=== PATIENT | female | born 1950 ===

== ENCOUNTER 2017-04-08 10:20 | Observation (INO) | payer MEDICARE, MEDICAID ==
[2017-04-08 10:20] VITALS: BMI 31.4
[2017-04-08] MEDS ORDERED: Sodium Chloride 0.9% 1,000 ML IV ONE ×2 (10:51→13:43)
--- NOTE | 2017-04-08 11:05 | C.PDOC ---
History Of Present Illness 67 y/o female presents to ED for evaluation of nausea, vomiting and diarrhea for 1 week associated with diffuse lower abdominal cramping pain. Patient reports, 3-4 episodes of vomiting daily and "numerous" episodes of watery diarrhea. Patient is able tolerating PO intake , pt denies recent antibiotic use. Otherwise, pt denies fever, chills, weakness, headache, dizziness, visual changes, neck pain, CP, SOB, dyspnea, palpitation, hematemesis, melena, hematoschezia, back pain, UTI sx, rash, denies recent travel or known sick contact. Ambulate to ED, not in any apparent distress. Time Seen by Provider: 04/08/17 10:35 Chief Complaint (Nursing): GI Problem History Per: Patient History/Exam Limitations: no limitations Onset/Duration Of Symptoms: Days Current Symptoms Are (Timing): Still Present Past Medical History Reviewed: Historical Data, Nursing Documentation, Vital Signs Vital Signs: Last Vital Signs Temp 97.7 F 04/08/17 18:18 Pulse 53 L 04/08/17 18:18 Resp 16 04/08/17 18:18 BP 165/82 H 04/08/17 18:18 Pulse Ox 100 04/08/17 18:18 - Medical History PMH: Anxiety, Asthma, Bipolar Disorder, Depression, HTN, Hypercholesterolemia, Schizophrenia Surgical History: Endoscopy Family History: States: No Known Family Hx - Social History Hx Alcohol Use: No Hx Substance Use: No - Immunization History Hx Tetanus Toxoid Vaccination: No Hx Influenza Vaccination: Yes (06/2015) Hx Pneumococcal Vaccination: Yes (07/2015) Review Of Systems Except As Marked, All Systems Reviewed And Found Negative. Constitutional: Negative for: Fever, Chills Gastrointestinal: Positive for: Vomiting, Diarrhea. Negative for: Hematemesis Genitourinary: Negative for: Dysuria, Frequency, Hematuria Skin: Negative for: Rash Physical Exam - Physical Exam Appears: Non-toxic, No Acute Distress Skin: Normal Color, Warm, Dry, No Rash Head: Normacephalic Eye(s): bilateral: PERRL Nose: No Flaring, No Discharge Oral Mucosa: Moist Throat: No Erythema, No Drooling Neck: Trachea Midline, Supple Chest: Symmetrical Cardiovascular: Rhythm Regular, No Murmur, No JVD Respiratory: No Decreased Breath Sounds, No Accessory Muscle Use, No Rales, No Rhonchi, No Stridor, No Wheezing Gastrointestinal/Abdominal: Soft, Tenderness (Mild to suprapubic area), No Guarding, No Rebound Back: No CVA Tenderness Extremity: Normal ROM, No Pedal Edema, Capillary Refill (<2 seconds), No Swelling Neurological/Psych: Oriented x3, Normal Speech ED Course And Treatment - Laboratory Results Result Diagrams: 04/08/17 11:15 04/08/17 11:15 O2 Sat by Pulse Oximetry: 96 (RA) Pulse Ox Interpretation: Normal - CT Scan/US CT abd/pelvis Other Rad Studies (CT/US): Radiology Report Reviewed CT/US Interpretation: PROCEDURE: CT Abdomen and Pelvis with contrast. HISTORY : lower abdominal pain, vomiting. COMPARISON: 07/09/16. TECHNIQUE: Contrast dose: 100 cc omnipaque. Radiation dose: Total exam DLP = 669 mGy-cm. This CT exam was performed using one or more of the following dose reduction techniques: Automated exposure control, adjustment of the mA and/or kV according to patient size, and/or use of iterative reconstruction technique. FINDINGS: LOWER THORAX: Unremarkable. LIVER: Unremarkable. No gross lesion or ductal dilatation. GALLBLADDER AND BILE DUCTS: Unremarkable. PANCREAS: Unremarkable. No gross lesion or ductal dilatation. SPLEEN: Unremarkable. ADRENALS: Unremarkable. No mass. KIDNEYS AND URETERS: Unremarkable. No hydronephrosis. No solid mass. VASCULATURE: Unremarkable. No aortic aneurysm. BOWEL: Unremarkable. No obstruction. No gross mural thickening. APPENDIX: Normal appendix. PERITONEUM: Unremarkable. No free fluid. No free air. LYMPH NODES: Unremarkable. No enlarged lymph nodes. BLADDER: Unremarkable. REPRODUCTIVE: Unremarkable. BONES: No acute fracture. OTHER FINDINGS: None. IMPRESSION: Unremarkable contrast enhanced CT of the abdomen and pelvis. Progress Note: UA, IV fluids, Blood work ED OBSERVATION Discharge: Yes Date of observation admission: 04/08/17 Time of observation admission: 10:00 - Observation admission statement Patient is being placed in observation because:: Abd. pain, N/V/D - Goals of Observation Goals of observation are:: Diagnostics, hydration, sx tx, re-eval - Progress Note Progress Note: 04/08/17 At 12:02, as per RN, pt had few episodes of diarrhea , while in ED. Afebrile, hemodynamicaly stable. non-toxic. Abd: benign, (-) guarding, (-) rebound. Blood work, UA results review and appears normal. At 13:50, pt still c/o cramping lower abdominal pain. CT abd/pelvis order. Bentyl, hydration order. AT 17:11, pt resting comfortably in bed, not in any apaprent dsitress. Po challenge given, tolerate well. Non-toxic. PulsEOx 96% RA ENT: no acute findings Neck: Supple, (-) JVD, (-) carotid bruits Lungs: CTA B/L, BS equal B/L. CVS: (+)S1S2, reg. Abd: benign, (-) guarding, (-) rebound, (-) localized tenderness. back: (-) CVA tenderness. CT abd/pelvis- normal study. Pt has clinical findings c/w epigstric pain.N/V/D r/o viral illness. Pt advised. ref. to f/u with PMD and GI in 2-3 days for re-eval. return to ED if any worsening or new changes. Disposition Counseled Patient/Family Regarding: Diagnosis, Need For Followup, Rx Given - Disposition Disposition: HOME/ ROUTINE Disposition Time: 17:19 Condition: STABLE - Clinical Impression Clinical Impression: Vomiting, Diarrhea - Scribe Statement The provider has reviewed the documentation as recorded by the Teresa Beckett All medical record entries made by the Teresa were at my direction and personally dictated by me. I have reviewed the chart and agree that the record accurately reflects my personal performance of the history, physical exam, medical decision making, and the department course for this patient. I have also personally directed, reviewed, and agree with the discharge instructions and disposition.
[2017-04-08 11:25] LABS: BASO % 0.9 % (0.0-2.0); EOS % 0.8 % (0.0-4.0); HEMATOCRIT 36.5 % (34.0-47.0); LYMPH # 1.9 K/uL (1.0-4.3); LYMPH % 38.1 % (20.0-40.0); MEAN CELL VOLUME 76.5 fL (81.0-99.0); MEAN CORPUSCULAR HEMOGLOBIN 25.4 pg (27.0-31.0); MEAN CORPUSCULAR HGB CONC 33.2 g/dL (33.0-37.0); MEAN PLATELET VOLUME 8.1 fL (7.2-11.7); MONO # 0.3 K/uL (0.0-0.8); MONO % 6.9 % (0.0-10.0); RED CELL DISTRIBUTION WIDTH 14.5 % (11.5-14.5)
[2017-04-08 11:26] LABS: URINE BILIRUBIN NEGATIVE (NEGATIVE); URINE BLOOD 1+ (NEGATIVE); URINE COLOR Straw (YELLOW); URINE GLUCOSE (UA) NORMAL (Normal); URINE KETONE NEGATIVE (NEGATIVE); URINE LEUKOCYTE ESTERASE NEG Leu/uL (Negative); URINE PROTEIN NEGATIVE (NEGATIVE); URINE UROBILINOGEN NORMAL mg/dL (0.2-1.0); WBC URINE 1 /hpf (0-5)
[2017-04-08 11:28] LABS: RBC URINE 2 /hpf (0-3); URINE BACTERIA RARE (<OCC)
[2017-04-08] MEDS ORDERED: Sodium Chloride 0.9% 1,000 ML ONE ×2 (11:32→13:55)
[2017-04-08 11:34] LABS: BLOOD UREA NITROGEN 11 mg/dL (7-17); CARBON DIOXIDE 24 mmol/L (22-30); CHLORIDE 99 mmol/L (98-107); GFR AFRICAN-AMERICAN > 60; GLUCOSE,RANDOM 70 mg/dL (65-105); POTASSIUM 3.2 mmol/L (3.6-5.2); SODIUM 139 mmol/L (132-148)
[2017-04-08 11:35] LABS: ALB/GLOB RATIO 1.4 (1.0-2.1); ALKALINE PHOSPHATASE 60 U/L (38-126); ALT/SGPT 31 U/L (9-52); AST/SGOT 23 U/L (14-36); BILIRUBIN,TOTAL 0.7 mg/dL (0.2-1.3); CALCIUM 9.4 mg/dl (8.6-10.4); TOTAL PROTEIN 7.3 g/dL (6.3-8.3)
[2017-04-08] MEDS ORDERED: Iodixanol 320 MG/ML 100 ML BOTTLE IV ONE (15:08)
[2017-04-08] MEDS ORDERED: Potassium Chloride 20 mEq ER Tab PO STA (16:31)
--- NOTE | 2017-04-08 16:57 | CT ---
PROCEDURE: CT Abdomen and Pelvis with contrast HISTORY: lower abdominal pain, vomiting COMPARISON: 07/09/16. TECHNIQUE: Contrast dose: 100 cc omnipaque Radiation dose: Total exam DLP = 669 mGy-cm. This CT exam was performed using one or more of the following dose reduction techniques: Automated exposure control, adjustment of the mA and/or kV according to patient size, and/or use of iterative reconstruction technique. FINDINGS: LOWER THORAX: Unremarkable. LIVER: Unremarkable. No gross lesion or ductal dilatation. GALLBLADDER AND BILE DUCTS: Unremarkable. PANCREAS: Unremarkable. No gross lesion or ductal dilatation. SPLEEN: Unremarkable. ADRENALS: Unremarkable. No mass. KIDNEYS AND URETERS: Unremarkable. No hydronephrosis. No solid mass. VASCULATURE: Unremarkable. No aortic aneurysm. BOWEL: Unremarkable. No obstruction. No gross mural thickening. APPENDIX: Normal appendix. PERITONEUM: Unremarkable. No free fluid. No free air. LYMPH NODES: Unremarkable. No enlarged lymph nodes. BLADDER: Unremarkable. REPRODUCTIVE: Unremarkable. BONES: No acute fracture. OTHER FINDINGS: None. IMPRESSION: Unremarkable contrast enhanced CT of the abdomen and pelvis.
[2017-04-08] MEDS ORDERED: Potassium Chloride 20 mEq ER Tab PO ONE (17:51)
[2017-04-08 18:19] VITALS: BP 165/82; PULSE 53; RESP 16; TEMP 97.7
[2017-04-08 18:29] VITALS: O2SAT 96
== END 2017-04-08 17:18 | disposition home or self-care (01) ==
LOC: C.ER 10:20 → C.9OBSV 11:00
PROVIDERS: ADMIT Emergency Medicine; ATTEND Emergency Medicine
DX: R11.2 Nausea with vomiting, unspecified (principal); R19.7 Diarrhea, unspecified; F41.8 Other specified anxiety disorders; I10 Essential (primary) hypertension; E78.00 Pure hypercholesterolemia, unspecified
CPT/HCPCS: 74177; 80053; 81001; 83690; 85025; 87045; 87230; 96360; 96374; C9113; G0328; G0378; J2270; J2405; J7040; Q9967

== ENCOUNTER 2017-05-04 08:03 | Inpatient (IN) | payer MEDICARE, MEDICAID ==
[2017-05-04 08:07] VITALS: BMI 29.0
[2017-05-04] MEDS ORDERED: Sodium Chloride 0.9% 1,000 ML IV STA (08:20)
[2017-05-04 08:49] LABS: BASO # 0.1 K/uL (0.0-0.2); BASO % 1.7 % (0.0-2.0); EOS % 0.7 % (0.0-4.0); HEMATOCRIT 35.6 % (34.0-47.0); LYMPH % 39.6 % (20.0-40.0); MEAN CELL VOLUME 75.9 fL (81.0-99.0); MEAN CORPUSCULAR HEMOGLOBIN 25.5 pg (27.0-31.0); MEAN CORPUSCULAR HGB CONC 33.6 g/dL (33.0-37.0); MEAN PLATELET VOLUME 7.8 fL (7.2-11.7); MONO # 0.3 K/uL (0.0-0.8); MONO % 6.2 % (0.0-10.0); NRBC % 0.1 % (0.0-2.0); RED CELL DISTRIBUTION WIDTH 14.7 % (11.5-14.5); WHITE BLOOD COUNT 5.1 K/uL (4.8-10.8)
--- NOTE | 2017-05-04 08:49 | C.PDOC ---
History Of Present Illness 67-year-old female, presents to the emergency department with complaints of dizziness. Patient states she woke up to use the bathroom around 22:00 last night, after which she developed sudden onset dizziness, causing her to fall and hit her head. Patient notes that she did not call anyone, and went to sleep , she woke up this morning with a headache, resulting in her coming to the ED for evaluation. Denies nausea/vomiting, fevers, chills, visual changes, back pain, or any other associated symptoms. No other complaints at this time. Chief Complaint (Nursing): Syncope History Per: Patient History/Exam Limitations: no limitations Past Medical History Reviewed: Historical Data, Nursing Documentation, Vital Signs Vital Signs: Last Vital Signs Temp 97.7 F 05/04/17 16:41 Pulse 52 L 05/04/17 16:41 Resp 20 05/04/17 16:41 BP 165/71 H 05/04/17 16:41 Pulse Ox 97 05/04/17 18:45 - Medical History PMH: Anxiety, Asthma, Bipolar Disorder, Depression, HTN, Hypercholesterolemia, Schizophrenia Denies: Chronic Kidney Disease Surgical History: Endoscopy Family History: States: No Known Family Hx - Social History Hx Alcohol Use: No Hx Substance Use: No - Immunization History Hx Tetanus Toxoid Vaccination: No Hx Influenza Vaccination: Yes (06/2015) Hx Pneumococcal Vaccination: Yes (07/2015) Review Of Systems Except As Marked, All Systems Reviewed And Found Negative. Constitutional: Negative for: Fever, Chills Cardiovascular: Negative for: Chest Pain Respiratory: Negative for: Shortness of Breath Gastrointestinal: Negative for: Nausea, Vomiting Neurological: Positive for: Headache, Dizziness Physical Exam - Physical Exam Appears: Non-toxic, No Acute Distress Skin: Warm, Dry, No Rash Head: Atraumatic, Normacephalic Eye(s): bilateral: Normal Inspection Nose: Normal Oral Mucosa: Moist Lips: Normal Appearing Neck: Normal ROM Cardiovascular: Rhythm Regular Respiratory: Normal Breath Sounds, No Accessory Muscle Use Gastrointestinal/Abdominal: Soft, No Tenderness Back: Normal Inspection Extremity: Normal ROM Neurological/Psych: Oriented x3, Normal Speech ED Course And Treatment - Laboratory Results Result Diagrams: 05/04/17 08:45 05/04/17 08:45 O2 Sat by Pulse Oximetry: 97 - Other Rad CXR X-Ray: Viewed By Me, Read By Radiologist Interpretation: Accession No. : [id number]. Patient Name / ID : CHRIS MANCUSO / [id number]. Exam Date : 05/04/2017 08:20:08 ( Approved ). Study Comment : Sex / Age : F / 67Y. Creator : Ruiz Narvaez MD. Dictator : Ruiz Narvaez MD. Cnmt : Environmental Remediation Specialist : Ruiz Narvaez MD. Approver2 : Report Date : 05/04/2017 12:33:27. My Comment : . PROCEDURE: CHEST RADIOGRAPH, 1 VIEW Technique: Single view portable semi erect @ 20:22. HISTORY: syncope. COMPARISON: 02/26/2016. FINDINGS: LUNGS: Clear. PLEURA : No pneumothorax or pleural fluid seen. CARDIOVASCULAR: No radiographic findings to suggest acute or significant cardiovascular disease. OSSEOUS STRUCTURES: No significant abnormalities. VISUALIZED UPPER ABDOMEN: Normal. OTHER FINDINGS: None. IMPRESSION: No active disease. No acute/significant interval changes. . Please note: No preliminary report/ innterpretation of this examination provided by emergency department personnel. - CT Scan/US Head CT Other Rad Studies (CT/US): Read By Radiologist, Radiology Report Reviewed CT/US Interpretation: Accession No. : [id number]. Patient Name / ID : CHRIS MANCUSO / [id number]. Exam Date : 05/04/2017 09:28:53 ( Approved ). Study Comment : Sex / Age : F / 67Y. Creator : Carla Huang MD. Dictator : Carla Huang MD. Cnmt : Environmental Remediation Specialist : Carla Huang MD. Approver2 : Report Date : 05/04/2017 10:13:26. My Comment : . PROCEDURE: CT HEAD WITHOUT CONTRAST. HISTORY: syncope/fall/head injury. COMPARISON: Comparison is made to 06/07/2013. TECHNIQUE: Axial computed tomography images were obtained through the head/brain without intravenous contrast. Radiation dose: Total exam DLP = 777.05 mGy-cm. This CT exam was performed using one or more of the following dose reduction techniques: Automated exposure control, adjustment of the mA and/or kV according to patient size, and/or use of iterative reconstruction technique. FINDINGS: HEMORRHAGE: No intracranial hemorrhage. BRAIN: No mass effect or edema. Mild atrophy and [id number] chronic microvascular ischemic disease. VENTRICLES: Unremarkable. No hydrocephalus. CALVARIUM: Unremarkable. PARANASAL SINUSES: Mucosal thickening and air-fluid level at the left sphenoid sinus is noted. MASTOID AIR CELLS: Unremarkable as visualized. No inflammatory changes. OTHER FINDINGS: None. IMPRESSION: No evidence of acute intracranial hemorrhage intracranial collection mass effect or midline shift. Volume loss and chronic microvascular ischemic disease. Left sphenoid sinusitis. Medical Decision Making Medical Decision Making: Plan: * CT Head * Labs * Chest X-Ray * IVFs * Urinalysis * Reassess and Disposition * * Case was d/w who covers for patient's PMD . He requested patient to admitted to the service with him on consult. Case was d/w who accepted patient to his service for observation. Disposition - Disposition Disposition: HOSPITALIZED Disposition Time: 11:35 Condition: FAIR - Clinical Impression Clinical Impression: Syncope - Scribe Statement The provider has reviewed the documentation as recorded by the Scribe (Pradeep Westbrook) All medical record entries made by the Scribe were at my direction and personally dictated by me. I have reviewed the chart and agree that the record accurately reflects my personal performance of the history, physical exam, medical decision making, and the department course for this patient. I have also personally directed, reviewed, and agree with the discharge instructions and disposition. Decision To Admit - Pt Status Changed To: Hospital Disposition Of: Observation - . Bed Request Type: Telemetry Admitting Physician: Maryuri Dumas Patient Diagnosis: Syncope
[2017-05-04 08:58] LABS: CHLORIDE 98 mmol/L (98-107); POTASSIUM 4.6 mmol/L (3.6-5.2); SODIUM 131 mmol/L (132-148)
[2017-05-04 09:00] LABS: ALB/GLOB RATIO 1.3 (1.0-2.1); AST/SGOT 36 U/L (14-36); BILIRUBIN,TOTAL 1.1 mg/dL (0.2-1.3); CARBON DIOXIDE 21 mmol/L (22-30); GFR AFRICAN-AMERICAN > 60
[2017-05-04 09:01] LABS: ALKALINE PHOSPHATASE 49 U/L (38-126); ALT/SGPT 23 U/L (9-52); BLOOD UREA NITROGEN 7 mg/dL (7-17); CALCIUM 8.8 mg/dl (8.6-10.4); GLUCOSE,RANDOM 85 mg/dL (65-105)
[2017-05-04 09:15] LABS: RBC URINE < 1 /hpf (0-3); URINE BACTERIA RARE (<OCC); URINE BILIRUBIN NEGATIVE (NEGATIVE); URINE BLOOD 1+ (NEGATIVE); URINE COLOR Colorless (YELLOW); URINE GLUCOSE (UA) NORMAL (Normal); URINE KETONE NEGATIVE (NEGATIVE); URINE LEUKOCYTE ESTERASE NEG Leu/uL (Negative); URINE PROTEIN NEGATIVE (NEGATIVE); URINE UROBILINOGEN NORMAL mg/dL (0.2-1.0); WBC URINE < 1 /hpf (0-5)
--- NOTE | 2017-05-04 10:14 | CT ---
PROCEDURE: CT HEAD WITHOUT CONTRAST. HISTORY: syncope/fall/head injury COMPARISON: Comparison is made to 06/07/2013 TECHNIQUE: Axial computed tomography images were obtained through the head/brain without intravenous contrast. Radiation dose: Total exam DLP = 777.05 mGy-cm. This CT exam was performed using one or more of the following dose reduction techniques: Automated exposure control, adjustment of the mA and/or kV according to patient size, and/or use of iterative reconstruction technique. FINDINGS: HEMORRHAGE: No intracranial hemorrhage. BRAIN: No mass effect or edema. Mild atrophy and [id number] chronic microvascular ischemic disease. VENTRICLES: Unremarkable. No hydrocephalus. CALVARIUM: Unremarkable. PARANASAL SINUSES: Mucosal thickening and air-fluid level at the left sphenoid sinus is noted. MASTOID AIR CELLS: Unremarkable as visualized. No inflammatory changes. OTHER FINDINGS: None. IMPRESSION: No evidence of acute intracranial hemorrhage intracranial collection mass effect or midline shift. Volume loss and chronic microvascular ischemic disease. Left sphenoid sinusitis.
--- NOTE | 2017-05-04 12:30 | CP.PCM.CON ---
History of Present Illness - History of Present Illness History of Present Illness: Patient with history of multiple medical and psych issues who feel down or passed out when she was going to bath room. As per patient gerri was sleeping and got up and was trying to go to bath when this happened. As per patient she passed out. Now resting in bed complaining of headache. Past Patient History - Infectious Disease Hx of Infectious Diseases: None - Past Medical History & Family History Past Medical History?: Yes - Past Social History Smoking Status: Never Smoked - CARDIAC Hx Hypercholesterolemia: Yes Hx Hypertension: Yes - PULMONARY Hx Asthma: Yes - NEUROLOGICAL Hx Neurological Disorder: No - HEENT Hx HEENT Problems: No - RENAL Hx Chronic Kidney Disease: No - ENDOCRINE/METABOLIC Hx Diabetes Mellitus Type 2: (denies 04/08/17) - HEMATOLOGICAL/ONCOLOGICAL Hx Blood Disorders: No - INTEGUMENTARY Hx Dermatological Problems: No - MUSCULOSKELETAL/RHEUMATOLOGICAL Hx Musculoskeletal Disorders: Yes Hx Back Pain: Yes Hx Falls: Yes (IN BATHTUB 6 MONTHS AGO; GOING FOR PT.) - GASTROINTESTINAL Hx Gastrointestinal Disorders: No - GENITOURINARY/GYNECOLOGICAL Hx Genitourinary Disorders: No - PSYCHIATRIC Hx Anxiety: Yes Hx Bipolar Disorder: Yes Hx Depression: Yes Hx Schizophrenia: Yes Hx Substance Use: No - SURGICAL HISTORY Hx Surgeries: Yes Hx Breast Biopsy: Yes Other/Comment: right breast lumpectomy. - ANESTHESIA Hx Anesthesia: Yes Hx Anesthesia Reactions: No Hx Malignant Hyperthermia: No Meds Allergies/Adverse Reactions: Allergies Allergy/AdvReac Type Severity Reaction Status Date / Time Penicillins Allergy Intermediate RASH Verified 05/04/17 08:06 Physical Exam - Head Exam Head Exam: NORMOCEPHALIC - Neck Exam Neck exam: Positive for: Normal Inspection - Respiratory Exam Respiratory Exam: NORMAL BREATHING PATTERN - Cardiovascular Exam Cardiovascular Exam: Bradycardia - Extremities Exam Extremities exam: Positive for: normal inspection Additional comments: Bruise on left arm. - Neurological Exam Neurological exam: Oriented x3 Results - Vital Signs Recent Vital Signs: Last Vital Signs Temp 98.0 F 05/04/17 08:08 Pulse 50 L 05/04/17 12:10 Resp 16 05/04/17 12:10 BP 175/61 H 05/04/17 12:10 Pulse Ox 97 05/04/17 12:10 - Labs Result Diagrams: 05/04/17 08:45 05/04/17 08:45 Labs: Laboratory Results - last 24 hr 05/04/17 05/04/17 05/04/17 08:45 08:45 08:45 WBC 5.1 RBC 4.69 Hgb 11.9 Hct 35.6 MCV 75.9 L MCH 25.5 L MCHC 33.6 RDW 14.7 H Plt Count 210 MPV 7.8 Neut % (Auto) 51.8 Lymph % (Auto) 39.6 [place] % (Auto) 6.2 Eos % (Auto) 0.7 Baso % (Auto) 1.7 Neut # 2.7 Lymph # 2.0 [place] # 0.3 Eos # 0.0 Baso # 0.1 PT 11.6 INR 1.0 APTT 28 Sodium 131 L Potassium 4.6 Chloride 98 Carbon Dioxide 21 L Anion Gap 17 BUN 7 Creatinine 0.6 L Est GFR ( Amer) > 60 Est GFR (Non-Af Amer) > 60 Random Glucose 85 Calcium 8.8 Total Bilirubin 1.1 AST 36 D ALT 23 Alkaline Phosphatase 49 Total Creatine Kinase 160 H CK-MB (Mass) 1.59 Troponin I < 0.0120 Total Protein 8.0 Albumin 4.5 Globulin 3.5 Albumin/Globulin Ratio 1.3 Urine Color Urine Clarity Urine pH Ur Specific [place] Urine Protein Urine Glucose (UA) Urine Ketones Urine Blood Urine Nitrate Urine Bilirubin Urine Urobilinogen Ur Leukocyte Esterase Urine WBC (Auto) Urine RBC (Auto) Ur Squamous Epith Cells Urine Bacteria 05/04/17 08:46 WBC RBC Hgb Hct MCV MCH MCHC RDW Plt Count MPV Neut % (Auto) Lymph % (Auto) [place] % (Auto) Eos % (Auto) Baso % (Auto) Neut # Lymph # [place] # Eos # Baso # PT INR APTT Sodium Potassium Chloride Carbon Dioxide Anion Gap BUN Creatinine Est GFR ( Amer) Est GFR (Non-Af Amer) Random Glucose Calcium Total Bilirubin AST ALT Alkaline Phosphatase Total Creatine Kinase CK-MB (Mass) Troponin I Total Protein Albumin Globulin Albumin/Globulin Ratio Urine Color Colorless Urine Clarity Clear Urine pH 5.0 Ur Specific [place] 1.001 L Urine Protein Negative Urine Glucose (UA) Normal Urine Ketones Negative Urine Blood 1+ H Urine Nitrate Negative Urine Bilirubin Negative Urine Urobilinogen Normal Ur Leukocyte Esterase Neg Urine WBC (Auto) < 1 Urine RBC (Auto) < 1 Ur Squamous Epith Cells 1 Urine Bacteria Rare Assessment & Plan (1) Syncope and collapse Status: Acute (2) Fall Assessment and Plan: Fall/syncope. Monitor on telemetry, etiology not clear. May be secondary to loss of balance due to incomplete orientation. Status: Acute (3) Bradycardia Assessment and Plan: Physiologic vs Iatrogenic. D/C any medication which can cause bradycardia. Control BP. Status: Acute
--- NOTE | 2017-05-04 12:35 | RAD ---
PROCEDURE: CHEST RADIOGRAPH, 1 VIEW Technique: Single view portable semi erect @ 20:22. HISTORY: syncope COMPARISON: 02/26/2016 FINDINGS: LUNGS: Clear. PLEURA: No pneumothorax or pleural fluid seen. CARDIOVASCULAR: No radiographic findings to suggest acute or significant cardiovascular disease. OSSEOUS STRUCTURES: No significant abnormalities. VISUALIZED UPPER ABDOMEN: Normal. OTHER FINDINGS: None. IMPRESSION: No active disease. No acute/significant interval changes. Please note: No preliminary report/ innterpretation of this examination provided by emergency department personnel.
--- NOTE | 2017-05-04 14:53 | CP.PCM.HP ---
History of Present Illness - History of Present Illness History of Present Illness: COMPREHENSIVE HISTORY & PHYSICAL EXAM HPI ADMITTED WITH H/O SYNCOPY PT GOT UP TO GO TO BATHROOM AND FELT WEAK AND ALMOST PASSED OUT THERE WAS NO WITNESSED SEIZURES THERE WAS ONLY S BRADYCARDIA IN THE ER W/U PAST HIST. HTN/PSYCH ISSUES /GI PROBLEMS PERSONAL HIST: Smoking. N Alcohol. N Allergy N Travel_- . FAMILY HIST : ROS : Constitutional: Negative for weight change, chills, night sweats Eyes: Negative for redness, swelling, itching, discharge, vision changes, blurry vision, double vision, glaucoma, cataracts, Ears: Negative for hearing loss, ringing, , tinnitus, vertigo Nose: Negative for rhinorrhea, stuffiness, sniffing, itching, postnasal drip, discoloration, nasal congestion and epistaxis. Throat: Negative for throat clearing, sore throat, hoarseness, difficulty swallowing and difficulty speaking. Respiratory: Negative for cough, , sputum production, chest tightness, wheezing, pleuritic chest pain ,daytime somnolence, chronic cough, hemoptysis, snoring at night, Cardiovascular: Negative for chest pain, palpitations, orthopnea, PND, Edema of legs, leg cramps, angina, claudication, , irregular heartbeat, Neurology: Negative for irritability, muscle weakness, numbness and tingling, seizures, tremors, migraines, slurred speech, memory loss, mood changes, recurrent headaches Gastrointestinal: Negative for difficulty swallowing, diarrhea, constipation, black stools, rectal bleeding, nausea, flatulence, reflux, poor appetite, changes in bowel habits, abdominal pain Genitourinary: Negative for frequent urination, hematuria, discharge, incontinence, urinary retention, frequent UTI, Psychiatric: Negative for depression, anxiety/panic, suicidal tendencies, Musculoskeletal: Negative for swollen joints, back pain, , neck pain, morning stiffness of joints, . Skin: Negative for rash, ulcers, itching, dry skin and pigmented lesions. P/E: Constitutional: Appears stated age and in no apparent distress. Head: Normocephalic. Ears: External ear canals patent without inflammation. Tympanic membranes intact with normal light reflex and landmark. Eyes: Pupils are central, bilaterally equal, symmetrical and reacts to light with normal movements and no icterus or pallor. Nose: External nares are patent. Mucosa is pink Mouth-Throat: Good general appearance and condition. No post-pharyngeal/oropharyngeal erythema and tonsillar hypertrophy. Good dental hygiene. Neck-Lymphatic: Neck is supple with normal ROM, no thyromegaly, lymph nodes or masses. JVD is normal with no carotid bruit. Lungs: Clear to percussion and auscultation with bilateral normal air entry. Cardiovascular: S1 and S2 are normal with no murmurs, gallops and rub. GI Exam: No hepatomegaly. Abdomen is soft and non-tender. No Organomegaly , masses or hernias are evident and bowel sounds are normal and active. Neurology: Higher function and all cranial nerves intact, with no gross motor or sensory deficit. Superficial and deep reflexes are normal with downwards planters. No cerebellar deficit with normal gait. Musculoskeletal: No tender spots with normal curvature of the spine with no swelling or restricted ROM of the small and large joints. Extremities: Homans sign absent. Intact pulses with no pitting edema, calf tenderness or skin color changes. Skin: No rash, eruptions or abnormal skin pigmentation LAB/RADIOLOGY: ASSESMENT : NEAR SYNCOPAL EPISODE , ? POSTURAL HYPOTENSION, TIA , CARDIAC ARRYHTHMIA HTN PLAN: CARDIO/NEURO W/U Present on Admission - Present on Admission Any Indicators Present on Admission: No Past Patient History - Infectious Disease Hx of Infectious Diseases: None - Past Medical History & Family History Past Medical History?: Yes - Past Social History Smoking Status: Never Smoked - CARDIAC Hx Hypercholesterolemia: Yes Hx Hypertension: Yes - PULMONARY Hx Asthma: Yes - NEUROLOGICAL Hx Neurological Disorder: No - HEENT Hx HEENT Problems: No - RENAL Hx Chronic Kidney Disease: No - ENDOCRINE/METABOLIC Hx Diabetes Mellitus Type 2: (denies 04/08/17) - HEMATOLOGICAL/ONCOLOGICAL Hx Blood Disorders: No - INTEGUMENTARY Hx Dermatological Problems: No - MUSCULOSKELETAL/RHEUMATOLOGICAL Hx Musculoskeletal Disorders: Yes Hx Back Pain: Yes Hx Falls: Yes (IN BATHTUB 6 MONTHS AGO; GOING FOR PT.) - GASTROINTESTINAL Hx Gastrointestinal Disorders: No - GENITOURINARY/GYNECOLOGICAL Hx Genitourinary Disorders: No - PSYCHIATRIC Hx Anxiety: Yes Hx Bipolar Disorder: Yes Hx Depression: Yes Hx Schizophrenia: Yes Hx Substance Use: No - SURGICAL HISTORY Hx Surgeries: Yes Hx Breast Biopsy: Yes Other/Comment: right breast lumpectomy. - ANESTHESIA Hx Anesthesia: Yes Hx Anesthesia Reactions: No Hx Malignant Hyperthermia: No Meds Allergies/Adverse Reactions: Allergies Allergy/AdvReac Type Severity Reaction Status Date / Time Penicillins Allergy Intermediate RASH Verified 05/04/17 08:06 Results - Vital Signs Recent Vital Signs: Last Vital Signs Temp 97.6 F 05/04/17 14:11 Pulse 51 L 05/04/17 14:11 Resp 18 05/04/17 14:11 BP 136/67 05/04/17 14:11 Pulse Ox 98 05/04/17 14:11 - Labs Result Diagrams: 05/04/17 08:45 05/04/17 08:45 Labs: Laboratory Results - last 24 hr 05/04/17 05/04/17 05/04/17 08:45 08:45 08:45 WBC 5.1 RBC 4.69 Hgb 11.9 Hct 35.6 MCV 75.9 L MCH 25.5 L MCHC 33.6 RDW 14.7 H Plt Count 210 MPV 7.8 Neut % (Auto) 51.8 Lymph % (Auto) 39.6 [place] % (Auto) 6.2 Eos % (Auto) 0.7 Baso % (Auto) 1.7 Neut # 2.7 Lymph # 2.0 [place] # 0.3 Eos # 0.0 Baso # 0.1 PT 11.6 INR 1.0 APTT 28 Sodium 131 L Potassium 4.6 Chloride 98 Carbon Dioxide 21 L Anion Gap 17 BUN 7 Creatinine 0.6 L Est GFR ( Amer) > 60 Est GFR (Non-Af Amer) > 60 Random Glucose 85 Calcium 8.8 Total Bilirubin 1.1 AST 36 D ALT 23 Alkaline Phosphatase 49 Total Creatine Kinase 160 H CK-MB (Mass) 1.59 Troponin I < 0.0120 Total Protein 8.0 Albumin 4.5 Globulin 3.5 Albumin/Globulin Ratio 1.3 Urine Color Urine Clarity Urine pH Ur Specific [place] Urine Protein Urine Glucose (UA) Urine Ketones Urine Blood Urine Nitrate Urine Bilirubin Urine Urobilinogen Ur Leukocyte Esterase Urine WBC (Auto) Urine RBC (Auto) Ur Squamous Epith Cells Urine Bacteria 05/04/17 08:46 WBC RBC Hgb Hct MCV MCH MCHC RDW Plt Count MPV Neut % (Auto) Lymph % (Auto) [place] % (Auto) Eos % (Auto) Baso % (Auto) Neut # Lymph # [place] # Eos # Baso # PT INR APTT Sodium Potassium Chloride Carbon Dioxide Anion Gap BUN Creatinine Est GFR ( Amer) Est GFR (Non-Af Amer) Random Glucose Calcium Total Bilirubin AST ALT Alkaline Phosphatase Total Creatine Kinase CK-MB (Mass) Troponin I Total Protein Albumin Globulin Albumin/Globulin Ratio Urine Color Colorless Urine Clarity Clear Urine pH 5.0 Ur Specific [place] 1.001 L Urine Protein Negative Urine Glucose (UA) Normal Urine Ketones Negative Urine Blood 1+ H Urine Nitrate Negative Urine Bilirubin Negative Urine Urobilinogen Normal Ur Leukocyte Esterase Neg Urine WBC (Auto) < 1 Urine RBC (Auto) < 1 Ur Squamous Epith Cells 1 Urine Bacteria Rare
[2017-05-05] MEDS ORDERED: LINACLOTIDE 72 MCG PO SCH (10:00)
[2017-05-05] MEDS: Pantoprazole 40 mg EC Tab PO SCH (10:28)
[2017-05-05] MEDS: Enoxaparin 40 mg Syringe SC SCH (10:29)
--- NOTE | 2017-05-05 13:23 | CP.PCM.PN ---
Subjective - Date & Time of Evaluation Date of Evaluation: 05/05/17 Time of Evaluation: 13:22 - Subjective Subjective: CHIEF COMPLAINTS TODAY : S. ANJUM PERSISTS ROS. HEENT : N. Resp : No cough, wheezing ,pleuritic CP ,or hemoptysis Cardio : No anginal CP, PND, orthopnea, palpitation GI : No abd.pain, n/v ,diarrhea or GI bleeding . 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 Musculoskel : No joint swelling , Derm : No rash Psych : Normal affect. Ext : No swelling ,calf pain PE. Pt. is alert awake in no distress. V.S As noted in the chart Head ,ear nose,throat and eyes : Normal. Neck : Supple with normal carotids. Lungs: Clear air entry. Heart : S1 & S2 normal with S4. No murmur. Abd : Soft non tender with normal bowel sounds. Neuro : Moves all ext. with no localized deficit. Ext : No edema with intact pulses.Non tender calves Derm : No rashes or decubitus ulcer. LABS/RADIOLOGY: ASSESSMENT/PLAN : CHECK TSH CARDIO/NEURO W/U Objective - Vital Signs/Intake and Output Vital Signs (last 24 hours): Temp Pulse Resp BP Pulse Ox 97.5 F L 50 L 20 172/88 H 94 L 05/04/17 23:33 05/05/17 10:27 05/04/17 23:33 05/05/17 10:27 05/04/17 23:33 - Medications Medications: Current Medications Amlodipine Besylate (Norvasc) 5 mg PO DAILY [facility] Last Admin: 05/05/17 10:28 Dose: 5 mg Aspirin (Aspirin Chewable) 81 mg PO DAILY [facility] Last Admin: 05/05/17 10:28 Dose: 81 mg Enoxaparin Sodium (Lovenox) 40 mg SC DAILY [facility] Last Admin: 05/05/17 10:29 Dose: 40 mg Gabapentin (Neurontin) 400 mg PO BID [facility] Last Admin: 05/05/17 10:28 Dose: 400 mg Home Med (Linaclotide [Linzess]) 72 mcg PO DAILY [facility] Lactulose (Enulose) 10 gm PO DAILY PRN PRN Reason: Constipation Last Admin: 05/05/17 10:28 Dose: 10 gm Lorazepam (Ativan) 2 mg PO DAILY [facility] Last Admin: 05/05/17 10:34 Dose: 2 mg Pantoprazole Sodium (Protonix Ec Tab) 40 mg PO DAILY [facility] Last Admin: 05/05/17 10:28 Dose: 40 mg Pneumococcal Polyvalent Vaccine (Pneumovax 23 Vaccine) 0.5 ml IM .ONCE ONE Stop: 05/07/17 10:01 Rosuvastatin Calcium (Crestor) 5 mg PO HS [facility] Last Admin: 05/04/17 21:11 Dose: 5 mg Sertraline HCl (Zoloft) 50 mg PO DAILY [facility] Last Admin: 05/05/17 10:28 Dose: 50 mg Trazodone HCl (Desyrel) 100 mg PO HS [facility] Last Admin: 05/04/17 21:11 Dose: 100 mg - Labs Labs: 05/04/17 08:45 05/04/17 08:45 PT 11.6 SECONDS (9.7-12.2) 05/04/17 08:45 INR 1.0 05/04/17 08:45 APTT 28 SECONDS (21-34) 05/04/17 08:45
[2017-05-05] MEDS ORDERED: Gadodiamide 287 MG/ML VIAL (15ML) IV ONE (15:45)
--- NOTE | 2017-05-05 16:43 | MRI ---
PROCEDURE: MRI BRAIN WITH AND WITHOUT CONTRAST HISTORY: TIA COMPARISON: Comparison is made to the previous CT dated 05/04/2017 TECHNIQUE: Multiplanar, multisequence MR images of the brain were obtained with and without intravenous contrast enhancement. FINDINGS: HEMORRHAGE: None DWI: No evidence of an acute or early subacute infarction. BRAIN PARENCHYMA: No mass,mass effect or edema. Mild atrophy is noted. Mild white matter changes are also noted suggestive but nonspecific for chronic microvascular ischemic disease. ENHANCEMENT: No abnormal intracranial enhancement. VENTRICLES: Unremarkable. No hydrocephalus. CRANIUM: Unremarkable. ORBITS: Grossly unremarkable. PARANASAL SINUSES/MASTOIDS: [id number] mucosal thickening seen in the left sphenoid sinus. VASCULAR SYSTEM: Skull base flow voids intact. OTHER FINDINGS: None . IMPRESSION: No evidence of acute infarction or acute pathology in the brain. Mild volume loss and mild white matter changes suggestive of chronic microvascular ischemic disease. [id number] left sphenoid sinus mucosal thickening.
--- NOTE | 2017-05-05 21:35 | CARD ---
APPROVED REPORT EKG Measurement Heart [id number] <Conclusion> Sinus bradycardia Minimal voltage criteria for LVH, may be normal variant Borderline ECG
--- NOTE | 2017-05-05 22:31 | CARD ---
APPROVED REPORT EXAM: Two-dimensional and M-mode echocardiogram with Doppler and color Doppler. Other Information Quality : GoodRhythm : NSR INDICATION Syncope CARDIAC ARRY 2D DIMENSIONS IVSd0.9 (0.7-1.1cm)LVDd3.9 (3.9-5.9cm) PWd0.9 (0.7-1.1cm)LVDs2.9 (2.5-4.0cm) FS (%) 25.5 %LVEF (%)54.0 (>50%) M-Mode DIMENSIONS Left Atrium (MM)3.64 (2.5-4.0cm)Aortic Root2.99 (2.2-3.7cm) Aortic Cusp Exc.1.95 (1.5-2.0cm) Mitral Valve MV E Dlgibrry255.4cm/sMV A Jrkuxvph67.0cm/sE/A ratio1.3 TDI E/Lateral E'0.0E/Medial E'0.0 Tricuspid Valve TR Peak [id number]/[id number] Peak Gr.[id number] LEFT VENTRICLE The left ventricle is normal size. There is normal left ventricular wall thickness. Left ventricle systolic function is low normal with Ejection Fraction of 50-55%. There is normal LV segmental wall motion. The left ventricular diastolic function is normal. No left ventricle thrombus noted on this study. RIGHT VENTRICLE The right ventricle is normal size. The right ventricular systolic function is normal. ATRIA The left atrium size is normal. The right atrium size is normal. AORTIC VALVE The aortic valve is mildly sclerotic. The aortic valve is trileaflet. No aortic regurgitation is present. There is no aortic valvular stenosis. There is no aortic valvular vegetation. MITRAL VALVE Mitral annular calcification is mild to moderate. The mitral valve leaflets are thickened. There is no evidence of mitral valve prolapse. There is no mitral valve stenosis. Mitral regurgitation is mild to moderate. TRICUSPID VALVE The tricuspid valve is normal in structure. There is mild to moderate tricuspid regurgitation. Right ventricular systolic pressure is estimated at 30-40 mmHg. There is no pulmonary hypertension. There is no tricuspid valve prolapse or vegetation. There is no tricuspid valve stenosis. PULMONIC VALVE The pulmonic valve is not well visualized. There is trace to mild pulmonic valvular regurgitation. GREAT VESSELS The aortic root is normal in size. The IVC is normal in size and collapses >50% with inspiration. PERICARDIAL EFFUSION There is no pericardial effusion. There is no pleural effusion. <Conclusion> The left ventricle is normal size. Left ventricle systolic function is low normal with Ejection Fraction of 50-55%. The left ventricular diastolic function is normal. The right ventricle is normal size. The right ventricular systolic function is normal. The left atrium size is normal. The right atrium size is normal. Mitral regurgitation is mild to moderate. There is mild to moderate tricuspid regurgitation. There is trace to mild pulmonic valvular regurgitation.
[2017-05-06] MEDS: Enoxaparin 40 mg Syringe SC SCH (09:15)
[2017-05-06] MEDS: Pantoprazole 40 mg EC Tab PO SCH (09:16)
[2017-05-06 09:35] LABS: CHLORIDE 100 mmol/L (98-107)
[2017-05-06 09:36] LABS: SODIUM 136 mmol/L (132-148)
[2017-05-06 09:38] LABS: ALB/GLOB RATIO 1.3 (1.0-2.1); ALKALINE PHOSPHATASE 64 U/L (38-126); ALT/SGPT 29 U/L (9-52); AST/SGOT 21 U/L (14-36); BILIRUBIN,TOTAL 0.8 mg/dL (0.2-1.3); BLOOD UREA NITROGEN 12 mg/dL (7-17); CARBON DIOXIDE 23 mmol/L (22-30); GFR AFRICAN-AMERICAN > 60; GLUCOSE,RANDOM 70 mg/dL (65-105); TOTAL PROTEIN 7.8 g/dL (6.3-8.3)
[2017-05-06 09:39] LABS: CALCIUM 9.4 mg/dl (8.6-10.4)
[2017-05-06 10:08] LABS: THYROID STIMULATING HORMONE 0.51 mIU/L (0.46-4.68)
--- NOTE | 2017-05-06 10:50 | VASCLAB ---
PROCEDURE: HISTORY: TIA COMPARISON: No previous vascular exam. TECHNIQUE: Grayscale and duplex Doppler evaluation of the cervical carotid and vertebral arteries were performed. The common carotid, carotid bifurcations and cervical Internal Carotid Artery (ICA) and proximal External Carotid Artery (ECA) were evaluated. The vertebral arteries were evaluated for gross patency and flow direction. Report prepared by MARGIE Guajardo FINDINGS: RIGHT CAROTID ARTERIES: 1. Common Carotid Artery: No significant focal plaque formation of the right common carotid artery. Maximum Peak Systolic velocity: 77 cm/sec: End-diastolic velocity 20 cm/sec. 2. Carotid Bifurcation: plaque formation. Maximum Peak Systolic velocity: 56 cm/sec: End-diastolic velocity 10 cm/sec. 3. Internal Carotid Artery: Plaque description: Heterogeneous 3.1. Proximal Segment: Peak systolic velocity 62 cm/sec: End-diastolic velocity 20 cm/sec - % stenosis 0-15% 3.2. Middle Segment: Peak systolic velocity 82 cm/sec: End-diastolic velocity 19 cm/sec - % stenosis 0-15% 3.3. Distal Segment: Peak systolic velocity 106 cm/sec: End-diastolic velocity 27 cm/sec - % stenosis 0-15% 4. External Carotid Artery: No significant focal plaque formation. Peak systolic velocity 47 cm/sec 5. ICA/CCA Ratio: 1.5 LEFT CAROTID ARTERIES: 1. Common Carotid Artery: No significant focal plaque formation of the left common carotid artery. Maximum Peak Systolic velocity: 83 cm/sec: End-diastolic velocity 18 cm/sec. 2. Carotid Bifurcation: Heterogeneous plaque formation. Maximum Peak Systolic velocity: 40 cm/sec: End-diastolic velocity 11 cm/sec. 3. Internal Carotid Artery: Plaque description: Heterogeneous 3.1. Proximal Segment: Peak systolic velocity 79 cm/sec: End-diastolic velocity 25 cm/sec - % stenosis 0-15% 3.2. Middle Segment: Peak systolic velocity 60 cm/sec: End-diastolic velocity 22 cm/sec - % stenosis 0-15% 3.3. Distal Segment: Peak systolic velocity 123 cm/sec: End-diastolic velocity 36 cm/sec - % stenosis 0-15% 4. External Carotid Artery: No significant focal plaque formation. Peak systolic velocity 57 cm/sec 5. ICA/CCA Ratio: 1.9 VERTEBRAL ARTERIES: 1. Right Vertebral Artery: The right vertebral artery flow direction is antegrade. 2. Left Vertebral Artery: The left vertebral artery flow direction is antegrade. OTHER FINDINGS: 1. Right Brachial Blood pressure: 130 mmHg. 2. Left Brachial Blood pressure: 125 mmHg. IMPRESSION: RIGHT: Duplex scan does not suggest hemodynamically significant stenosis of the right extracranial carotid arteries. LEFT: Duplex scan does not suggest hemodynamically significant stenosis of the left extracranial carotid arteries.
--- NOTE | 2017-05-06 13:47 | CP.PCM.PN ---
Subjective - Date & Time of Evaluation Date of Evaluation: 05/06/17 Time of Evaluation: 13:45 - Subjective Subjective: CHIEF COMPLAINTS TODAY : S. ANJUM PERSISTS , TSH NORMAL HEADACHE ROS. HEENT : N. Resp : No cough, wheezing ,pleuritic CP ,or hemoptysis Cardio : No anginal CP, PND, orthopnea, palpitation GI : No abd.pain, n/v ,diarrhea or GI bleeding . 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 Musculoskel : No joint swelling , Derm : No rash Psych : Normal affect. Ext : No swelling ,calf pain PE. Pt. is alert awake in no distress. V.S As noted in the chart Head ,ear nose,throat and eyes : Normal. Neck : Supple with normal carotids. Lungs: Clear air entry. Heart : S1 & S2 normal with S4. No murmur. Abd : Soft non tender with normal bowel sounds. Neuro : Moves all ext. with no localized deficit. Ext : No edema with intact pulses.Non tender calves Derm : No rashes or decubitus ulcer. LABS/RADIOLOGY: CT HEAD /MRI SHOWS LEFT SPHENOID SINUSITIS , ECHO N ASSESSMENT/PLAN : ID EVAL FOR SINUSITIS SO FAR NEURO/CARDIO PRELIMINARY W/U IS NEG Objective - Vital Signs/Intake and Output Vital Signs (last 24 hours): Temp Pulse Resp BP Pulse Ox 97.7 F 55 L 20 188/83 H 95 05/06/17 08:00 05/06/17 08:00 05/06/17 08:00 05/06/17 08:00 05/06/17 08:00 - Medications Medications: Current Medications Amlodipine Besylate (Norvasc) 10 mg PO DAILY [facility] Last Admin: 05/06/17 09:16 Dose: 10 mg Aspirin (Aspirin Chewable) 81 mg PO DAILY [facility] Last Admin: 05/06/17 09:14 Dose: 81 mg Enoxaparin Sodium (Lovenox) 40 mg SC DAILY [facility] Last Admin: 05/06/17 09:15 Dose: 40 mg Gabapentin (Neurontin) 400 mg PO BID [facility] Last Admin: 05/06/17 09:15 Dose: 400 mg Home Med (Linaclotide [Linzess]) 72 mcg PO DAILY [facility] Ibuprofen (Motrin Tab) 600 mg PO Q6 PRN PRN Reason: Headache Last Admin: 10/09/17 17:09 Dose: 600 mg Lactulose (Enulose) 10 gm PO DAILY PRN PRN Reason: Constipation Last Admin: 05/05/17 10:28 Dose: 10 gm Lorazepam (Ativan) 2 mg PO DAILY [facility] Last Admin: 05/06/17 09:15 Dose: 2 mg Pantoprazole Sodium (Protonix Ec Tab) 40 mg PO DAILY [facility] Last Admin: 05/06/17 09:16 Dose: 40 mg Pneumococcal Polyvalent Vaccine (Pneumovax 23 Vaccine) 0.5 ml IM .ONCE ONE Stop: 05/07/17 10:01 Rosuvastatin Calcium (Crestor) 5 mg PO HS [facility] Last Admin: 05/05/17 21:34 Dose: 5 mg Sertraline HCl (Zoloft) 50 mg PO DAILY [facility] Last Admin: 05/06/17 09:16 Dose: 50 mg Trazodone HCl (Desyrel) 100 mg PO HS [facility] Last Admin: 05/05/17 21:34 Dose: 100 mg - Labs Labs: 05/04/17 08:45 05/06/17 08:50 PT 11.6 SECONDS (9.7-12.2) 05/04/17 08:45 INR 1.0 05/04/17 08:45 APTT 28 SECONDS (21-34) 05/04/17 08:45
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
[2017-05-06] MEDS: Clindamycin 300 MG in Sodium Chloride 0.9% 50 ML IVPB SCH (23:18)
[2017-05-07] MEDS: Clindamycin 300 MG in Sodium Chloride 0.9% 50 ML IVPB SCH ×3 (06:17→22:27)
[2017-05-07] MEDS ORDERED: Pneumococcal 23-Valent Vaccine IM ONE (10:00)
[2017-05-07] MEDS: Pantoprazole 40 mg EC Tab PO SCH (10:44)
[2017-05-07] MEDS: Enoxaparin 40 mg Syringe SC SCH (10:45)
--- NOTE | 2017-05-07 12:10 | MRI ---
PROCEDURE: MR Venography of the Brain HISTORY: cavernous sinus thrombosis COMPARISON: None available. TECHNIQUE: 2D time of flight venography of the brain was performed. Rotating MIP images of the intracranial veins were generated. FINDINGS: Dural sinuses: Superior Sagittal Sinus: There is normal flow related signal in the superior sagittal sinus. Inferior Sagittal Sinus:There is normal flow related signal in the superior sagittal sinus. Transverse Sinuses: There is also a short-segment narrowing in the proximal right transverse sinus. There is normal flow related signal in the left transverse sinus. Sigmoid Sinuses:There is a large filling defect in the right sigmoid sinus at the sigmoid transverse confluence. There is also an apparent filling defect at the left sigmoid transverse confluence. Deep Veins Internal Cerebral Veins: Patent. Vein of Vitaliy: Patent. Straight Sinus: Patent. IMPRESSION: 1. Large thrombus in the right sigmoid sinus and the sigmoid transverse confluence. 2. Short segment narrowing in the proximal right transverse sinus could be artifactual or related to thrombosis. 3. Suspect small thrombus in the left sigmoid sinus at sigmoid transverse confluence.
--- NOTE | 2017-05-07 13:19 | CP.PCM.PN ---
<Maryuri Dumas N - Last Filed: 05/07/17 13:17> Subjective - Date & Time of Evaluation Date of Evaluation: 05/07/17 Time of Evaluation: 13:17 - Subjective Subjective: CHIEF COMPLAINTS TODAY : S. ANJUM PERSISTS , TSH NORMAL HEADACHE ROS. HEENT : N. Resp : No cough, wheezing ,pleuritic CP ,or hemoptysis Cardio : No anginal CP, PND, orthopnea, palpitation GI : No abd.pain, n/v ,diarrhea or GI bleeding . 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 Musculoskel : No joint swelling , Derm : No rash Psych : Normal affect. Ext : No swelling ,calf pain PE. Pt. is alert awake in no distress. V.S As noted in the chart Head ,ear nose,throat and eyes : Normal. Neck : Supple with normal carotids. Lungs: Clear air entry. Heart : S1 & S2 normal with S4. No murmur. Abd : Soft non tender with normal bowel sounds. Neuro : Moves all ext. with no localized deficit. Ext : No edema with intact pulses.Non tender calves Derm : No rashes or decubitus ulcer. LABS/RADIOLOGY: MRA SHOWS LARGE THROMBUS IN THE SIGMOID SINUS EXTENDING TO TRANSVERSE SINUS ASSESSMENT/PLAN : PO ANTICOAGULATION HEM EVAL FOR HYPERCOAGUABLE STATE Objective - Vital Signs/Intake and Output Vital Signs (last 24 hours): Temp Pulse Resp BP Pulse Ox 98.2 F 53 L 20 137/75 95 05/07/17 07:39 05/07/17 08:00 05/07/17 07:39 05/07/17 07:39 05/07/17 07:39 - Medications Medications: Current Medications Acetaminophen (Tylenol 325mg Tab) 650 mg PO Q6 PRN PRN Reason: Headache Last Admin: 05/07/17 05:20 Dose: 650 mg Amlodipine Besylate (Norvasc) 10 mg PO DAILY [facility] Last Admin: 05/07/17 10:44 Dose: 10 mg Aspirin (Aspirin Chewable) 81 mg PO DAILY [facility] Last Admin: 05/07/17 10:44 Dose: 81 mg Enoxaparin Sodium (Lovenox) 40 mg SC DAILY [facility] Last Admin: 05/07/17 10:45 Dose: 40 mg Gabapentin (Neurontin) 400 mg PO BID [facility] Last Admin: 05/07/17 10:44 Dose: 400 mg Home Med (Linaclotide [Linzess]) 72 mcg PO DAILY [facility] Doxycycline Hyclate 100 mg/ (Sodium Chloride) 100 mls @ 100 mls/hr IVPB Q12H [facility] Last Admin: 05/07/17 10:45 Dose: 100 mls/hr Clindamycin Phosphate 300 mg/ (Sodium Chloride) 52 mls @ 100 mls/hr IVPB Q8H [facility] Last Admin: 05/07/17 06:17 Dose: 100 mls/hr Ibuprofen (Motrin Tab) 600 mg PO Q6 PRN PRN Reason: Headache Last Admin: 05/07/17 11:45 Dose: 600 mg Lactulose (Enulose) 10 gm PO DAILY PRN PRN Reason: Constipation Last Admin: 05/05/17 10:28 Dose: 10 gm Lorazepam (Ativan) 2 mg PO DAILY [facility] Last Admin: 05/07/17 10:44 Dose: 2 mg Pantoprazole Sodium (Protonix Ec Tab) 40 mg PO DAILY [facility] Last Admin: 05/07/17 10:44 Dose: 40 mg Rosuvastatin Calcium (Crestor) 5 mg PO HS [facility] Last Admin: 05/06/17 21:23 Dose: 5 mg Sertraline HCl (Zoloft) 50 mg PO DAILY [facility] Last Admin: 05/07/17 10:44 Dose: 50 mg Trazodone HCl (Desyrel) 100 mg PO [facility] Last Admin: 05/06/17 21:23 Dose: 100 mg - Labs Labs: 05/04/17 08:45 05/06/17 08:50 PT 11.6 SECONDS (9.7-12.2) 05/04/17 08:45 INR 1.0 05/04/17 08:45 APTT 28 SECONDS (21-34) 05/04/17 08:45 <Cheryle Allen - Last Filed: 05/08/17 00:09> Objective - Vital Signs/Intake and Output Vital Signs (last 24 hours): Temp Pulse Resp BP Pulse Ox 98 F 59 L 18 123/74 95 05/07/17 23:14 05/07/17 23:14 05/07/17 23:14 05/07/17 23:14 05/07/17 23:14 Intake and Output: 05/07/17 05/08/17 18:59 06:59 Intake Total 650 Balance 650 - Medications Medications: Current Medications Acetaminophen (Tylenol 325mg Tab) 650 mg PO Q6 PRN PRN Reason: Headache Last Admin: 05/07/17 05:20 Dose: 650 mg Amlodipine Besylate (Norvasc) 10 mg PO DAILY [facility] Last Admin: 05/07/17 10:44 Dose: 10 mg Aspirin (Aspirin Chewable) 81 mg PO DAILY [facility] Last Admin: 05/07/17 10:44 Dose: 81 mg Enoxaparin Sodium (Lovenox) 70 mg SC Q12 [facility] Last Admin: 05/07/17 22:27 Dose: 70 mg Gabapentin (Neurontin) 400 mg PO BID [facility] Last Admin: 05/07/17 17:47 Dose: 400 mg Home Med (Linaclotide [Linzess]) 72 mcg PO DAILY [facility] Doxycycline Hyclate 100 mg/ (Sodium Chloride) 100 mls @ 100 mls/hr IVPB Q12H [facility] Last Admin: 05/07/17 21:31 Dose: 100 mls/hr Clindamycin Phosphate 300 mg/ (Sodium Chloride) 52 mls @ 100 mls/hr IVPB Q8H [facility] Last Admin: 05/07/17 22:27 Dose: 100 mls/hr Ibuprofen (Motrin Tab) 600 mg PO Q6 PRN PRN Reason: Headache Last Admin: 05/07/17 17:47 Dose: 600 mg Lactulose (Enulose) 10 gm PO DAILY PRN PRN Reason: Constipation Last Admin: 05/05/17 10:28 Dose: 10 gm Lorazepam (Ativan) 2 mg PO DAILY [facility] Last Admin: 05/07/17 10:44 Dose: 2 mg Pantoprazole Sodium (Protonix Ec Tab) 40 mg PO DAILY [facility] Last Admin: 05/07/17 10:44 Dose: 40 mg Rosuvastatin Calcium (Crestor) 5 mg PO HS [facility] Last Admin: 05/07/17 21:31 Dose: 5 mg Sertraline HCl (Zoloft) 50 mg PO DAILY [facility] Last Admin: 05/07/17 10:44 Dose: 50 mg Trazodone HCl (Desyrel) 100 mg PO HS [facility] Last Admin: 05/07/17 21:31 Dose: 100 mg - Labs Labs: 05/04/17 08:45 05/06/17 08:50 PT 11.6 SECONDS (9.7-12.2) 10/08/17 08:45 INR 1.0 05/04/17 08:45 APTT 28 SECONDS (21-34) 05/04/17 08:45 Assessment and Plan (1) Headache Status: Acute (2) Acute recurrent sphenoidal sinusitis Status: Acute (3) Syncope and collapse Status: Acute
--- NOTE | 2017-05-07 18:06 | CP.PCM.PN ---
Subjective - Date & Time of Evaluation Date of Evaluation: 05/07/17 Time of Evaluation: 18:05 - Subjective Subjective: CHIEF COMPLAINTS TODAY C/O HEADACHE. MRA- HEAD NOTED-large thrombus in right sigmoid sinus and transverse sinus. small thrombus suspected left sigmoid sinus. See full report. ROS. HEENT : N. Resp : No cough, wheezing ,pleuritic CP ,or hemoptysis Cardio : No anginal CP, PND, orthopnea, palpitation GI : No abd.pain, n/v ,diarrhea or GI bleeding . 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 Musculoskel : No joint swelling , Derm : No rash Psych : Normal affect. Ext : No swelling ,calf pain PE. Pt. is alert awake in no distress. V.S As noted in the chart Head ,ear nose,throat and eyes : Normal. Neck : Supple with normal carotids. Lungs: Clear air entry. Heart : S1 & S2 normal with S4. No murmur. Abd : Soft non tender with normal bowel sounds. Neuro : Moves all ext. with no localized deficit. Ext : No edema with intact pulses.Non tender calves Derm : No rashes or decubitus ulcer. LABS/RADIOLOGY: MRA SHOWS LARGE THROMBUS IN THE SIGMOID SINUS EXTENDING TO TRANSVERSE SINUS Objective - Vital Signs/Intake and Output Vital Signs (last 24 hours): Temp Pulse Resp BP Pulse Ox 97.3 F L 66 20 129/69 96 05/07/17 15:30 05/07/17 15:30 05/07/17 15:30 05/07/17 15:30 05/07/17 15:30 Intake and Output: 05/07/17 05/07/17 06:59 18:59 Intake Total 650 Balance 650 - Medications Medications: Current Medications Acetaminophen (Tylenol 325mg Tab) 650 mg PO Q6 PRN PRN Reason: Headache Last Admin: 05/07/17 05:20 Dose: 650 mg Amlodipine Besylate (Norvasc) 10 mg PO DAILY [facility] Last Admin: 05/07/17 10:44 Dose: 10 mg Aspirin (Aspirin Chewable) 81 mg PO DAILY [facility] Last Admin: 05/07/17 10:44 Dose: 81 mg Enoxaparin Sodium (Lovenox) 40 mg SC DAILY [facility] Last Admin: 05/07/17 10:45 Dose: 40 mg Gabapentin (Neurontin) 400 mg PO BID [facility] Last Admin: 05/07/17 17:47 Dose: 400 mg Home Med (Linaclotide [Linzess]) 72 mcg PO DAILY [facility] Doxycycline Hyclate 100 mg/ (Sodium Chloride) 100 mls @ 100 mls/hr IVPB Q12H [facility] Last Admin: 05/07/17 10:45 Dose: 100 mls/hr Clindamycin Phosphate 300 mg/ (Sodium Chloride) 52 mls @ 100 mls/hr IVPB Q8H [facility] Last Admin: 05/07/17 14:41 Dose: 100 mls/hr Ibuprofen (Motrin Tab) 600 mg PO Q6 PRN PRN Reason: Headache Last Admin: 05/07/17 17:47 Dose: 600 mg Lactulose (Enulose) 10 gm PO DAILY PRN PRN Reason: Constipation Last Admin: 05/05/17 10:28 Dose: 10 gm Lorazepam (Ativan) 2 mg PO DAILY [facility] Last Admin: 05/07/17 10:44 Dose: 2 mg Pantoprazole Sodium (Protonix Ec Tab) 40 mg PO DAILY [facility] Last Admin: 05/07/17 10:44 Dose: 40 mg Rosuvastatin Calcium (Crestor) 5 mg PO HS [facility] Last Admin: 05/06/17 21:23 Dose: 5 mg Sertraline HCl (Zoloft) 50 mg PO DAILY [facility] Last Admin: 05/07/17 10:44 Dose: 50 mg Trazodone HCl (Desyrel) 100 mg PO HS [facility] Last Admin: 05/06/17 21:23 Dose: 100 mg - Labs Labs: 05/04/17 08:45 05/06/17 08:50 PT 11.6 SECONDS (9.7-12.2) 05/04/17 08:45 INR 1.0 05/04/17 08:45 APTT 28 SECONDS (21-34) 05/04/17 08:45 Assessment and Plan (1) Headache Status: Acute (2) Acute recurrent sphenoidal sinusitis Status: Acute (3) Syncope and collapse Status: Acute - Assessment and Plan (Free Text) Plan: on iv VIBRAMYCIN 100 MG EVERY 12 HOURLY.05/06/17 on iv CLEOCIN 300 MG EVERY 8 HOURLY FOR [facility] COVERAGE.05/06/17. hematology evaluation for further workup Anticoagulation as per PMD. CASE DISCUSSED WITH PMD.
[2017-05-07] MEDS: Enoxaparin 80 mg Syringe SC SCH (22:27)
[2017-05-08] MEDS: Clindamycin 300 MG in Sodium Chloride 0.9% 50 ML IVPB SCH ×3 (05:06→21:40)
[2017-05-08 06:56] VITALS: RESP 20
[2017-05-08] MEDS: Pantoprazole 40 mg EC Tab PO SCH (10:58)
[2017-05-08] MEDS: Enoxaparin 80 mg Syringe SC SCH ×2 (11:00→21:42)
--- NOTE | 2017-05-08 11:59 | EEG ---
DATE: 05/05/2017 This is a 16-channel electroencephalogram of awake and drowsy adult. During the study, photic stimulation was performed. Hyperventilation was not performed. The resting electroencephalogram consists of 20-30 low voltage 5 to 6 Hz theta activities noted. Theta activities also superimposed with high and low amplitude fast theta activities noted in bilateral cortical leads. Some movement artifact contaminated with the background rhythm. The photic stimulation did not evoke driving response noted at 2 to 20 Hz. IMPRESSION: This is abnormal electroencephalogram because of persistent slowing throughout the record suggestive of bilateral cerebral dysfunction. This is probably secondary to metabolic, vascular or degenerative process. The fast beta activity is probably secondary to the thread effect. Please correlate the findings with the neurological and the radiological studies. Randy George MD
[2017-05-08 13:08] LABS: FOLATE 6.1 ng/mL
--- NOTE | 2017-05-08 14:03 | CP.PCM.PN ---
Subjective - Date & Time of Evaluation Date of Evaluation: 05/08/17 Time of Evaluation: 14:03 - Subjective Subjective: CHIEF COMPLAINTS TODAY : S. ANJUM PERSISTS , TSH NORMAL HEADACHE ROS. HEENT : N. Resp : No cough, wheezing ,pleuritic CP ,or hemoptysis Cardio : No anginal CP, PND, orthopnea, palpitation GI : No abd.pain, n/v ,diarrhea or GI bleeding . 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 Musculoskel : No joint swelling , Derm : No rash Psych : Normal affect. Ext : No swelling ,calf pain PE. Pt. is alert awake in no distress. V.S As noted in the chart Head ,ear nose,throat and eyes : Normal. Neck : Supple with normal carotids. Lungs: Clear air entry. Heart : S1 & S2 normal with S4. No murmur. Abd : Soft non tender with normal bowel sounds. Neuro : Moves all ext. with no localized deficit. Ext : No edema with intact pulses.Non tender calves Derm : No rashes or decubitus ulcer. LABS/RADIOLOGY: MRA SHOWS LARGE THROMBUS IN THE SIGMOID SINUS EXTENDING TO TRANSVERSE SINUS ASSESSMENT/PLAN : on levonex sc Objective - Vital Signs/Intake and Output Vital Signs (last 24 hours): Temp Pulse Resp BP Pulse Ox 97.9 F 61 20 153/87 H 100 05/08/17 08:00 05/08/17 08:00 05/08/17 08:00 05/08/17 08:00 05/08/17 08:00 - Medications Medications: Current Medications Acetaminophen (Tylenol 325mg Tab) 650 mg PO Q6 PRN PRN Reason: Headache Last Admin: 05/08/17 07:20 Dose: 650 mg Amlodipine Besylate (Norvasc) 10 mg PO DAILY [facility] Last Admin: 05/08/17 10:59 Dose: 10 mg Aspirin (Aspirin Chewable) 81 mg PO DAILY [facility] Last Admin: 05/08/17 10:58 Dose: 81 mg Enoxaparin Sodium (Lovenox) 70 mg SC Q12 [facility] Last Admin: 05/08/17 11:00 Dose: 70 mg Gabapentin (Neurontin) 400 mg PO BID [facility] Last Admin: 05/08/17 11:00 Dose: 400 mg Home Med (Linaclotide [Linzess]) 72 mcg PO DAILY [facility] Doxycycline Hyclate 100 mg/ (Sodium Chloride) 100 mls @ 100 mls/hr IVPB Q12H [facility] Last Admin: 05/08/17 10:59 Dose: 100 mls/hr Clindamycin Phosphate 300 mg/ (Sodium Chloride) 52 mls @ 100 mls/hr IVPB Q8H [facility] Last Admin: 05/08/17 05:06 Dose: 100 mls/hr Ibuprofen (Motrin Tab) 600 mg PO Q6 PRN PRN Reason: Headache Last Admin: 05/08/17 04:33 Dose: 600 mg Lactulose (Enulose) 10 gm PO DAILY PRN PRN Reason: Constipation Last Admin: 05/08/17 11:06 Dose: 10 gm Lorazepam (Ativan) 2 mg PO DAILY [facility] Last Admin: 05/08/17 10:59 Dose: 2 mg Pantoprazole Sodium (Protonix Ec Tab) 40 mg PO DAILY [facility] Last Admin: 05/08/17 10:58 Dose: 40 mg Rosuvastatin Calcium (Crestor) 5 mg PO HS [facility] Last Admin: 05/07/17 21:31 Dose: 5 mg Sertraline HCl (Zoloft) 50 mg PO DAILY [facility] Last Admin: 05/08/17 10:59 Dose: 50 mg Trazodone HCl (Desyrel) 100 mg PO HS [facility] Last Admin: 05/07/17 21:31 Dose: 100 mg - Labs Labs: 05/04/17 08:45 05/06/17 08:50 PT 11.2 SECONDS (9.7-12.2) 05/08/17 11:35 INR 1.0 05/08/17 11:35 APTT 28 SECONDS (21-34) 05/04/17 08:45
--- NOTE | 2017-05-08 18:30 | CP.PCM.CON ---
History of Present Illness - History of Present Illness History of Present Illness: 67 year old female with a history of schizophrenia, HTN, HL, admitted with dizziness s/p fall, found to have bilateral venous sinus thrombosis. The patient notes to waking up and feeling extremely dizzy. She attempted to go to the bathroom but fell due to the dizziness. She does admit to having a cold most recently with some nasal sinus congestion and discomfort. She denies abnormal bleeding and bruising. Past medical history: HTN, HL, schizophrenia Past surgical history: None Family history: Denies hematologic and oncologic problems Social history: Denies tobacco, alcohol, and illicit drug use. Allergies: PCN Review of systems: All remaining review of systems including HEENT, cardiovascular, respiratory, gastrointestinal, genitourinary, musculoskeletal, dermatologic, neurologic, and psychiatric are negative unless mentioned in the HPI. Past Patient History - Infectious Disease Hx of Infectious Diseases: None - Past Medical History & Family History Past Medical History?: Yes - Past Social History Smoking Status: Former Smoker - CARDIAC Hx Cardiac Disorders: Yes Hx Hypercholesterolemia: Yes Hx Hypertension: Yes - PULMONARY Hx Respiratory Disorders: Yes Hx Asthma: Yes - NEUROLOGICAL Hx Neurological Disorder: Yes Hx Dizziness: Yes - HEENT Hx HEENT Problems: No - RENAL Hx Chronic Kidney Disease: No - ENDOCRINE/METABOLIC Hx Diabetes Mellitus Type 2: (denies 04/08/17) - HEMATOLOGICAL/ONCOLOGICAL Hx Blood Disorders: No - INTEGUMENTARY Hx Dermatological Problems: No - MUSCULOSKELETAL/RHEUMATOLOGICAL Hx Musculoskeletal Disorders: Yes Hx Back Pain: Yes Hx Falls: Yes (IN BATHTUB 6 MONTHS AGO; GOING FOR PT.) - GASTROINTESTINAL Hx Gastrointestinal Disorders: No - GENITOURINARY/GYNECOLOGICAL Hx Genitourinary Disorders: No - PSYCHIATRIC Hx Psychophysiologic Disorder: Yes Hx Anxiety: Yes Hx Bipolar Disorder: Yes Hx Depression: Yes Hx Schizophrenia: Yes Hx Substance Use: No - SURGICAL HISTORY Hx Surgeries: Yes Hx Breast Biopsy: Yes Other/Comment: "right breast lumpectomy about 50 years ago" - ANESTHESIA Hx Anesthesia: Yes Hx Anesthesia Reactions: No Hx Malignant Hyperthermia: No Has any member of the family had a problem w/ anesthesia?: No Meds Allergies/Adverse Reactions: Allergies Allergy/AdvReac Type Severity Reaction Status Date / Time Penicillins Allergy Intermediate RASH Verified 05/04/17 08:06 - Medications Medications: Current Medications Acetaminophen (Tylenol 325mg Tab) 650 mg PO Q6 PRN PRN Reason: Headache Last Admin: 05/08/17 07:20 Dose: 650 mg Amlodipine Besylate (Norvasc) 10 mg PO DAILY [facility] Last Admin: 05/08/17 10:59 Dose: 10 mg Aspirin (Aspirin Chewable) 81 mg PO DAILY [facility] Last Admin: 05/08/17 10:58 Dose: 81 mg Enoxaparin Sodium (Lovenox) 70 mg SC Q12 [facility] Last Admin: 05/08/17 11:00 Dose: 70 mg Gabapentin (Neurontin) 400 mg PO BID [facility] Last Admin: 05/08/17 11:00 Dose: 400 mg Home Med (Linaclotide [Linzess]) 72 mcg PO DAILY [facility] Doxycycline Hyclate 100 mg/ (Sodium Chloride) 100 mls @ 100 mls/hr IVPB Q12H [facility] Last Admin: 05/08/17 10:59 Dose: 100 mls/hr Clindamycin Phosphate 300 mg/ (Sodium Chloride) 52 mls @ 100 mls/hr IVPB Q8H [facility] Last Admin: 05/08/17 14:15 Dose: 100 mls/hr Ibuprofen (Motrin Tab) 600 mg PO Q6 PRN PRN Reason: Headache Last Admin: 05/08/17 04:33 Dose: 600 mg Lactulose (Enulose) 10 gm PO DAILY PRN PRN Reason: Constipation Last Admin: 05/08/17 11:06 Dose: 10 gm Lorazepam (Ativan) 2 mg PO DAILY [facility] Last Admin: 05/08/17 10:59 Dose: 2 mg Pantoprazole Sodium (Protonix Ec Tab) 40 mg PO DAILY [facility] Last Admin: 05/08/17 10:58 Dose: 40 mg Rosuvastatin Calcium (Crestor) 5 mg PO [facility] Last Admin: 05/07/17 21:31 Dose: 5 mg Sertraline HCl (Zoloft) 50 mg PO DAILY [facility] Last Admin: 05/08/17 10:59 Dose: 50 mg Trazodone HCl (Desyrel) 100 mg PO [facility] Last Admin: 05/07/17 21:31 Dose: 100 mg Physical Exam - Head Exam Head Exam: ATRAUMATIC - Eye Exam Eye Exam: Normal appearance - ENT Exam ENT Exam: Mucous Membranes Dry - Respiratory Exam Respiratory Exam: NORMAL BREATHING PATTERN - Cardiovascular Exam Cardiovascular Exam: +S1, +S2 - GI/Abdominal Exam GI & Abdominal Exam: Normal Bowel Sounds - Extremities Exam Extremities exam: Positive for: normal inspection - Neurological Exam Neurological exam: Oriented x3 - Psychiatric Exam Psychiatric exam: Normal Affect, Normal Mood - Skin Skin Exam: Warm Results - Vital Signs Recent Vital Signs: Last Vital Signs Temp 98.0 F 05/08/17 15:00 Pulse 64 05/08/17 15:00 Resp 20 05/08/17 15:00 BP 124/79 05/08/17 15:00 Pulse Ox 98 05/08/17 15:00 - Labs Result Diagrams: 05/04/17 08:45 05/06/17 08:50 Labs: Laboratory Results - last 24 hr 05/08/17 05/08/17 05/08/17 11:35 11:35 11:35 Retic Count 2.0 H PT 11.2 INR 1.0 Ferritin 45.1 Vitamin B12 683 Folate 6.1 Assessment & Plan (1) Cerebral venous sinus thrombosis, acute Assessment and Plan: may be provoked from infectious sinusitis started the patient on therapeutic lovenox pt will need minimum of 3 months of therapeutic anticoagulation thrombophilia w/u sent Status: Acute (2) Anemia Assessment and Plan: mild work up sent thank you for this interesting consult. Status: Acute
--- NOTE | 2017-05-08 23:09 | CP.PCM.PN ---
Subjective - Date & Time of Evaluation Date of Evaluation: 05/08/17 Time of Evaluation: 23:09 - Subjective Subjective: afebrile, Clinically same c/o headache 12/04 Tolerating IV antibiotics Placed on Lovenox as per hematologists w/u for thrombophilia going on. Objective - Vital Signs/Intake and Output Vital Signs (last 24 hours): Temp Pulse Resp BP Pulse Ox 98.0 F 64 20 124/79 98 05/08/17 15:00 05/08/17 15:00 05/08/17 15:00 05/08/17 15:00 05/08/17 15:00 Intake and Output: 05/08/17 05/09/17 18:59 06:59 Intake Total 630 400 Balance 630 400 - Medications Medications: Current Medications Acetaminophen (Tylenol 325mg Tab) 650 mg PO Q6 PRN PRN Reason: Headache Last Admin: 05/08/17 21:37 Dose: 650 mg Amlodipine Besylate (Norvasc) 10 mg PO DAILY [facility] Last Admin: 05/08/17 10:59 Dose: 10 mg Aspirin (Aspirin Chewable) 81 mg PO DAILY [facility] Last Admin: 05/08/17 10:58 Dose: 81 mg Enoxaparin Sodium (Lovenox) 70 mg SC Q12 [facility] Last Admin: 05/08/17 21:42 Dose: 70 mg Gabapentin (Neurontin) 400 mg PO BID [facility] Last Admin: 05/08/17 18:38 Dose: 400 mg Home Med (Linaclotide [Linzess]) 72 mcg PO DAILY [facility] Doxycycline Hyclate 100 mg/ (Sodium Chloride) 100 mls @ 100 mls/hr IVPB Q12H [facility] Last Admin: 05/08/17 22:38 Dose: 100 mls/hr Clindamycin Phosphate 300 mg/ (Sodium Chloride) 52 mls @ 100 mls/hr IVPB Q8H [facility] Last Admin: 05/08/17 21:40 Dose: 100 mls/hr Ibuprofen (Motrin Tab) 600 mg PO Q6 PRN PRN Reason: Headache Last Admin: 05/08/17 18:35 Dose: 600 mg Lactulose (Enulose) 10 gm PO DAILY PRN PRN Reason: Constipation Last Admin: 05/08/17 11:06 Dose: 10 gm Lorazepam (Ativan) 2 mg PO DAILY [facility] Last Admin: 05/08/17 10:59 Dose: 2 mg Pantoprazole Sodium (Protonix Ec Tab) 40 mg PO DAILY [facility] Last Admin: 05/08/17 10:58 Dose: 40 mg Rosuvastatin Calcium (Crestor) 5 mg PO HS [facility] Last Admin: 05/08/17 21:39 Dose: 5 mg Sertraline HCl (Zoloft) 50 mg PO DAILY [facility] Last Admin: 05/08/17 10:59 Dose: 50 mg Trazodone HCl (Desyrel) 100 mg PO HS [facility] Last Admin: 05/08/17 22:27 Dose: 100 mg - Labs Labs: 05/04/17 08:45 05/06/17 08:50 PT 11.2 SECONDS (9.7-12.2) 05/08/17 11:35 INR 1.0 05/08/17 11:35 APTT 28 SECONDS (21-34) 05/04/17 08:45 - Constitutional Appears: No Acute Distress - Head Exam Head Exam: NORMAL INSPECTION - Eye Exam Eye Exam: EOMI, PERRL - ENT Exam ENT Exam: Normal Oropharynx - Neck Exam Neck Exam: Normal Inspection. absent: Meningismus - Respiratory Exam Respiratory Exam: Clear to Ausculation Bilateral - Cardiovascular Exam Cardiovascular Exam: REGULAR RHYTHM, +S1, +S2 - GI/Abdominal Exam GI & Abdominal Exam: Soft, Normal Bowel Sounds. absent: Organomegaly - Extremities Exam Extremities Exam: absent: Calf Tenderness, Pedal Edema - Neurological Exam Neurological Exam: Alert, Awake, CN II-XII Intact, Oriented x3 - Psychiatric Exam Psychiatric exam: Normal Mood - Skin Skin Exam: Normal Color, Warm Assessment and Plan (1) Headache Status: Acute (2) Acute recurrent sphenoidal sinusitis Status: Acute (3) Cerebral venous sinus thrombosis, acute Status: Acute (4) Syncope and collapse Status: Acute - Assessment and Plan (Free Text) Plan: on iv VIBRAMYCIN 100 MG EVERY 12 HOURLY.05/06/17 on iv CLEOCIN 300 MG EVERY 8 HOURLY FOR [facility] [employer].05/06/17. hematology workup in progress Anticoagulation as per medical imaging tech CASE DISCUSSED WITH PMD.
[2017-05-09 04:20] LABS: HEMATOCRIT 37.3 % (35.0-45.0); HEMOGLOBIN 12.2 g/dL (11.7-15.5); RDW 14.6 % (11.0-15.0)
[2017-05-09] MEDS: Clindamycin 300 MG in Sodium Chloride 0.9% 50 ML IVPB SCH ×2 (05:34→13:43)
[2017-05-09] MEDS: Pantoprazole 40 mg EC Tab PO SCH (10:18)
[2017-05-09] MEDS: Enoxaparin 80 mg Syringe SC SCH (10:18)
--- NOTE | 2017-05-09 13:33 | CP.PCM.DIS ---
Provider - Provider Date of Admission: 05/06/17 16:37 Attending physician: Maryuri Dumas MD Time Spent in preparation of Discharge (in minutes): 30 Hospital Course - Lab Results Lab Results: Micro Results 05/06/17 22:00 Blood-Venous Blood Culture - Preliminary NO GROWTH AFTER 48 HOURS 05/06/17 22:35 Blood-Venous Blood Culture - Preliminary NO GROWTH AFTER 48 HOURS 05/06/17 21:00 Naris MRSA Culture (Admit) - Final MRSA NOT DETECTED 05/06/17 21:08 Throat Group A Strep Throat Culture - Final NO BETA STREP GROUP A ISOLATED. Most Recent Lab Values WBC 5.1 K/uL (4.8-10.8) 05/04/17 08:45 RBC 4.69 Mil/uL (3.80-5.20) 05/04/17 08:45 Hgb 11.9 g/dL (11.0-16.0) 05/04/17 08:45 Hct 35.6 % (34.0-47.0) 05/04/17 08:45 MCV 75.9 fL (81.0-99.0) L 05/04/17 08:45 MCH 25.5 pg (27.0-31.0) L 05/04/17 08:45 MCHC 33.6 g/dL (33.0-37.0) 05/04/17 08:45 RDW 14.7 % (11.5-14.5) H 05/04/17 08:45 Plt Count 210 K/uL (130-400) 05/04/17 08:45 MPV 7.8 fL (7.2-11.7) 05/04/17 08:45 Neut % (Auto) 51.8 % (50.0-75.0) 05/04/17 08:45 Lymph % (Auto) 39.6 % (20.0-40.0) 05/04/17 08:45 [place] % (Auto) 6.2 % (0.0-10.0) 05/04/17 08:45 Eos % (Auto) 0.7 % (0.0-4.0) 05/04/17 08:45 Baso % (Auto) 1.7 % (0.0-2.0) 05/04/17 08:45 Neut # 2.7 K/uL (1.8-7.0) 05/04/17 08:45 Lymph # 2.0 K/uL (1.0-4.3) 05/04/17 08:45 [place] # 0.3 K/uL (0.0-0.8) 05/04/17 08:45 Eos # 0.0 K/uL (0.0-0.7) 05/04/17 08:45 Baso # 0.1 K/uL (0.0-0.2) 05/04/17 08:45 ESR 2 mm/hr (0-20) 05/07/17 08:31 Retic Count 2.0 % (0.5-1.5) H 05/08/17 11:35 Hemoglobinopathy Red Blood Count 4.80 Mill/mcL (3.80-5.10) 05/08/17 11:35 Hemoglobinopathy Hct 37.3 % (35.0-45.0) 05/08/17 11:35 Hemoglobinopathy Hgb 12.2 g/dL (11.7-15.5) 05/08/17 11:35 Hemoglobinopathy MCV 77.8 fL (80.0-100.0) L 05/08/17 11:35 Hemoglobinopathy MCH 25.4 pg (27.0-33.0) L 05/08/17 11:35 Hemoglobinopathy RDW 14.6 % (11.0-15.0) 05/08/17 11:35 PT 11.6 SECONDS (9.7-12.2) 05/09/17 08:29 INR 1.0 05/09/17 08:29 APTT 28 SECONDS (21-34) 05/04/17 08:45 Sodium 136 mmol/L (132-148) 05/06/17 08:50 Potassium 4.0 mmol/L (3.6-5.2) 05/06/17 08:50 Chloride 100 mmol/L (98-107) 05/06/17 08:50 Carbon Dioxide 23 mmol/L (22-30) 05/06/17 08:50 Anion Gap 17 (10-20) 05/06/17 08:50 BUN 12 mg/dL (7-17) 05/06/17 08:50 Creatinine 0.6 mg/dL (0.7-1.2) L 05/06/17 08:50 Est GFR ( Amer) > 60 05/06/17 08:50 Est GFR (Non-Af Amer) > 60 05/06/17 08:50 Random Glucose 70 mg/dL (65-105) 05/06/17 08:50 Calcium 9.4 mg/dl (8.6-10.4) 05/06/17 08:50 Ferritin 45.1 ng/mL 05/08/17 11:35 Total Bilirubin 0.8 mg/dL (0.2-1.3) 05/06/17 08:50 AST 21 U/L (14-36) 05/06/17 08:50 ALT 29 U/L (9-52) 05/06/17 08:50 Alkaline Phosphatase 64 U/L (38-126) 05/06/17 08:50 Total Creatine Kinase 83 U/L (30-135) 05/05/17 00:37 CK-MB (Mass) 0.94 ng/mL (0.0-3.38) 05/05/17 00:37 Troponin I < 0.0120 ng/mL (0.00-0.120) 05/04/17 08:45 Troponin I, Quant < 0.0120 ng/mL (0.00-0.120) 05/05/17 00:37 C-React Prot High Sens 2.14 mg/L (1.00-3.00) 05/07/17 08:31 Total Protein 7.8 g/dL (6.3-8.3) 05/06/17 08:50 Albumin 4.4 g/dL (3.5-5.0) 05/06/17 08:50 Globulin 3.5 gm/dL (2.2-3.9) 05/06/17 08:50 Albumin/Globulin Ratio 1.3 (1.0-2.1) 05/06/17 08:50 Vitamin B12 683 pg/mL (239-931) 05/08/17 11:35 Folate 6.1 ng/mL 05/08/17 11:35 TSH 3rd Generation 0.51 mIU/L (0.46-4.68) 05/06/17 08:50 Urine Color Colorless (YELLOW) 05/04/17 08:46 Urine Clarity Clear (Clear) 05/04/17 08:46 Urine pH 5.0 (5.0-8.0) 05/04/17 08:46 Ur Specific [place] 1.001 (1.003-1.030) L 05/04/17 08:46 Urine Protein Negative mg/dL (NEGATIVE) 05/04/17 08:46 Urine Glucose (UA) Normal mg/dL (Normal) 05/04/17 08:46 Urine Ketones Negative mg/dL (NEGATIVE) 05/04/17 08:46 Urine Blood 1+ (NEGATIVE) H 10 08:46 Urine Nitrate Negative (NEGATIVE) 05/04/17 08:46 Urine Bilirubin Negative (NEGATIVE) 05/04/17 08:46 Urine Urobilinogen Normal mg/dL (0.2-1.0) 10 08:46 Ur Leukocyte Esterase Neg Joel/uL (Negative) 05/04/17 08:46 Urine WBC (Auto) < 1 /hpf (0-5) 05/04/17 08:46 Urine RBC (Auto) < 1 /hpf (0-3) 05/04/17 08:46 Ur Squamous Epith Cells 1 /hpf (0-5) 05/04/17 08:46 Urine Bacteria Rare (<OCC) 05/04/17 08:46 - Hospital Course Hospital Course: ADMITTED WITH H/O SYNCOPY PT GOT UP TO GO TO BATHROOM AND FELT WEAK AND ALMOST PASSED OUT THERE WAS NO WITNESSED SEIZURES THERE WAS ONLY S BRADYCARDIA IN THE ER W/U PAST HIST. HTN/PSYCH ISSUES /GI PROBLEMS cardiac w/u neg neuro w/u showed large clot in left sigmoid sinus ext. to trnasverse sinus ID /HEM CONSULTED PT WAS STARTED ON IV AB AND LOVENEX + XARELTO PT WILL F/U BLOOD TEST FOR THROMBOSIS Discharge Exam - Head Exam Head Exam: NORMAL INSPECTION Discharge Plan - Follow Up Plan Condition: FAIR Disposition: HOME/ ROUTINE
[2017-05-09 16:07] LABS: HEMOGLOBIN F <1.0 Percent (<2.0)
[2017-05-09] MEDS ORDERED: Pneumococcal 23-Valent Vaccine IM ONE (16:45)
--- NOTE | 2017-05-09 16:45 | CP.PCM.PN ---
Subjective - Date & Time of Evaluation Date of Evaluation: 05/09/17 Time of Evaluation: 16:45 - Subjective Subjective: Alert, awake, no sob or chest pains, no distress. Objective - Vital Signs/Intake and Output Vital Signs (last 24 hours): Temp Pulse Resp BP Pulse Ox 98.5 F 59 L 20 158/86 H 98 05/09/17 07:31 05/09/17 14:25 05/09/17 07:31 05/09/17 14:25 05/09/17 14:25 Intake and Output: 05/09/17 05/09/17 06:59 18:59 Intake Total 860 1250 Balance 860 1250 - Medications Medications: Current Medications Acetaminophen (Tylenol 325mg Tab) 650 mg PO Q6 PRN PRN Reason: Headache Last Admin: 05/09/17 10:18 Dose: 650 mg Amlodipine Besylate (Norvasc) 10 mg PO DAILY [facility] Last Admin: 05/09/17 10:17 Dose: 10 mg Aspirin (Aspirin Chewable) 81 mg PO DAILY [facility] Last Admin: 05/09/17 10:19 Dose: 81 mg Gabapentin (Neurontin) 400 mg PO BID [facility] Last Admin: 05/09/17 10:18 Dose: 400 mg Home Med (Linaclotide [Linzess]) 72 mcg PO DAILY [facility] Doxycycline Hyclate 100 mg/ (Sodium Chloride) 100 mls @ 100 mls/hr IVPB Q12H [facility] Last Admin: 05/09/17 10:19 Dose: 100 mls/hr Clindamycin Phosphate 300 mg/ (Sodium Chloride) 52 mls @ 100 mls/hr IVPB Q8H [facility] Last Admin: 05/09/17 13:43 Dose: 100 mls/hr Ibuprofen (Motrin Tab) 600 mg PO Q6 PRN PRN Reason: Headache Last Admin: 05/09/17 13:39 Dose: 600 mg Lactulose (Enulose) 10 gm PO DAILY PRN PRN Reason: Constipation Last Admin: 05/08/17 11:06 Dose: 10 gm Lorazepam (Ativan) 2 mg PO DAILY [facility] Last Admin: 05/09/17 10:18 Dose: 2 mg Pantoprazole Sodium (Protonix Ec Tab) 40 mg PO DAILY [facility] Last Admin: 05/09/17 10:18 Dose: 40 mg Rivaroxaban (Xarelto) 20 mg PO DAILY [facility] Last Admin: 05/09/17 11:00 Dose: Not Given Rosuvastatin Calcium (Crestor) 5 mg PO HS [facility] Last Admin: 05/08/17 21:39 Dose: 5 mg Sertraline HCl (Zoloft) 50 mg PO DAILY [facility] Last Admin: 05/09/17 10:17 Dose: 50 mg Trazodone HCl (Desyrel) 100 mg PO HS [facility] Last Admin: 05/08/17 22:27 Dose: 100 mg - Labs Labs: 05/04/17 08:45 05/06/17 08:50 PT 11.6 SECONDS (9.7-12.2) 05/09/17 08:29 INR 1.0 05/09/17 08:29 APTT 28 SECONDS (21-34) 05/04/17 08:45 Assessment and Plan - Assessment and Plan (Free Text) Assessment: Patient is seen and examined. Alert, responsive, denies sob or chest pains. D/w DR Dumas and DR Allen, plan to discharge home om xeralto 20mg daily and doxicycline 100mg po BID x 14 days. Advised to follow up with DR Dumas in 1 week.
[2017-05-09 17:14] VITALS: BP 137/74; PULSE 65; TEMP 97.7; O2SAT 96
[2017-05-11 03:52] LABS: B2 GLYCOPROTEIN I AB(IGA) <9 SAU (<=20); B2 GLYCOPROTEIN I AB(IGG) <9 SGU (<=20); B2 GLYCOPROTEIN I AB(IGM) <9 SMU (<=20)
[2017-05-11 04:17] LABS: CARDIOLIPIN AB (IGA) <11 APL (<=11)
[2017-05-11 04:59] LABS: PHOSPHATIDYLSERINE AB IGA <20 U/mL (<20); PHOSPHATIDYLSERINE AB IGM <25 U/mL (<25)
== END 2017-05-09 18:51 | disposition home or self-care (01) | DRG 152 ==
LOC: C.ER 08:03 → C.9E 11:34 → C.5S 15:47 → OBSVTOIN 05-06 16:37 → C.3T 05-08 06:31
PROVIDERS: ADMIT Internal Medicine Cardiovascular Disease; ATTEND Internal Medicine Cardiovascular Disease
DX: J01.31 Acute recurrent sphenoidal sinusitis (principal); G08 Intracranial and intraspinal phlebitis and thrombophlebitis; F20.9 Schizophrenia, unspecified; I10 Essential (primary) hypertension; R55 Syncope and collapse; R00.1 Bradycardia, unspecified; D64.9 Anemia, unspecified; W18.39XA Other fall on same level, initial encounter; F31.9 Bipolar disorder, unspecified; F41.9 Anxiety disorder, unspecified; J45.909 Unspecified asthma, uncomplicated; E78.00 Pure hypercholesterolemia, unspecified; Z87.891 Personal history of nicotine dependence

== ENCOUNTER 2017-06-23 07:42 | Emergency (ER) | payer MEDICARE, MEDICAID ==
[2017-06-23 07:42] VITALS: BMI 29.0
[2017-06-23] MEDS ORDERED: Sodium Chloride 0.9% 1,000 ML IV ONE (09:31)
--- NOTE | 2017-06-23 09:38 | C.PDOC ---
History Of Present Illness 67 yr old female presents to the ER with complaints of intermittent headache and dizziness, describes it as the room spinning around her for the past 2 days. Patient was recently seen and discharged from [facility] ER, diagnosed with multiple thrombosis by MRA. Patient was started on Xarelto and discharged home. Patient states she is compliant with the xarelto. Currently patient denies fever , facial droop, slurred speech, vision changes, chest pain, palpitations, SOB, nausea, vomiting, extremity weakness, sensory or vascular deficits. Time Seen by Provider: 06/23/17 08:07 Chief Complaint (Nursing): Headache History Per: Patient History/Exam Limitations: no limitations Onset/Duration Of Symptoms: Days (2) Current Symptoms Are (Timing): Still Present Past Medical History Reviewed: Historical Data, Nursing Documentation, Vital Signs Vital Signs: Last Vital Signs Temp 97.3 F L 06/23/17 07:47 Pulse 56 L 06/23/17 07:47 Resp 20 06/23/17 07:47 BP 152/87 H 06/23/17 07:47 Pulse Ox 96 06/23/17 10:48 - Medical History PMH: Anxiety, Asthma, Bipolar Disorder, Depression, HTN, Hypercholesterolemia, Schizophrenia Surgical History: Endoscopy Family History: States: No Known Family Hx - Social History Hx Alcohol Use: No Hx Substance Use: No - Immunization History Hx Tetanus Toxoid Vaccination: No Hx Influenza Vaccination: Yes (6 months ago) Hx Pneumococcal Vaccination: Yes (07/2015) Review Of Systems Except As Marked, All Systems Reviewed And Found Negative. Constitutional: Positive for: Other (No facial droop. No slurred speech.). Negative for: Fever Eyes: Negative for: Vision Change Cardiovascular: Negative for: Chest Pain, Palpitations Respiratory: Negative for: Shortness of Breath Gastrointestinal: Negative for: Nausea, Vomiting Neurological: Positive for: Headache, Dizziness (Room spining). Negative for: Weakness, Numbness Physical Exam - Physical Exam Appears: Non-toxic, In Acute Distress (Mild discomfort) Skin: Warm, Dry, No Rash Head: Atraumatic, Normacephalic Eye(s): bilateral: Normal Inspection, PERRL, EOMI Oral Mucosa: Moist Cardiovascular: Rhythm Regular, No Murmur Respiratory: Normal Breath Sounds, No Rales, No Rhonchi, No Stridor, No Wheezing Gastrointestinal/Abdominal: Normal Exam, Soft, No Tenderness, No Guarding, No Rebound Extremity: Normal ROM, No Swelling Neurological/Psych: Oriented x3, Normal Speech, Normal Motor, Normal Sensation ED Course And Treatment - Laboratory Results Result Diagrams: 06/23/17 10:12 06/23/17 10:12 O2 Sat by Pulse Oximetry: 96 (RA) Pulse Ox Interpretation: Normal Progress Note: PLAN: Labs, Meclizine PO, Tylenol PO, Ativan IVP & Sodium Chloride IV. Patientw as reassesed and the symptoms were unchanges. IV fluids and Ativan and labs were ordered. Will reasses patient once the lab results are back and patient will be dischagred home. Disposition Counseled Patient/Family Regarding: Studies Performed, Diagnosis, Need For Followup, Rx Given - Disposition Referrals: Maryuri Dumas MD [Staff Provider] - Disposition: HOME/ ROUTINE Disposition Time: 12:10 Condition: STABLE Additional Instructions: FOLLOW UP WITH DR DUMAS IN 1-2 DAYS CONTINUE XARELTO DAILY USE MEDICATION FOR DIZZINESS NEEDED RETURN TO EMERGENCY ROOM IF SYMPTOMS WORSEN SEGUIMIENTO CON EL DR. DUMAS EN 1-2 HAMPTON CONTINUAR XARELTO DIARIAMENTE USE MEDICAMENTO PARA MAREOS SEGN SEA NECESARIO REGRESE AL VICKIE DE EMERGENCIA SI LOS SNTOMAS EMPEORAN Prescriptions: Meclizine [Meclizine*] 25 mg PO Q6 #30 tab Instructions: Vertigo (ED) Forms: [employer] (Swedish) Print Language: RWANDAN - POA Present On Arrival: None - Clinical Impression Clinical Impression: Vertigo - Scribe Statement The provider has reviewed the documentation as recorded by the Scribe So Call Provider Attestation: All medical record entries made by the Scribe were at my direction and personally dictated by me. I have reviewed the chart and agree that the record accurately reflects my personal performance of the history, physical exam, medical decision making, and the department course for this patient. I have also personally directed, reviewed, and agree with the discharge instructions and disposition.
[2017-06-23 10:17] LABS: BASO % 0.7 % (0.0-2.0); EOS % 0.6 % (0.0-4.0); HEMATOCRIT 38.7 % (34.0-47.0); LYMPH # 1.6 K/uL (1.0-4.3); MEAN CELL VOLUME 76.3 fL (81.0-99.0); MEAN CORPUSCULAR HEMOGLOBIN 25.4 pg (27.0-31.0); MEAN CORPUSCULAR HGB CONC 33.3 g/dL (33.0-37.0); MEAN PLATELET VOLUME 8.3 fL (7.2-11.7); MONO # 0.2 K/uL (0.0-0.8); MONO % 6.5 % (0.0-10.0); NRBC % 0.1 % (0.0-2.0); RED CELL DISTRIBUTION WIDTH 14.5 % (11.5-14.5); WHITE BLOOD COUNT 3.5 K/uL (4.8-10.8)
[2017-06-23 10:31] LABS: INR 2.3
[2017-06-23 10:56] LABS: ALB/GLOB RATIO 1.6 (1.0-2.1); ALKALINE PHOSPHATASE 65 U/L (38-126); ALT/SGPT 36 U/L (9-52); AST/SGOT 29 U/L (14-36); BILIRUBIN,TOTAL 0.9 mg/dL (0.2-1.3); BLOOD UREA NITROGEN 9 mg/dL (7-17); CALCIUM 8.9 mg/dl (8.6-10.4); CARBON DIOXIDE 24 mmol/L (22-30); CHLORIDE 102 mmol/L (98-107); GFR AFRICAN-AMERICAN > 60; GLUCOSE,RANDOM 76 mg/dL (65-105); POTASSIUM 3.5 mmol/L (3.6-5.2); SODIUM 137 mmol/L (132-148)
[2017-06-23 12:30] VITALS: BP 156/82; PULSE 54; RESP 16; TEMP 97.8; O2SAT 100
== END 2017-06-23 12:35 | disposition home or self-care (01) ==
LOC: C.ER 07:42
DX: R42 Dizziness and giddiness (principal); I10 Essential (primary) hypertension; Z87.891 Personal history of nicotine dependence
CPT/HCPCS: 80053; 82948; 85025; 85610; 85730; 96361; 96374; 99284; J2060; J7040

== ENCOUNTER 2017-07-13 08:14 | Emergency (ER) | payer MEDICARE, MEDICAID ==
[2017-07-13 08:14] VITALS: BMI 29.0
[2017-07-13 08:17] VITALS: O2SAT 99
[2017-07-13] MEDS ORDERED: Sodium Chloride 0.9% 1,000 ML IV ONE (09:01)
[2017-07-13 09:16] LABS: EOS % 0.3 % (0.0-4.0); HEMATOCRIT 36.7 % (34.0-47.0); LYMPH # 1.5 K/uL (1.0-4.3); LYMPH % 30.5 % (20.0-40.0); MEAN CELL VOLUME 76.5 fL (81.0-99.0); MEAN CORPUSCULAR HEMOGLOBIN 25.5 pg (27.0-31.0); MEAN CORPUSCULAR HGB CONC 33.3 g/dL (33.0-37.0); MEAN PLATELET VOLUME 8.3 fL (7.2-11.7); MONO # 0.4 K/uL (0.0-0.8); MONO % 7.2 % (0.0-10.0); NRBC % 0.1 % (0.0-2.0); RED CELL DISTRIBUTION WIDTH 14.3 % (11.5-14.5); WHITE BLOOD COUNT 4.8 K/uL (4.8-10.8)
[2017-07-13] MEDS ORDERED: Sodium Chloride 0.9% 250 ML IV ONE (09:17)
[2017-07-13 09:21] LABS: URINE BILIRUBIN NEGATIVE (NEGATIVE); URINE BLOOD 1+ (NEGATIVE); URINE COLOR Straw (YELLOW); URINE GLUCOSE (UA) NORMAL (Normal); URINE KETONE NEGATIVE (NEGATIVE); URINE LEUKOCYTE ESTERASE 1+ Leu/uL (Negative); URINE PROTEIN NEGATIVE (NEGATIVE); URINE UROBILINOGEN NORMAL mg/dL (0.2-1.0); WBC URINE 4 /hpf (0-5)
[2017-07-13 09:23] LABS: RBC URINE 3 /hpf (0-3); URINE BACTERIA RARE (<OCC)
[2017-07-13 09:28] LABS: ALKALINE PHOSPHATASE 62 U/L (38-126); ALT/SGPT 42 U/L (9-52); AST/SGOT 24 U/L (14-36); BILIRUBIN,TOTAL 0.5 mg/dL (0.2-1.3); BLOOD UREA NITROGEN 13 mg/dL (7-17); CALCIUM 8.6 mg/dl (8.6-10.4); CARBON DIOXIDE 29 mmol/L (22-30); CHLORIDE 100 mmol/L (98-107); GFR AFRICAN-AMERICAN > 60; GLUCOSE,RANDOM 67 mg/dL (65-105); POTASSIUM 3.4 mmol/L (3.6-5.2); SODIUM 137 mmol/L (132-148); TOTAL PROTEIN 8.4 g/dL (6.3-8.3)
[2017-07-13] MEDS ORDERED: Iodixanol 320 MG/ML 100 ML BOTTLE IV ONE (10:29)
--- NOTE | 2017-07-13 10:50 | C.PDOC ---
History Of Present Illness 67-year-old female, presents to the emergency department with complaints of abdominal pain, nausea, non-bloody/non-bilious vomiting, and watery/non-bloody diarrhea for the past three days. Patient is compliant with her medication, but didn't take it this morning. She denies sick contacts and is a poor historian. ( -)fever, (-) symptoms, (-)back pain, (-)any other associated symptoms. No other complaints at this time. Time Seen by Provider: 07/13/17 08:36 Chief Complaint (Nursing): Abdominal Pain History Per: Patient History/Exam Limitations: other (poor historian) Onset/Duration Of Symptoms: Days Severity: Moderate Past Medical History Reviewed: Historical Data, Nursing Documentation, Vital Signs Vital Signs: Last Vital Signs Temp 97.5 F L 07/13/17 13:12 Pulse 53 L 07/13/17 13:18 Resp 14 07/13/17 13:18 BP 123/65 07/13/17 13:18 Pulse Ox 99 07/13/17 13:18 - Medical History PMH: Anxiety, Asthma, Bipolar Disorder, Depression, HTN, Hypercholesterolemia, Schizophrenia Surgical History: Endoscopy Family History: States: No Known Family Hx - Social History Hx Alcohol Use: No Hx Substance Use: No - Immunization History Hx Tetanus Toxoid Vaccination: Yes Hx Influenza Vaccination: Yes (6 months ago) Hx Pneumococcal Vaccination: Yes (07/2015) Review Of Systems Constitutional: Negative for: Fever Cardiovascular: Negative for: Chest Pain Respiratory: Negative for: Shortness of Breath Gastrointestinal: Positive for: Nausea, Vomiting, Abdominal Pain, Diarrhea Genitourinary: Negative for: Dysuria, Frequency Musculoskeletal: Negative for: Back Pain Physical Exam - Physical Exam Appears: Non-toxic, No Acute Distress Skin: Warm, Dry (dry skin to lips and dorsal aspect B/L hands.), No Rash Head: Atraumatic, Normacephalic Eye(s): bilateral: Normal Inspection, PERRL Nose: Normal Oral Mucosa: Moist Lips: Normal Appearing Neck: Normal ROM Cardiovascular: Rhythm Regular, No Murmur Respiratory: Normal Breath Sounds, No Accessory Muscle Use Gastrointestinal/Abdominal: Soft, Tenderness (diffuse), No Guarding, No Rebound , Other ((-)[place], (-)[place]) Extremity: Normal ROM Neurological/Psych: Oriented x3, Normal Speech ED Course And Treatment - Laboratory Results Result Diagrams: 07/13/17 09:12 07/13/17 09:12 O2 Sat by Pulse Oximetry: 99 (on RA) Pulse Ox Interpretation: Normal - CT Scan/US Abd Pelvis CT Other Rad Studies (CT/US): Read By Radiologist, Radiology Report Reviewed CT/US Interpretation: CT abdomen and pelvis. History: Abdominal pain. Comparison: 04/08/2017. Technique: Multiple contiguous axial images were performed through the abdomen and pelvis with the use of intravenous contrast. Subsequently, sagittal and coronal reformatted images were obtained. This CT exam was performed using one or more of the following dose reduction techniques : Automated exposure control, adjustment of the mA and/or kV according to patient size, and/or use of iterative reconstruction technique. Findings: Mild scattered atelectasis at the lung bases. No pleural or pericardial effusion. Mild fatty infiltration of the liver. 1.1 centimeter hypodensity in the right hepatic lobe, too small to adequately characterize. Gallbladder appears preserved. Spleen appears preserved. 1 centimeter nodule at the level of the left adrenal gland demonstrating a Hounsfield unit attenuation of approximately 85, indeterminate. Correlation with multiphasic CT or MR may be helpful for further evaluation if clinically indicated. Pancreas appears preserved. Upper abdominal bowel appears preserved. Right kidney: No calculi or hydronephrosis. Left Kidney: No calculi or hydronephrosis. Distended urinary bladder. Uterus appears grossly preserved. Evaluation of the lower abdominal bowel demonstrates mild fecal retention in the colon. Appendix is visualized and within normal limits. Few shotty para-aortic and mesenteric lymph nodes. Mild sclerosis at the posterior aspect of the left SI joint space. Degenerative changes in the spine. Impression: Negative acute. 1 centimeter nodule at the level of the left adrenal gland demonstrating a Hounsfield unit attenuation of approximately 85, indeterminate. Correlation with multiphasic CT or MR may be helpful for further evaluation if clinically indicated. 1.1 centimeter hypodensity in the right hepatic lobe, too small to adequately characterize. Clinical correlation. Additional findings as above. Progress Note: Bloodwork, UA and CT Abd/Pel ordered and reviewed. Patient treated with Pepcid, IVF, Toradol and Zofran. On re-evaluation, pt notes pain improved. Tolerating PO. Afebrile. Pr requesting food. Instructed to follow up with Dr Dumas , in1 -[address] results, and gave CT results, discussed findings and instructed strict out pt follow up. Disposition - Disposition Disposition: HOME/ ROUTINE Disposition Time: 12:58 Condition: STABLE Additional Instructions: Follow up with your doctor in 1-2 days and show him your CT results. Return to eR if symptoms persist or worsen. Prescriptions: Ondansetron ODT [Zofran ODT] 1 odt PO BID PRN #6 odt PRN Reason: Nausea/Vomiting Instructions: Acute Abdominal Pain (ED) Forms: [employer] (Amharic) - Clinical Impression Clinical Impression: Abdominal pain - Scribe Statement The provider has reviewed the documentation as recorded by the Scribe (Pradeep Westbrook) All medical record entries made by the Scribe were at my direction and personally dictated by me. I have reviewed the chart and agree that the record accurately reflects my personal performance of the history, physical exam, medical decision making, and the department course for this patient. I have also personally directed, reviewed, and agree with the discharge instructions and disposition.
[2017-07-13 11:15] VITALS: PULSE 53
--- NOTE | 2017-07-13 12:41 | CT ---
CT abdomen and pelvis History: Abdominal pain. Comparison: 04/08/2017 Technique: Multiple contiguous axial images were performed through the abdomen and pelvis with the use of intravenous contrast. Subsequently, sagittal and coronal reformatted images were obtained. This CT exam was performed using one or more of the following dose reduction techniques: Automated exposure control, adjustment of the mA and/or kV according to patient size, and/or use of iterative reconstruction technique. Findings: Mild scattered atelectasis at the lung bases. No pleural or pericardial effusion. Mild fatty infiltration of the liver. 1.1 centimeter hypodensity in the right hepatic lobe, too small to adequately characterize. Gallbladder appears preserved. Spleen appears preserved. 1 centimeter nodule at the level of the left adrenal gland demonstrating a Hounsfield unit attenuation of approximately 85, indeterminate. Correlation with multiphasic CT or MR may be helpful for further evaluation if clinically indicated. Pancreas appears preserved. Upper abdominal bowel appears preserved. Right kidney: No calculi or hydronephrosis. Left Kidney: No calculi or hydronephrosis. Distended urinary bladder. Uterus appears grossly preserved. Evaluation of the lower abdominal bowel demonstrates mild fecal retention in the colon. Appendix is visualized and within normal limits. Few shotty para-aortic and mesenteric lymph nodes. Mild sclerosis at the posterior aspect of the left SI joint space. Degenerative changes in the spine. Impression: Negative acute. 1 centimeter nodule at the level of the left adrenal gland demonstrating a Hounsfield unit attenuation of approximately 85, indeterminate. Correlation with multiphasic CT or MR may be helpful for further evaluation if clinically indicated. 1.1 centimeter hypodensity in the right hepatic lobe, too small to adequately characterize. Clinical correlation. Additional findings as above.
[2017-07-13 13:13] VITALS: BP 123/65; RESP 14; TEMP 97.5
== END 2017-07-13 14:17 | disposition home or self-care (01) ==
LOC: C.ER 08:14
DX: R10.9 Unspecified abdominal pain (principal)
CPT/HCPCS: 74177; 80053; 81001; 83690; 85025; 87086; 96361; 96374; 96375; 99285; J1885; J2405; J7040; Q9967

== ENCOUNTER 2017-07-28 07:18 | Inpatient (IN) | payer MEDICARE, MEDICAID ==
[2017-07-28 07:18] VITALS: BMI 29.0
[2017-07-28 08:08] LABS: BASO % 0.4 % (0.0-2.0); EOS % 0.4 % (0.0-4.0); HEMOGLOBIN 11.9 g/dL (11.0-16.0); LYMPH % 33.3 % (20.0-40.0); MEAN CELL VOLUME 76.5 fL (81.0-99.0); MEAN CORPUSCULAR HEMOGLOBIN 25.8 pg (27.0-31.0); MEAN CORPUSCULAR HGB CONC 33.8 g/dL (33.0-37.0); MEAN PLATELET VOLUME 7.4 fL (7.2-11.7); MONO # 0.2 K/uL (0.0-0.8); MONO % 7.9 % (0.0-10.0); NEUT # 1.8 K/uL (1.8-7.0); NRBC % 0.1 % (0.0-2.0); RBC 4.6 Mil/uL (3.80-5.20); RED CELL DISTRIBUTION WIDTH 14.2 % (11.5-14.5)
[2017-07-28 08:16] LABS: INR 1.9; PROTHROMBIN TIME 21.3 SECONDS (9.7-12.2)
[2017-07-28 08:25] LABS: ALB/GLOB RATIO 1.3 (1.0-2.1); ALBUMIN 4.2 g/dL (3.5-5.0); ALT/SGPT 27 U/L (9-52); AST/SGOT 27 U/L (14-36); BLOOD UREA NITROGEN 9 mg/dL (7-17); CALCIUM 8.9 mg/dl (8.6-10.4); GFR AFRICAN-AMERICAN > 60; GFR NON-AFRICAN AMERICAN > 60
[2017-07-28 08:36] LABS: CK-MB 1.86 ng/mL (0.0-3.38)
[2017-07-28 08:36] LABS: SQUAMOUS EPITHIAL 5 /hpf (0-5); URINE BILIRUBIN NEGATIVE (NEGATIVE); URINE BLOOD 1+ (NEGATIVE); URINE CLARITY Clear (Clear); URINE COLOR Straw (YELLOW); URINE GLUCOSE (UA) NORMAL (Normal); URINE LEUKOCYTE ESTERASE NEG Leu/uL (Negative); URINE NITRATE NEGATIVE (NEGATIVE); URINE PROTEIN NEGATIVE (NEGATIVE); URINE UROBILINOGEN NORMAL mg/dL (0.2-1.0)
[2017-07-28 08:41] LABS: BENZODIAZEPINES, UR NEGATIVE (NEGATIVE); OPIATES, UR NEGATIVE (NEGATIVE); PHENCYCLIDINE, UR NEGATIVE (NEGATIVE)
[2017-07-28 08:48] LABS: BARBITURATES, UR POSITIVE (NEGATIVE)
--- NOTE | 2017-07-28 08:56 | C.PDOC ---
History Of Present Illness 67-year-old female presents to ED for evaluation after syncopal episode. She admits to a Hx of headaches. This morning while in the bathroom, she states she felt dizzy (described as the room was spinning around her) and she fell, had ,an unwitnessed syncopal episode for approximately five minutes. Patient notes associated nausea. She denies chest pain, palpitations, shortness of breath, visual changes, extremity weakness, sensory changes, facial droop, slurred speech. She states this happened once before, was admitted "several months ago". Time Seen by Provider: 07/28/17 07:30 Chief Complaint (Nursing): Syncope History Per: Patient History/Exam Limitations: no limitations Onset/Duration Of Symptoms: Hrs Current Symptoms Are (Timing): Still Present Associated Symptoms Preceding Syncopal Episode: Vertigo Seizure Or Post-ictal Symptoms: None Possible Causative Factor(s): Vertigo Fall Associated With With Symptoms: Yes Severity: Moderate - Symptoms Of CVA Associated Symptoms: denies: Impaired Speech, Seizure Activity, New Vision Deficit(Left), New Vision Deficit(Right), Decreased Ability To Walk, New Confusion Past Medical History Reviewed: Historical Data, Nursing Documentation, Vital Signs Vital Signs: Last Vital Signs Temp 97.3 F L 07/30/17 07:05 Pulse 60 07/30/17 07:05 Resp 18 07/30/17 07:05 BP 152/78 H 07/30/17 07:05 Pulse Ox 95 07/30/17 07:05 - Medical History PMH: Anxiety, Asthma, Bipolar Disorder, Depression, HTN, Hypercholesterolemia, Schizophrenia Surgical History: Endoscopy Family History: States: No Known Family Hx - Social History Hx Alcohol Use: No Hx Substance Use: No - Immunization History Hx Tetanus Toxoid Vaccination: Yes Hx Influenza Vaccination: Yes (6 months ago) Hx Pneumococcal Vaccination: Yes (07/2015) Review Of Systems Except As Marked, All Systems Reviewed And Found Negative. Constitutional: Negative for: Fever, Chills Cardiovascular: Negative for: Chest Pain, Palpitations Respiratory: Negative for: Cough, Shortness of Breath Gastrointestinal: Negative for: Nausea, Vomiting, Abdominal Pain, Diarrhea Musculoskeletal: Negative for: Back Pain Neurological: Positive for: Dizziness, Other (syncope). Negative for: Weakness , Numbness, Incoordination, Change in Speech, Confusion, Seizures, Altered Mental Status, Headache Physical Exam - Physical Exam Appears: Well, Non-toxic, No Acute Distress, Other (bizarre affect) Skin: Normal Color, Warm, Dry, No Rash Head: Atraumatic, Normacephalic Eye(s): bilateral: Normal Inspection (no nystagmus ), PERRL, EOMI Oral Mucosa: Moist Neck: Normal, Normal ROM, No Midline Cervical Tenderness, No Paracervical Tenderness, No Step Off Deformity, Supple Chest: Symmetrical Cardiovascular: Rhythm Regular, No Murmur Respiratory: Normal Breath Sounds, No Rales, No Rhonchi, No Wheezing Gastrointestinal/Abdominal: Normal Exam, Bowel Sounds, Soft, No Tenderness Extremity: Normal ROM, No Pedal Edema, No Calf Tenderness Extremity: Bilateral: Atraumatic, Normal Color And Temperature, Normal ROM Pulses: Left Dorsalis Pedis: Normal, Right Dorsalis Pedis: Normal Neurological/Psych: Oriented x3, Normal Speech, Normal Cognition, Normal Cranial Nerves, No Cerebellar Signs, Normal Motor, Normal Sensation Gait: Steady ED Course And Treatment - Laboratory Results Result Diagrams: 07/30/17 08:17 07/30/17 08:17 ECG: Interpreted By Me, Viewed By Me (sinus bradycardia 56 bpm, normal axis, no acute ST/T wave changes) ECG Interpretation: Abnormal O2 Sat by Pulse Oximetry: 100 (on RA) Pulse Ox Interpretation: Normal - CT Scan/US CT HEAD Other Rad Studies (CT/US): Read By Radiologist, Radiology Report Reviewed CT/US Interpretation: Accession No. : [id number]. Patient Name / ID : CHRIS MANCUSO / [id number]. Exam Date : 07/28/2017 08:26:33 ( Approved ). Study Comment : Sex / Age : F / 67Y. Creator : Carla Huang MD. Dictator : Carla Huang MD. Guidance Secretary : Dry Pan Operator : Carla Huang MD. Approver2 : Report Date : 07/28/2017 09:04:26. My Comment : . PROCEDURE: CT HEAD WITHOUT CONTRAST. HISTORY: syncope. COMPARISON: Comparison is made with 05/04/2017. TECHNIQUE: Axial computed tomography images were obtained through the head/brain without intravenous contrast. Radiation dose: Total exam DLP = 823.04 mGy-cm. This CT exam was performed using one or more of the following dose reduction techniques: Automated exposure control, adjustment of the mA and/or kV according to patient size, and/ or use of iterative reconstruction technique. FINDINGS: HEMORRHAGE: No intracranial hemorrhage. BRAIN: No mass effect or edema. No atrophy or chronic microvascular ischemic changes. VENTRICLES: Unremarkable. No hydrocephalus. CALVARIUM: Unremarkable. PARANASAL SINUSES: Mild left sphenoid mucosal thickening is noted improved compared to the previous exam. MASTOID AIR CELLS: Unremarkable as visualized. No inflammatory changes. OTHER FINDINGS: None. IMPRESSION: No evidence of acute intracranial hemorrhage territorial infarct mass effect or midline shift. Progress Note: Bloodwork, EKG, CT Head and UA, Upeg ordered and reviewed. Patient given PO ASA after CT head (-) for bleed. - Physician Consult Information Physician Contacted: Dennis Ramos Outcome Of Conversation: Discussed patient with Dr. Dhara Ramos, agrees with admission for syncope, sinus bradycardia. Disposition - Disposition Disposition: HOSPITALIZED Disposition Time: 09:33 Condition: STABLE - Clinical Impression Clinical Impression: Syncope, Sinus bradycardia, Vertigo - Scribe Statement The provider has reviewed the documentation as recorded by the Scribe (rPadeep Westbrook) All medical record entries made by the Scribe were at my direction and personally dictated by me. I have reviewed the chart and agree that the record accurately reflects my personal performance of the history, physical exam, medical decision making, and the department course for this patient. I have also personally directed, reviewed, and agree with the discharge instructions and disposition. Decision To Admit - Pt Status Changed To: Hospital Disposition Of: Inpatient - Admit Certification Admit to Inpatient:: After my assessment, the patient will require hospitalization for at least two midnights. This is because of the severity of symptoms shown, intensity of services needed, and/or the medical risk in this patient being treated as an outpatient. - InPatient: Physician Admission Certification: I certify that this patient requires 2 or more midnights of care for the following reason:: see notes - . Bed Request Type: Telemetry Admitting Physician: Dennis Ramos Patient Diagnosis: Vertigo, Syncope, Sinus bradycardia
--- NOTE | 2017-07-28 09:06 | CT ---
PROCEDURE: CT HEAD WITHOUT CONTRAST. HISTORY: syncope COMPARISON: Comparison is made with 05/04/2017 TECHNIQUE: Axial computed tomography images were obtained through the head/brain without intravenous contrast. Radiation dose: Total exam DLP = 823.04 mGy-cm. This CT exam was performed using one or more of the following dose reduction techniques: Automated exposure control, adjustment of the mA and/or kV according to patient size, and/or use of iterative reconstruction technique. FINDINGS: HEMORRHAGE: No intracranial hemorrhage. BRAIN: No mass effect or edema. No atrophy or chronic microvascular ischemic changes. VENTRICLES: Unremarkable. No hydrocephalus. CALVARIUM: Unremarkable. PARANASAL SINUSES: Mild left sphenoid mucosal thickening is noted improved compared to the previous exam. MASTOID AIR CELLS: Unremarkable as visualized. No inflammatory changes. OTHER FINDINGS: None. IMPRESSION: No evidence of acute intracranial hemorrhage territorial infarct mass effect or midline shift.
[2017-07-28 14:10] LABS: CK-MB 1.49 ng/mL (0.0-3.38)
--- NOTE | 2017-07-28 14:25 | CP.PCM.CON ---
History of Present Illness - History of Present Illness History of Present Illness: I was asked to evaluate patient by Dr. Dhara Ramos. Patient is a 67 year old female with PMH HTn who presents with various complaints. She has normal left ventricular function by echocardiogram in April. She has various complaints including dizziness, headache and chest pain. The patient is a poor historian, and was noted to have a syncopal event in the past. Review of Systems - Review of Systems Systems not reviewed;Unavailable: Altered Mental Status Past Patient History - Infectious Disease Hx of Infectious Diseases: None - Past Medical History & Family History Past Medical History?: Yes - Past Social History Smoking Status: Never Smoked - CARDIAC Hx Hypercholesterolemia: Yes Hx Hypertension: Yes - PULMONARY Hx Asthma: Yes - NEUROLOGICAL Hx Neurological Disorder: No Other/Comment: slow to comprehend easily distracted - HEENT Hx HEENT Problems: No - RENAL Hx Chronic Kidney Disease: No - ENDOCRINE/METABOLIC Hx Endocrine Disorders: No - HEMATOLOGICAL/ONCOLOGICAL Hx Blood Disorders: No - INTEGUMENTARY Hx Dermatological Problems: No - MUSCULOSKELETAL/RHEUMATOLOGICAL Hx Falls: Yes - GASTROINTESTINAL Hx Gastrointestinal Disorders: No - GENITOURINARY/GYNECOLOGICAL Hx Genitourinary Disorders: No - PSYCHIATRIC Hx Substance Use: No - SURGICAL HISTORY Hx Surgeries: Yes Hx Breast Biopsy: Yes Other/Comment: "right breast lumpectomy about 50 years ago" - ANESTHESIA Hx Anesthesia: Yes Hx Anesthesia Reactions: No Hx Malignant Hyperthermia: No Meds Allergies/Adverse Reactions: Allergies Allergy/AdvReac Type Severity Reaction Status Date / Time Penicillins Allergy Intermediate RASH Verified 07/13/17 08:17 Physical Exam - Constitutional Appears: Non-toxic - Head Exam Head Exam: NORMAL INSPECTION - Eye Exam Eye Exam: Normal appearance - ENT Exam ENT Exam: Mucous Membranes Moist - Neck Exam Neck exam: Positive for: Normal Inspection - Respiratory Exam Respiratory Exam: NORMAL BREATHING PATTERN - Cardiovascular Exam Cardiovascular Exam: REGULAR RHYTHM - GI/Abdominal Exam GI & Abdominal Exam: Normal Bowel Sounds - Rectal Exam Rectal Exam: absent: Deferred - Extremities Exam Extremities exam: Negative for: pedal edema - Back Exam Back exam: NORMAL INSPECTION - Neurological Exam Neurological exam: Alert, Oriented x3 - Psychiatric Exam Psychiatric exam: Normal Affect - Skin Skin Exam: Normal Color Results - Vital Signs Recent Vital Signs: Last Vital Signs Temp 98 F 07/28/17 12:00 Pulse 62 07/28/17 12:00 Resp 18 07/28/17 12:00 BP 152/75 H 07/28/17 12:00 Pulse Ox 97 07/28/17 12:00 - Labs Result Diagrams: 07/28/17 08:05 07/28/17 08:05 Labs: Laboratory Results - last 24 hr 07/28/17 07/28/17 07/28/17 08:05 08:05 08:05 WBC 3.0 L RBC 4.60 Hgb 11.9 Hct 35.2 MCV 76.5 L MCH 25.8 L MCHC 33.8 RDW 14.2 Plt Count 197 MPV 7.4 Neut % (Auto) 58.0 Lymph % (Auto) 33.3 [place] % (Auto) 7.9 Eos % (Auto) 0.4 Baso % (Auto) 0.4 Neut # 1.8 Lymph # 1.0 [place] # 0.2 Eos # 0.0 Baso # 0.0 PT 21.3 H INR 1.9 APTT 40 H Sodium 135 Potassium 3.5 L Chloride 99 Carbon Dioxide 30 Anion Gap 10 BUN 9 Creatinine 0.6 L Est GFR ( Amer) > 60 Est GFR (Non-Af Amer) > 60 Random Glucose 78 Calcium 8.9 Total Bilirubin 0.6 AST 27 ALT 27 Alkaline Phosphatase 57 Total Creatine Kinase 153 H CK-MB (Mass) 1.86 Troponin I < 0.0120 Total Protein 7.5 Albumin 4.2 Globulin 3.3 Albumin/Globulin Ratio 1.3 Urine Color Urine Clarity Urine pH Ur Specific [place] Urine Protein Urine Glucose (UA) Urine Ketones Urine Blood Urine Nitrate Urine Bilirubin Urine Urobilinogen Ur Leukocyte Esterase Urine WBC (Auto) Urine RBC (Auto) Ur Squamous Epith Cells Urine Opiates Screen Urine Methadone Screen Ur Barbiturates Screen Ur Phencyclidine Scrn Ur Amphetamines Screen U Benzodiazepines Scrn U Oth Cocaine Metabols U Cannabinoids Screen 07/28/17 07/28/17 07/28/17 08:17 08:17 13:30 WBC RBC Hgb Hct MCV MCH MCHC RDW Plt Count MPV Neut % (Auto) Lymph % (Auto) [place] % (Auto) Eos % (Auto) Baso % (Auto) Neut # Lymph # [place] # Eos # Baso # PT INR APTT Sodium Potassium Chloride Carbon Dioxide Anion Gap BUN Creatinine Est GFR ( Amer) Est GFR (Non-Af Amer) Random Glucose Calcium Total Bilirubin AST ALT Alkaline Phosphatase Total Creatine Kinase 138 H CK-MB (Mass) 1.49 Troponin I < 0.0120 Total Protein Albumin Globulin Albumin/Globulin Ratio Urine Color Straw Urine Clarity Clear Urine pH 7.0 Ur Specific [place] 1.002 L Urine Protein Negative Urine Glucose (UA) Normal Urine Ketones Negative Urine Blood 1+ H Urine Nitrate Negative Urine Bilirubin Negative Urine Urobilinogen Normal Ur Leukocyte Esterase Neg Urine WBC (Auto) 1 Urine RBC (Auto) 1 Ur Squamous Epith Cells 5 Urine Opiates Screen Negative Urine Methadone Screen Negative Ur Barbiturates Screen Positive H Ur Phencyclidine Scrn Negative Ur Amphetamines Screen Negative U Benzodiazepines Scrn Negative U Oth Cocaine Metabols Negative U Cannabinoids Screen Negative - EKG Data EKG Interpreted by: Myself EKG shows normal: Sinus rhythm Assessment & Plan (1) HTN (hypertension) Assessment and Plan: will manage blood pressure. had bradycardia on admission, thus far will avoid betablocker Status: Acute (2) Syncope Assessment and Plan: monitor on telemetry Status: Acute
--- NOTE | 2017-07-28 15:08 | CP.PCM.HP ---
History of Present Illness - History of Present Illness History of Present Illness: 67-year-old female with past medical history of hypertension, hyperlipidemia, depression, anxiety, asthma and headaches presents to ED for further evaluation of an unwitnessed syncopal episode of onset this AM. Patient was in bathroom when she started feeling nausea and dizziness prior to syncopal episode. Denies fever, chills, chest pain, palpitations, diaphoresis, nausea, shortness of breath, urinary incontinence, tongue biting, or any weakness or numbness. As per pt, regained consciousness after 4-5 minutes. Prior similar episode few months ago as per pt. Present on Admission - Present on Admission Any Indicators Present on Admission: No Review of Systems - Constitutional Constitutional: Headache - Cardiovascular Cardiovascular: Syncope - Gastrointestinal Gastrointestinal: Nausea - Neurological Neurological: Dizziness Past Patient History - Infectious Disease Hx of Infectious Diseases: None - Past Medical History & Family History Past Medical History?: Yes - Past Social History Smoking Status: Never Smoked - CARDIAC Hx Hypercholesterolemia: Yes Hx Hypertension: Yes - PULMONARY Hx Asthma: Yes - NEUROLOGICAL Hx Neurological Disorder: No Other/Comment: slow to comprehend easily distracted - HEENT Hx HEENT Problems: No - RENAL Hx Chronic Kidney Disease: No - ENDOCRINE/METABOLIC Hx Endocrine Disorders: No - HEMATOLOGICAL/ONCOLOGICAL Hx Blood Disorders: No - INTEGUMENTARY Hx Dermatological Problems: No - MUSCULOSKELETAL/RHEUMATOLOGICAL Hx Falls: Yes - GASTROINTESTINAL Hx Gastrointestinal Disorders: No - GENITOURINARY/GYNECOLOGICAL Hx Genitourinary Disorders: No - PSYCHIATRIC Hx Substance Use: No - SURGICAL HISTORY Hx Surgeries: Yes Hx Breast Biopsy: Yes Other/Comment: "right breast lumpectomy about 50 years ago" - ANESTHESIA Hx Anesthesia: Yes Hx Anesthesia Reactions: No Hx Malignant Hyperthermia: No Meds Allergies/Adverse Reactions: Allergies Allergy/AdvReac Type Severity Reaction Status Date / Time Penicillins Allergy Intermediate RASH Verified 07/13/17 08:17 Physical Exam - Constitutional Appears: Well - Head Exam Head Exam: ATRAUMATIC, NORMAL INSPECTION, NORMOCEPHALIC - Eye Exam Eye Exam: EOMI, Normal appearance, PERRL Pupil Exam: NORMAL ACCOMODATION, PERRL - ENT Exam ENT Exam: Mucous Membranes Moist, Normal Exam - Neck Exam Neck exam: Positive for: Normal Inspection - Respiratory Exam Respiratory Exam: Decreased Breath Sounds - Cardiovascular Exam Cardiovascular Exam: REGULAR RHYTHM, +S1, +S2 - GI/Abdominal Exam GI & Abdominal Exam: Diminished Bowel Sounds, Soft - Rectal Exam Rectal Exam: Deferred - Neurological Exam Neurological exam: Alert, Oriented x3 Results - Vital Signs Recent Vital Signs: Last Vital Signs Temp 98 F 07/28/17 12:00 Pulse 62 07/28/17 12:00 Resp 18 07/28/17 12:00 BP 152/75 H 07/28/17 12:00 Pulse Ox 97 07/28/17 12:00 - Labs Result Diagrams: 07/30/17 08:17 07/30/17 08:17 Labs: Laboratory Results - last 24 hr 07/28/17 07/28/17 07/28/17 08:05 08:05 08:05 WBC 3.0 L RBC 4.60 Hgb 11.9 Hct 35.2 MCV 76.5 L MCH 25.8 L MCHC 33.8 RDW 14.2 Plt Count 197 MPV 7.4 Neut % (Auto) 58.0 Lymph % (Auto) 33.3 [place] % (Auto) 7.9 Eos % (Auto) 0.4 Baso % (Auto) 0.4 Neut # 1.8 Lymph # 1.0 [place] # 0.2 Eos # 0.0 Baso # 0.0 PT 21.3 H INR 1.9 APTT 40 H Sodium 135 Potassium 3.5 L Chloride 99 Carbon Dioxide 30 Anion Gap 10 BUN 9 Creatinine 0.6 L Est GFR ( Amer) > 60 Est GFR (Non-Af Amer) > 60 Random Glucose 78 Calcium 8.9 Total Bilirubin 0.6 AST 27 ALT 27 Alkaline Phosphatase 57 Total Creatine Kinase 153 H CK-MB (Mass) 1.86 Troponin I < 0.0120 Total Protein 7.5 Albumin 4.2 Globulin 3.3 Albumin/Globulin Ratio 1.3 Urine Color Urine Clarity Urine pH Ur Specific [place] Urine Protein Urine Glucose (UA) Urine Ketones Urine Blood Urine Nitrate Urine Bilirubin Urine Urobilinogen Ur Leukocyte Esterase Urine WBC (Auto) Urine RBC (Auto) Ur Squamous Epith Cells Urine Opiates Screen Urine Methadone Screen Ur Barbiturates Screen Ur Phencyclidine Scrn Ur Amphetamines Screen U Benzodiazepines Scrn U Oth Cocaine Metabols U Cannabinoids Screen 07/28/17 07/28/17 07/28/17 08:17 08:17 13:30 WBC RBC Hgb Hct MCV MCH MCHC RDW Plt Count MPV Neut % (Auto) Lymph % (Auto) [place] % (Auto) Eos % (Auto) Baso % (Auto) Neut # Lymph # [place] # Eos # Baso # PT INR APTT Sodium Potassium Chloride Carbon Dioxide Anion Gap BUN Creatinine Est GFR ( Amer) Est GFR (Non-Af Amer) Random Glucose Calcium Total Bilirubin AST ALT Alkaline Phosphatase Total Creatine Kinase 138 H CK-MB (Mass) 1.49 Troponin I < 0.0120 Total Protein Albumin Globulin Albumin/Globulin Ratio Urine Color Straw Urine Clarity Clear Urine pH 7.0 Ur Specific [place] 1.002 L Urine Protein Negative Urine Glucose (UA) Normal Urine Ketones Negative Urine Blood 1+ H Urine Nitrate Negative Urine Bilirubin Negative Urine Urobilinogen Normal Ur Leukocyte Esterase Neg Urine WBC (Auto) 1 Urine RBC (Auto) 1 Ur Squamous Epith Cells 5 Urine Opiates Screen Negative Urine Methadone Screen Negative Ur Barbiturates Screen Positive H Ur Phencyclidine Scrn Negative Ur Amphetamines Screen Negative U Benzodiazepines Scrn Negative U Oth Cocaine Metabols Negative U Cannabinoids Screen Negative Assessment & Plan (1) HTN (hypertension) Status: Acute (2) Sinus bradycardia Status: Acute (3) Syncope Status: Acute (4) Vertigo Status: Acute (5) Abdominal pain Status: Acute (6) Acute recurrent sphenoidal sinusitis Status: Acute (7) Adrenal adenoma Status: Acute (8) Anemia Status: Acute (9) Bradycardia Status: Acute (10) Bronchitis Status: Acute (11) Cellulitis Status: Acute (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, acute Status: Acute (13) Chest pain of unknown etiology Status: Acute (14) Constipation Status: Acute (15) Diarrhea Status: Acute (16) Fall Status: Acute (17) Headache Status: Acute (18) Low back pain Status: Acute (19) Migraine Status: Acute (20) Nausea Status: Acute (21) Skin irritation Status: Acute (22) Syncope Status: Acute (23) Syncope and collapse Status: Acute (24) UTI (urinary tract infection) Status: Acute (25) Vertigo Status: Acute (26) Vomiting Status: Acute - Assessment and Plan (Free Text) Plan: ASA meclizine hi other meds as ordered cardio consult neuro Dr George cbc cmp Coag studies CT head UA Utox heart healthy diet
[2017-07-28 17:24] LABS: CK-MB 1.27 ng/mL (0.0-3.38)
[2017-07-28 22:08] LABS: CK-MB 0.95 ng/mL (0.0-3.38)
[2017-07-29 08:36] LABS: CK-MB 1.12 ng/mL (0.0-3.38)
[2017-07-29] MEDS: Apap-Butalbital-Caffeine 325-50-40mg Tab PO PRN ×2 (08:57→16:05)
[2017-07-29] MEDS ORDERED: LINACLOTIDE 72 MCG PO SCH (10:00)
[2017-07-29] MEDS: Bacitracin Ointment 30 GM TUBE TOP SCH (10:17)
--- NOTE | 2017-07-29 10:36 | CP.PCM.PN ---
Subjective - Date & Time of Evaluation Date of Evaluation: 07/29/17 Time of Evaluation: 10:07 - Subjective Subjective: Progress Note for Dr. Ramos's Service Pt seen and examined at bedside. She is sitting up. She complains that she has a headache this morning. Continues to have intermittent dizziness. She will be having a brain MRI this morning and is waiting for transport. Objective - Vital Signs/Intake and Output Vital Signs (last 24 hours): Temp Pulse Resp BP Pulse Ox 97.5 F L 61 20 119/72 100 07/29/17 07:10 07/29/17 07:10 07/29/17 07:10 07/29/17 04:49 07/29/17 07:10 Intake and Output: 07/29/17 07/29/17 06:59 18:59 Intake Total 240 Balance 240 - Medications Medications: Current Medications Acetaminophen/Butalbital/Caffeine (Fioricet) 1 tab PO TID PRN PRN Reason: UNKNOWN Last Admin: 07/29/17 08:57 Dose: 1 tab Amlodipine Besylate (Norvasc) 5 mg PO DAILY [facility] Last Admin: 07/29/17 09:03 Dose: 5 mg Aspirin (Aspirin Chewable) 81 mg PO DAILY [facility] Last Admin: 07/29/17 09:03 Dose: 81 mg Bacitracin (Bacitracin) 30 gm TOP DAILY [facility] Gabapentin (Neurontin) 400 mg PO BID [facility] Last Admin: 07/29/17 08:59 Dose: 400 mg Home Med (Linaclotide [Linzess]) 72 mcg PO DAILY [facility] Lorazepam (Ativan) 1 mg PO DAILY@0800 [facility] Last Admin: 07/29/17 07:32 Dose: 1 mg Meclizine HCl (Antivert) 25 mg PO Q6 [facility] Last Admin: 07/29/17 05:56 Dose: 25 mg Rivaroxaban (Xarelto) 20 mg PO DAILY [facility] Last Admin: 07/29/17 08:59 Dose: 20 mg Rosuvastatin Calcium (Crestor) 5 mg PO HS [facility] Last Admin: 07/28/17 21:32 Dose: 5 mg Sertraline HCl (Zoloft) 50 mg PO DAILY [facility] Last Admin: 07/29/17 09:03 Dose: 50 mg Trazodone HCl (Desyrel) 100 mg PO DAILY [facility] Last Admin: 07/29/17 09:03 Dose: 100 mg Ziprasidone (Geodon Cap) 20 mg PO BID [facility] Last Admin: 07/29/17 08:59 Dose: 20 mg - Labs Labs: 07/28/17 08:05 07/28/17 08:05 PT 21.3 SECONDS (9.7-12.2) H 07/28/17 08:05 INR 1.9 07/28/17 08:05 APTT 40 SECONDS (21-34) H 07/28/17 08:05 - Constitutional Appears: No Acute Distress - Head Exam Head Exam: ATRAUMATIC, NORMAL INSPECTION - Eye Exam Eye Exam: EOMI - ENT Exam ENT Exam: Mucous Membranes Moist - Respiratory Exam Respiratory Exam: Clear to Ausculation Bilateral, NORMAL BREATHING PATTERN - Cardiovascular Exam Cardiovascular Exam: Bradycardia (55BPM), REGULAR RHYTHM - GI/Abdominal Exam GI & Abdominal Exam: Soft. absent: Tenderness - Neurological Exam Neurological Exam: Alert, Awake, Oriented x3 - Skin Skin Exam: Dry, Warm Assessment and Plan - Assessment and Plan (Free Text) Plan: Syncope Cardiology consulted- Dr. Trinidad- amie appreciated normal left ventricular function (EF-55%) on echocardiogram in April 2017 BP management- no beta blockers due to bradycardia Tele Trops negative x3 Head CT negative Follow up MRI brain Bradycardic 50-60bpm Meclizine 25mg PO q6hrs for dizziness Hx of Cerebral venous sinus thrombus Occurred April 2017 3mo anticoagulation recommended upon discharge Xarelto 20mg PO daily Migraine Headaches Fioricet 1T po TID prn HTN Norvasc- 5mg PO daily HLD Crestor 5mg PO daily Schizophrenia Geodon 20mg PO daily Depression/anxiety Ativan 1mg PO daily Zoloft 50mg PO daily Trazodone 100mg PO daily Case discussed with Dr. Ramos All management as per Dr. Ramos
--- NOTE | 2017-07-29 11:42 | CP.PCM.PN ---
Subjective - Date & Time of Evaluation Date of Evaluation: 07/29/17 Time of Evaluation: 14:20 - Subjective Subjective: clinically same s/p cardio Dr Trinidad s/p MRI Brain this morning Objective - Vital Signs/Intake and Output Vital Signs (last 24 hours): Temp Pulse Resp BP Pulse Ox 97.5 F L 61 20 119/72 100 07/29/17 07:10 07/29/17 07:10 07/29/17 07:10 07/29/17 04:49 07/29/17 07:10 Intake and Output: 07/29/17 07/29/17 06:59 18:59 Intake Total 240 Balance 240 - Medications Medications: Current Medications Acetaminophen/Butalbital/Caffeine (Fioricet) 1 tab PO TID PRN PRN Reason: UNKNOWN Last Admin: 07/29/17 08:57 Dose: 1 tab Amlodipine Besylate (Norvasc) 5 mg PO DAILY [facility] Last Admin: 07/29/17 09:03 Dose: 5 mg Aspirin (Aspirin Chewable) 81 mg PO DAILY [facility] Last Admin: 07/29/17 09:03 Dose: 81 mg Bacitracin (Bacitracin) 30 gm TOP DAILY [facility] Last Admin: 07/29/17 10:17 Dose: 1 appl Gabapentin (Neurontin) 400 mg PO BID [facility] Last Admin: 07/29/17 08:59 Dose: 400 mg Home Med (Linaclotide [Linzess]) 72 mcg PO DAILY [facility] Lorazepam (Ativan) 1 mg PO DAILY@0800 [facility] Last Admin: 07/29/17 07:32 Dose: 1 mg Meclizine HCl (Antivert) 25 mg PO Q6 [facility] Last Admin: 07/29/17 05:56 Dose: 25 mg Rivaroxaban (Xarelto) 20 mg PO DAILY [facility] Last Admin: 07/29/17 08:59 Dose: 20 mg Rosuvastatin Calcium (Crestor) 5 mg PO HS [facility] Last Admin: 07/28/17 21:32 Dose: 5 mg Sertraline HCl (Zoloft) 50 mg PO DAILY [facility] Last Admin: 07/29/17 09:03 Dose: 50 mg Trazodone HCl (Desyrel) 100 mg PO DAILY [facility] Last Admin: 07/29/17 09:03 Dose: 100 mg Ziprasidone (Geodon Cap) 20 mg PO BID [facility] Last Admin: 07/29/17 08:59 Dose: 20 mg - Labs Labs: 07/28/17 08:05 07/28/17 08:05 PT 21.3 SECONDS (9.7-12.2) H 07/28/17 08:05 INR 1.9 07/28/17 08:05 APTT 40 SECONDS (21-34) H 07/28/17 08:05 - Constitutional Appears: Well - Head Exam Head Exam: ATRAUMATIC, NORMAL INSPECTION, NORMOCEPHALIC - Eye Exam Eye Exam: EOMI, Normal appearance, PERRL Pupil Exam: NORMAL ACCOMODATION, PERRL - ENT Exam ENT Exam: Mucous Membranes Moist, Normal Exam - Neck Exam Neck Exam: Full ROM, Normal Inspection. absent: Lymphadenopathy - Respiratory Exam Respiratory Exam: Decreased Breath Sounds - Cardiovascular Exam Cardiovascular Exam: REGULAR RHYTHM, +S1, +S2 - GI/Abdominal Exam GI & Abdominal Exam: Soft, Diminished Bowel Sounds - Rectal Exam Rectal Exam: Deferred - Neurological Exam Neurological Exam: Alert, Oriented x3 Assessment and Plan (1) HTN (hypertension) Status: Acute (2) Sinus bradycardia Status: Acute (3) Syncope Status: Acute (4) Vertigo Status: Acute (5) Abdominal pain Status: Acute (6) Acute recurrent sphenoidal sinusitis Status: Acute (7) Adrenal adenoma Status: Acute (8) Anemia Status: Acute (9) Bradycardia Status: Acute (10) Bronchitis Status: Acute (11) Cellulitis Status: Acute (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, acute Status: Acute (13) Chest pain of unknown etiology Status: Acute (14) Constipation Status: Acute (15) Diarrhea Status: Acute (16) Fall Status: Acute (17) Headache Status: Acute (18) Low back pain Status: Acute (19) Migraine Status: Acute (20) Nausea Status: Acute (21) Skin irritation Status: Acute (22) Syncope Status: Acute (23) Syncope and collapse Status: Acute (24) UTI (urinary tract infection) Status: Acute (25) Vertigo Status: Acute (26) Vomiting Status: Acute - Assessment and Plan (Free Text) Plan: meds and labs reviewed imaging results noted Heart healthy diet Follow-up with cardio Dr. Trinidad Follow-up with Dr. George neuro hi management as ordered
--- NOTE | 2017-07-29 13:22 | MRI ---
PROCEDURE: MRI BRAIN WITHOUT CONTRAST HISTORY: syncope COMPARISON: MRI brain 05/05/2017 TECHNIQUE: Multiplanar, multisequence MR images of the brain were obtained without intravenous contrast enhancement. FINDINGS: HEMORRHAGE: None DWI: No evidence of an acute or early subacute infarction. BRAIN PARENCHYMA: No mass effect or edema. There is widening of the cerebral sulci bilaterally with mild compensatory ventricular enlargement. This is consistent with cerebral atrophy. Within the periventricular and subcortical white matter, there are bilateral scattered small foci of abnormal T2/FLAIR signal intensity. In a patient of this age, this is most consistent with mild small vessel ischemic changes. VENTRICLES: See above CRANIUM: Calvarium is intact. ORBITS: Grossly unremarkable. PARANASAL SINUSES/MASTOIDS: Minimal mucosal thickening in the left sphenoid sinus. Remainder of the Visualized paranasal sinuses and mastoid air cells are clear. VASCULAR SYSTEM: Skull base flow voids appear intact. OTHER FINDINGS: None. IMPRESSION: No mass, hemorrhage, or acute infarct identified. Age-related changes as above.
--- NOTE | 2017-07-29 13:28 | CARD ---
APPROVED REPORT EKG Measurement Heart [id number] <Conclusion> Sinus bradycardia Minimal voltage criteria for LVH, may be normal variant Borderline ECG
--- NOTE | 2017-07-29 15:41 | CP.PCM.PN ---
Subjective - Date & Time of Evaluation Date of Evaluation: 07/29/17 Time of Evaluation: 15:40 - Subjective Subjective: no cardiac events on telemetry. undergoing MRI. Objective - Vital Signs/Intake and Output Vital Signs (last 24 hours): Temp Pulse Resp BP Pulse Ox 97.5 F L 46 L 20 119/72 100 07/29/17 07:10 07/29/17 12:19 07/29/17 07:10 07/29/17 04:49 07/29/17 07:10 Intake and Output: 07/29/17 07/29/17 06:59 18:59 Intake Total 240 600 Balance 240 600 - Medications Medications: Current Medications Acetaminophen/Butalbital/Caffeine (Fioricet) 1 tab PO TID PRN PRN Reason: UNKNOWN Last Admin: 07/29/17 08:57 Dose: 1 tab Amlodipine Besylate (Norvasc) 5 mg PO DAILY [facility] Last Admin: 07/29/17 09:03 Dose: 5 mg Aspirin (Aspirin Chewable) 81 mg PO DAILY [facility] Last Admin: 07/29/17 09:03 Dose: 81 mg Bacitracin (Bacitracin) 30 gm TOP DAILY [facility] Last Admin: 07/29/17 10:17 Dose: 1 appl Gabapentin (Neurontin) 400 mg PO BID [facility] Last Admin: 07/29/17 08:59 Dose: 400 mg Home Med (Linaclotide [Linzess]) 72 mcg PO DAILY [facility] Lorazepam (Ativan) 1 mg PO DAILY@0800 [facility] Last Admin: 07/29/17 07:32 Dose: 1 mg Meclizine HCl (Antivert) 25 mg PO Q6 [facility] Last Admin: 07/29/17 11:56 Dose: 25 mg Rivaroxaban (Xarelto) 20 mg PO DAILY [facility] Last Admin: 07/29/17 08:59 Dose: 20 mg Rosuvastatin Calcium (Crestor) 5 mg PO HS [facility] Last Admin: 07/28/17 21:32 Dose: 5 mg Sertraline HCl (Zoloft) 50 mg PO DAILY [facility] Last Admin: 07/29/17 09:03 Dose: 50 mg Trazodone HCl (Desyrel) 100 mg PO DAILY [facility] Last Admin: 07/29/17 09:03 Dose: 100 mg Ziprasidone (Geodon Cap) 20 mg PO BID [facility] Last Admin: 07/29/17 08:59 Dose: 20 mg - Labs Labs: 07/28/17 08:05 07/28/17 08:05 PT 21.3 SECONDS (9.7-12.2) H 07/28/17 08:05 INR 1.9 07/28/17 08:05 APTT 40 SECONDS (21-34) H 07/28/17 08:05 Assessment and Plan (1) HTN (hypertension) Status: Acute (2) Syncope Status: Acute
--- NOTE | 2017-07-29 18:59 | CT ---
PROCEDURE: CT Chest without contrast HISTORY: chest pain COMPARISON: None. TECHNIQUE: Contiguous axial images were obtained through the chest without intravenous contrast enhancement. Sagittal and coronal reconstructions were performed. Radiation dose (DLP): 257.25 mGy-cm. This CT exam was performed using one or more of the following dose reduction techniques: Automated exposure control, adjustment of the mA and/or kV according to patient size, and/or use of iterative reconstruction technique. FINDINGS: LUNGS: Clear lungs. Visualized airway clear. MEDIASTINUM: Unremarkable thoracic aorta. No aneurysm. Normal sized heart. Main pulmonary artery unremarkable. No vascular congestion. No lymphadenopathy. PLEURA: No pleural fluid. No pneumothorax. BONES: No fracture. No destructive lesion. UPPER ABDOMEN: Distended stomach filled with fluid and debris. OTHER FINDINGS: None. IMPRESSION: Unremarkable non-contrast enhanced CT of the chest.
[2017-07-30] MEDS: Apap-Butalbital-Caffeine 325-50-40mg Tab PO PRN ×2 (05:49→16:54)
--- NOTE | 2017-07-30 06:45 | PN ---
DATE: 07/29/2017 SUBJECTIVE: The patient had a history of syncopal attack for admission. The patient was seen by and evaluated by Dr. Trejo in my absence. PHYSICAL EXAMINATION: VITAL SIGNS: Blood pressure 119/72, mean arterial pressure 87, respiratory rate 18, temperature 97.9. NEUROLOGY: The patient is more awake, alert, oriented to person, place and time. She is sitting in her chair comfortably and watching the TV. Speech is clear. Cranial nerve examination all intact. No facial sensory deficit. No facial asymmetry. Hearing is normal. Tongue is midline. Good gag. Motor examination: On outstretched hand with eyes closed, no drift noted. Power is symmetric on either side. Deep tendon reflexes are intact. Gait is normal. ASSESSMENT AND PLAN: The patient is scheduled to have workup including MRI of the brain and carotid Doppler to rule out any ischemic process. The patient is also scheduled to have electroencephalogram to rule out any electrographic seizures. The patient has been taking tons of medications from psychiatrist including Geodon, lorazepam, trazodone, gabapentin and Zoloft. I think, from neurological point of view, she has been taking more than what she needs for her bipolar disorder as she is not psychotic, she is not depressive at present. All these medications can be slowly tapered off if it is not needed. The patient will be followed during the hospitalization. Randy George MD
[2017-07-30 08:26] LABS: BASO % 0.4 % (0.0-2.0); EOS % 0.9 % (0.0-4.0); HEMOGLOBIN 12.4 g/dL (11.0-16.0); LYMPH # 1.8 K/uL (1.0-4.3); MEAN CELL VOLUME 76.3 fL (81.0-99.0); MEAN CORPUSCULAR HEMOGLOBIN 25.6 pg (27.0-31.0); MEAN CORPUSCULAR HGB CONC 33.6 g/dL (33.0-37.0); MEAN PLATELET VOLUME 7.9 fL (7.2-11.7); MONO # 0.3 K/uL (0.0-0.8); MONO % 9.4 % (0.0-10.0); NEUT # 1.3 K/uL (1.8-7.0); NEUT % 37.3 % (50.0-75.0); NRBC % 0.1 % (0.0-2.0); RBC 4.85 Mil/uL (3.80-5.20); RED CELL DISTRIBUTION WIDTH 14.3 % (11.5-14.5); WHITE BLOOD COUNT 3.5 K/uL (4.8-10.8)
[2017-07-30 08:53] LABS: ALB/GLOB RATIO 1.3 (1.0-2.1); ALBUMIN 3.9 g/dL (3.5-5.0); ALT/SGPT 23 U/L (9-52); AST/SGOT 25 U/L (14-36); BLOOD UREA NITROGEN 19 mg/dL (7-17); CALCIUM 8.2 mg/dl (8.6-10.4); GFR AFRICAN-AMERICAN > 60; GFR NON-AFRICAN AMERICAN > 60
[2017-07-30] MEDS: Bacitracin Ointment 30 GM TUBE TOP SCH (09:21)
--- NOTE | 2017-07-30 09:40 | CP.PCM.PN ---
Subjective - Date & Time of Evaluation Date of Evaluation: 07/30/17 Time of Evaluation: 11:29 - Subjective Subjective: PGY 2 Medicine Note- Dr. Julian Ramos's service Patient seen and examined in no apparent acute distress. Patient states that she went for a test earlier in the morning. Patient admits to headache and constipation. She denies chest pain, shortness of breath, nausea, vomiting or diarrhea at this time. Objective - Vital Signs/Intake and Output Vital Signs (last 24 hours): Temp Pulse Resp BP Pulse Ox 97.3 F L 60 18 152/78 H 95 07/30/17 07:05 07/30/17 07:05 07/30/17 07:05 07/30/17 07:05 07/30/17 07:05 Intake and Output: 07/30/17 07/30/17 06:59 18:59 Intake Total 360 Balance 360 - Medications Medications: Current Medications Acetaminophen/Butalbital/Caffeine (Fioricet) 1 tab PO TID PRN PRN Reason: UNKNOWN Last Admin: 07/30/17 05:49 Dose: 1 tab Amlodipine Besylate (Norvasc) 5 mg PO DAILY [facility] Last Admin: 07/30/17 09:20 Dose: 5 mg Aspirin (Aspirin Chewable) 81 mg PO DAILY [facility] Last Admin: 07/30/17 09:20 Dose: 81 mg Bacitracin (Bacitracin) 30 gm TOP DAILY [facility] Last Admin: 07/30/17 09:21 Dose: 1 appl Gabapentin (Neurontin) 400 mg PO BID [facility] Last Admin: 07/30/17 09:20 Dose: 400 mg Lorazepam (Ativan) 1 mg PO DAILY@0800 [facility] Last Admin: 07/30/17 08:20 Dose: 1 mg Meclizine HCl (Antivert) 25 mg PO Q6 [facility] Last Admin: 07/30/17 05:49 Dose: 25 mg Rivaroxaban (Xarelto) 20 mg PO DAILY [facility] Last Admin: 07/30/17 09:20 Dose: 20 mg Rosuvastatin Calcium (Crestor) 5 mg PO HS [facility] Last Admin: 07/29/17 21:25 Dose: 5 mg Sertraline HCl (Zoloft) 50 mg PO DAILY [facility] Last Admin: 07/30/17 09:20 Dose: 50 mg Trazodone HCl (Desyrel) 100 mg PO DAILY [facility] Last Admin: 07/30/17 09:20 Dose: 100 mg Ziprasidone (Geodon Cap) 20 mg PO BID [facility] Last Admin: 07/30/17 09:20 Dose: 20 mg - Labs Labs: 07/30/17 08:17 07/30/17 08:17 PT 21.3 SECONDS (9.7-12.2) H 07/28/17 08:05 INR 1.9 07/28/17 08:05 APTT 40 SECONDS (21-34) H 07/28/17 08:05 - Constitutional Appears: Non-toxic, No Acute Distress - Head Exam Head Exam: ATRAUMATIC - Eye Exam Eye Exam: EOMI, Normal appearance - ENT Exam ENT Exam: Mucous Membranes Moist - Neck Exam Neck Exam: Full ROM, Normal Inspection - Respiratory Exam Respiratory Exam: absent: Wheezes - Cardiovascular Exam Cardiovascular Exam: +S1, +S2. absent: JVD - GI/Abdominal Exam GI & Abdominal Exam: Soft, Normal Bowel Sounds - Extremities Exam Extremities Exam: Full ROM - Neurological Exam Neurological Exam: Alert, Awake, Oriented x3 - Psychiatric Exam Psychiatric exam: Normal Affect, Normal Mood - Skin Skin Exam: Dry, Normal Color, Warm Assessment and Plan - Assessment and Plan (Free Text) Assessment: Syncope Cardiology consulted- Dr. Trinidad- F/U recommendations EKG: Sinus ramone with some low voltage criteria, borderline LVH in lateral leads ; so ST segment elevations or depressions noted. Echo: normal left ventricular function (EF-55%) in April 2017 BP management- no beta blockers due to bradycardia Telemetry monitoring Troponin negative x3 Head CT negative MRI brain- no mass effect or edema; widening of cerebral sulci bilaterally with mild compensatory ventricular enlargement; mild small vessel ischemic changes noted Chest CT negative Bradycardic ~50-60bpm Stable Meclizine 25mg PO q6hrs for dizziness Fall Risk protocol F/U EEG results. 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 Will benefit from psych follow up services outpatient. Depression/anxiety Ativan 1mg PO daily Zoloft 50mg PO daily Trazodone 100mg PO daily Outpatient counseling services recommended Prophylactic Measure Xarelto Pepcid Case discussed with Dr. Ramos All management as per Dr. Ramos
--- NOTE | 2017-07-30 19:24 | CP.PCM.PN ---
Subjective - Date & Time of Evaluation Date of Evaluation: 07/30/17 Time of Evaluation: 13:40 - Subjective Subjective: clinically same Objective - Vital Signs/Intake and Output Vital Signs (last 24 hours): Temp Pulse Resp BP Pulse Ox 98 F 60 18 110/64 96 07/30/17 15:45 07/30/17 15:45 07/30/17 15:45 07/30/17 15:45 07/30/17 15:45 Intake and Output: 07/30/17 07/31/17 18:59 06:59 Intake Total 500 Balance 500 - Medications Medications: Current Medications Acetaminophen/Butalbital/Caffeine (Fioricet) 1 tab PO TID PRN PRN Reason: UNKNOWN Last Admin: 07/30/17 16:54 Dose: 1 tab Amlodipine Besylate (Norvasc) 5 mg PO DAILY [facility] Last Admin: 07/30/17 09:20 Dose: 5 mg Aspirin (Aspirin Chewable) 81 mg PO DAILY [facility] Last Admin: 07/30/17 09:20 Dose: 81 mg Bacitracin (Bacitracin) 30 gm TOP DAILY [facility] Last Admin: 07/30/17 09:21 Dose: 1 appl Gabapentin (Neurontin) 400 mg PO BID [facility] Last Admin: 07/30/17 17:00 Dose: 400 mg Lorazepam (Ativan) 1 mg PO DAILY@0800 [facility] Last Admin: 07/30/17 08:20 Dose: 1 mg Meclizine HCl (Antivert) 25 mg PO Q6 [facility] Last Admin: 07/30/17 17:00 Dose: 25 mg Rivaroxaban (Xarelto) 20 mg PO DAILY [facility] Last Admin: 07/30/17 09:20 Dose: 20 mg Rosuvastatin Calcium (Crestor) 5 mg PO HS [facility] Last Admin: 07/29/17 21:25 Dose: 5 mg Sertraline HCl (Zoloft) 50 mg PO DAILY [facility] Last Admin: 07/30/17 09:20 Dose: 50 mg Trazodone HCl (Desyrel) 100 mg PO DAILY [facility] Last Admin: 07/30/17 09:20 Dose: 100 mg Ziprasidone (Geodon Cap) 20 mg PO BID [facility] Last Admin: 07/30/17 17:00 Dose: 20 mg - Labs Labs: 07/30/17 08:17 07/30/17 08:17 PT 21.3 SECONDS (9.7-12.2) H 07/28/17 08:05 INR 1.9 07/28/17 08:05 APTT 40 SECONDS (21-34) H 07/28/17 08:05 - Constitutional Appears: Well - Head Exam Head Exam: ATRAUMATIC, NORMAL INSPECTION, NORMOCEPHALIC - Eye Exam Eye Exam: EOMI, Normal appearance, PERRL Pupil Exam: NORMAL ACCOMODATION, PERRL - ENT Exam ENT Exam: Mucous Membranes Moist, Normal Exam - Neck Exam Neck Exam: Full ROM, Normal Inspection. absent: Lymphadenopathy - Respiratory Exam Respiratory Exam: Decreased Breath Sounds - Cardiovascular Exam Cardiovascular Exam: REGULAR RHYTHM, +S1, +S2 - GI/Abdominal Exam GI & Abdominal Exam: Soft, Diminished Bowel Sounds - Rectal Exam Rectal Exam: Deferred Assessment and Plan (1) HTN (hypertension) Status: Acute (2) Sinus bradycardia Status: Acute (3) Syncope Status: Acute (4) Vertigo Status: Acute (5) Abdominal pain Status: Acute (6) Acute recurrent sphenoidal sinusitis Status: Acute (7) Adrenal adenoma Status: Acute (8) Anemia Status: Acute (9) Bradycardia Status: Acute (10) Bronchitis Status: Acute (11) Cellulitis Status: Acute (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, acute Status: Acute (13) Chest pain of unknown etiology Status: Acute (14) Constipation Status: Acute (15) Diarrhea Status: Acute (16) Fall Status: Acute (17) Headache Status: Acute (18) Low back pain Status: Acute (19) Migraine Status: Acute (20) Nausea Status: Acute (21) Skin irritation Status: Acute (22) Syncope Status: Acute (23) Syncope and collapse Status: Acute (24) UTI (urinary tract infection) Status: Acute (25) Vertigo Status: Acute (26) Vomiting Status: Acute
[2017-07-31 02:17] VITALS: TEMP 97.8
[2017-07-31] MEDS: Apap-Butalbital-Caffeine 325-50-40mg Tab PO PRN (02:37)
[2017-07-31] MEDS ORDERED: Bisacodyl 5mg EC Tab PO ONE (02:42)
[2017-07-31 06:53] LABS: BASO % 0.5 % (0.0-2.0); HEMOGLOBIN 11.5 g/dL (11.0-16.0); LYMPH # 1.7 K/uL (1.0-4.3); MEAN CORPUSCULAR HEMOGLOBIN 25.4 pg (27.0-31.0); MEAN CORPUSCULAR HGB CONC 33.4 g/dL (33.0-37.0); MEAN PLATELET VOLUME 8.1 fL (7.2-11.7); MONO # 0.3 K/uL (0.0-0.8); MONO % 7.7 % (0.0-10.0); NEUT # 1.3 K/uL (1.8-7.0); NEUT % 40.8 % (50.0-75.0); RBC 4.55 Mil/uL (3.80-5.20); RED CELL DISTRIBUTION WIDTH 14.4 % (11.5-14.5); WHITE BLOOD COUNT 3.3 K/uL (4.8-10.8)
[2017-07-31 07:02] LABS: ALB/GLOB RATIO 1.2 (1.0-2.1); ALBUMIN 3.7 g/dL (3.5-5.0); ALT/SGPT 22 U/L (9-52); AST/SGOT 21 U/L (14-36); BLOOD UREA NITROGEN 18 mg/dL (7-17); CALCIUM 8.3 mg/dl (8.6-10.4); GFR AFRICAN-AMERICAN > 60; GFR NON-AFRICAN AMERICAN > 60; MAGNESIUM 1.7 mg/dL (1.6-2.3)
[2017-07-31 08:14] VITALS: BP 157/78; PULSE 54; RESP 18; O2SAT 99
--- NOTE | 2017-07-31 08:59 | CP.PCM.PN ---
Subjective - Date & Time of Evaluation Date of Evaluation: 07/31/17 Time of Evaluation: 08:29 - Subjective Subjective: PGY 2 Medicine Note- Dr. Julian Ramos's service Patient seen and examined in no acute distress. Patient still complaining of headaches at this time. Patient states that she woke up in the middle of the night with a headache. She has a good appetite. She denies chest pain, palpitations, nausea or vomiting at this time. Objective - Vital Signs/Intake and Output Vital Signs (last 24 hours): Temp Pulse Resp BP Pulse Ox 97.8 F 54 L 18 157/78 H 99 07/31/17 07:25 07/31/17 07:25 07/31/17 07:25 07/31/17 07:25 07/31/17 07:25 Intake and Output: 07/31/17 07/31/17 06:59 18:59 Intake Total 500 Balance 500 - Medications Medications: Current Medications Acetaminophen/Butalbital/Caffeine (Fioricet) 1 tab PO TID PRN PRN Reason: UNKNOWN Last Admin: 07/31/17 02:37 Dose: 1 tab Amlodipine Besylate (Norvasc) 5 mg PO DAILY [facility] Last Admin: 07/30/17 09:20 Dose: 5 mg Aspirin (Aspirin Chewable) 81 mg PO DAILY [facility] Last Admin: 07/30/17 09:20 Dose: 81 mg Bacitracin (Bacitracin) 30 gm TOP DAILY [facility] Last Admin: 07/30/17 09:21 Dose: 1 appl Docusate Sodium (Colace) 100 mg PO DAILY [facility] Gabapentin (Neurontin) 400 mg PO BID [facility] Last Admin: 07/30/17 17:00 Dose: 400 mg Lorazepam (Ativan) 1 mg PO DAILY@0800 [facility] Last Admin: 07/31/17 08:32 Dose: 1 mg Meclizine HCl (Antivert) 25 mg PO Q6 [facility] Last Admin: 07/31/17 05:40 Dose: 25 mg Rivaroxaban (Xarelto) 20 mg PO DAILY [facility] Last Admin: 07/30/17 09:20 Dose: 20 mg Rosuvastatin Calcium (Crestor) 5 mg PO HS [facility] Last Admin: 07/30/17 21:37 Dose: 5 mg Sertraline HCl (Zoloft) 50 mg PO DAILY [facility] Last Admin: 07/30/17 09:20 Dose: 50 mg Trazodone HCl (Desyrel) 100 mg PO DAILY [facility] Last Admin: 07/30/17 09:20 Dose: 100 mg Ziprasidone (Geodon Cap) 20 mg PO BID [facility] Last Admin: 07/30/17 17:00 Dose: 20 mg - Labs Labs: 07/31/17 06:41 07/31/17 06:41 PT 21.3 SECONDS (9.7-12.2) H 07/28/17 08:05 INR 1.9 07/28/17 08:05 APTT 40 SECONDS (21-34) H 07/28/17 08:05 - Constitutional Appears: Non-toxic, No Acute Distress - Head Exam Head Exam: ATRAUMATIC - Eye Exam Eye Exam: EOMI, Normal appearance Pupil Exam: NORMAL ACCOMODATION - ENT Exam ENT Exam: Mucous Membranes Moist - Neck Exam Neck Exam: Full ROM, Normal Inspection - Respiratory Exam Respiratory Exam: NORMAL BREATHING PATTERN - Cardiovascular Exam Cardiovascular Exam: +S1, +S2. absent: Tachycardia, JVD - GI/Abdominal Exam GI & Abdominal Exam: Soft - Extremities Exam Extremities Exam: Full ROM, Normal Capillary Refill. absent: Joint Swelling, Pedal Edema, Tenderness - Back Exam Back Exam: Full ROM - Neurological Exam Neurological Exam: Alert, Awake, Oriented x3 - Psychiatric Exam Psychiatric exam: Normal Affect, Normal Mood - Skin Skin Exam: Normal Color, Warm Assessment and Plan - Assessment and Plan (Free Text) Assessment: Syncope Cardiology consulted- Dr. Trinidad- patient to follow up outpatient. EKG: Sinus ramone with some low voltage criteria, borderline LVH in lateral leads ; so ST segment elevations or depressions noted. Echo: normal left ventricular function (EF-55%) in April 2017 BP management- no beta blockers due to bradycardia Telemetry monitoring Troponin negative x3 Head CT negative MRI brain- no mass effect or edema; widening of cerebral sulci bilaterally with mild compensatory ventricular enlargement; mild small vessel ischemic changes noted Chest CT negative Bradycardic ~50-60bpm Stable Meclizine 25mg PO q6hrs for dizziness Fall Risk protocol F/U EEG results in the office tomorrow. 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 Will benefit from psych follow up services outpatient. Depression/anxiety Ativan 1mg PO daily Zoloft 50mg PO daily Trazodone 100mg PO daily Outpatient counseling services recommended Prophylactic Measure Xarelto Pepcid Case discussed with Dr. Ramos All management as per Dr. Ramos Discharge Instructions Patient is medically stable for discharge home. Patient has been instructed to follow up with Dr. Julian Ramos in his office outpatient tomorrow. Patient will likely end up needing an endoscopy (a special imaging study to look down her esophagus into her stomach). Patient should follow up with Carnival Worker, Dr. Trinidad within two weeks. Patient may continue home medications. The following medications Trazodone, Sertraline and Geodon are cautioned to be used. Patient needs to follow up with the doctor that originally prescribed those medications, because she may not necessarily need to be on so many medications. Patient will be discharged home with protonix. If symptoms return, go to the emergency room. Instructions explained to patient who is aware.
[2017-07-31] MEDS: Bacitracin Ointment 30 GM TUBE TOP SCH (09:57)
--- NOTE | 2017-08-01 10:54 | EEG ---
DATE: 07/30/2017 This is a 16-channel electroencephalogram of awake and drowsy adult. During the study, photic stimulation was performed. Hyperventilation was not performed. The resting electroencephalogram consists of 30 to 40 microvolts alpha activity repeatedly seen at parietal and occipital leads. Anteriorly, fast activity superimposed with 2 to 3 Hz delta activities seen at frontal and the central leads. Intermittent movement as well as muscle artifact contaminated the background rhythm. Photic stimulation did not evoke driving response noted at 2 to 20 Hz. IMPRESSION: This is a normal electroencephalogram of awake and a drowsy adult. During the study, neither electroencephalographic, paroxysmal activities nor focal slowing noted. Randy George MD
== END 2017-07-31 18:30 | disposition home or self-care (01) | DRG 312 ==
LOC: C.ER 07:18 → C.9E 09:33 → C.6T 10:07
PROVIDERS: ADMIT Internal Medicine Nephrology; ATTEND Internal Medicine Nephrology
DX: R55 Syncope and collapse (principal); G08 Intracranial and intraspinal phlebitis and thrombophlebitis; N39.0 Urinary tract infection, site not specified; L03.90 Cellulitis, unspecified; F41.9 Anxiety disorder, unspecified; F20.9 Schizophrenia, unspecified; E78.00 Pure hypercholesterolemia, unspecified; F31.9 Bipolar disorder, unspecified; J45.909 Unspecified asthma, uncomplicated; I10 Essential (primary) hypertension; R00.1 Bradycardia, unspecified; J01.31 Acute recurrent sphenoidal sinusitis; D35.00 Benign neoplasm of unspecified adrenal gland; D64.9 Anemia, unspecified; J20.9 Acute bronchitis, unspecified; R07.9 Chest pain, unspecified; K59.00 Constipation, unspecified; G43.909 Migraine, unspecified, not intractable, without status migrainosus

== ENCOUNTER 2017-11-23 13:30 | Emergency (ER) | payer MEDICARE, MEDICAID ==
[2017-11-23 13:30] VITALS: BMI 29.0
[2017-11-23] MEDS ORDERED: Sodium Chloride 0.9% 1,000 ML IV ONE (14:04)
[2017-11-23] MEDS ORDERED: Sodium Chloride 0.9% 1,000 ML ONE (14:28)
[2017-11-23 14:48] LABS: BASO # 0.1 K/uL (0.0-0.2); BASO % 2.1 % (0.0-2.0); EOS % 0.3 % (0.0-4.0); LYMPH # 1.8 K/uL (1.0-4.3); LYMPH % 39.3 % (20.0-40.0); MEAN CORPUSCULAR HEMOGLOBIN 25.4 pg (27.0-31.0); MEAN CORPUSCULAR HGB CONC 34.3 g/dL (33.0-37.0); MEAN PLATELET VOLUME 8.2 fL (7.2-11.7); MONO # 0.4 K/uL (0.0-0.8); MONO % 8.6 % (0.0-10.0); NEUT # 2.3 K/uL (1.8-7.0); NEUT % 49.7 % (50.0-75.0); NRBC % 0.1 % (0.0-2.0); RBC 4.72 Mil/uL (3.80-5.20); RED CELL DISTRIBUTION WIDTH 14.5 % (11.5-14.5); WHITE BLOOD COUNT 4.6 K/uL (4.8-10.8)
[2017-11-23 14:53] LABS: SQUAMOUS EPITHIAL < 1 /hpf (0-5); URINE BILIRUBIN NEGATIVE (NEGATIVE); URINE BLOOD 1+ (NEGATIVE); URINE CLARITY Clear (Clear); URINE COLOR Straw (YELLOW); URINE GLUCOSE (UA) NORMAL (Normal); URINE LEUKOCYTE ESTERASE TRACE Leu/uL (Negative); URINE PROTEIN NEGATIVE (NEGATIVE); URINE UROBILINOGEN NORMAL mg/dL (0.2-1.0)
[2017-11-23 15:05] LABS: ALB/GLOB RATIO 1.2 (1.0-2.1); ALBUMIN 4.3 g/dL (3.5-5.0); ALT/SGPT 16 U/L (9-52); AST/SGOT 26 U/L (14-36); BLOOD UREA NITROGEN 10 mg/dL (7-17); CALCIUM 9.3 mg/dl (8.6-10.4); GFR AFRICAN-AMERICAN > 60; GFR NON-AFRICAN AMERICAN > 60; LIPASE 260 U/L (23-300)
--- NOTE | 2017-11-23 15:08 | C.PDOC ---
History Of Present Illness 67yo female, presents to ED with complaints of nausea, vomiting and diarrhea, for the past day. Patient states she was sitting near someone with gastroenteritis yesterday. She also denies eating any heavy foods yesterday and denies any PO intake today. She has no other medical complaints. Time Seen by Provider: 11/23/17 13:55 Chief Complaint (Nursing): Abdominal Pain Past Medical History Vital Signs: Last Vital Signs Temp 98.2 F 11/23/17 16:00 Pulse 72 11/23/17 16:00 Resp 16 11/23/17 16:00 BP 151/79 H 11/23/17 16:00 Pulse Ox 97 11/26/17 15:04 - Medical History PMH: Anxiety, Asthma, Bipolar Disorder, Depression, HTN, Hypercholesterolemia, Schizophrenia Denies: Chronic Kidney Disease Surgical History: Endoscopy Family History: States: No Known Family Hx - Social History Hx Alcohol Use: No Hx Substance Use: No - Immunization History Hx Tetanus Toxoid Vaccination: Yes Hx Influenza Vaccination: Yes Hx Pneumococcal Vaccination: Yes (07/2015) ED Course And Treatment - Laboratory Results Result Diagrams: 11/23/17 14:43 11/23/17 14:43 Lab Interpretation: Normal (LFT's wnl, UA neg.) O2 Sat by Pulse Oximetry: 97 - Radiology CXR: Interpreted by Me CXR Interpretation: Yes: No Acute Disease - Other Rad abd x 2 X-Ray: Interpreted by Me (normal stool/gas) Reevaluation Time: 15:15 Reassessment Condition: Improved Medical Decision Making Medical Decision Making: Impression: Abdominal pain Prior records reviewed, everett has had many prior evaluations including a CT Head in August, CT Chest in July and [address] Abdomen and Pelvis studies. Plan: -- Toradol 30mg IVP -- IV Fluids -- Protonix 40mg IVP -- Zofran 4mg IVP -- XR Abdomen ? viral vs food-born gastroenteritis Benign exam, presentation, labs/abd films Disposition Doctor Will See Patient In The: Office Counseled Patient/Family Regarding: Studies Performed, Diagnosis - Disposition Referrals: Jr Mcdaniel MD [Staff Provider] - Disposition: HOME/ ROUTINE Disposition Time: 15:16 Condition: GOOD Additional Instructions: bland BRAT diet today: follow-up with your PMD as needed Workup today is NORMAL Instructions: Gastroenteritis (DC) Forms: Delectable (Spanish) - Clinical Impression Clinical Impression: Gastroenteritis - Scribe Statement The provider has reviewed the documentation as recorded by the Scribe (Sonal Zamora) Provider Attestation: All medical record entries made by the Scribe were at my direction and personally dictated by me. I have reviewed the chart and agree that the record accurately reflects my personal performance of the history, physical exam, medical decision making, and the department course for this patient. I have also personally directed, reviewed, and agree with the discharge instructions and disposition.
[2017-11-23 16:01] VITALS: BP 151/79; PULSE 72; RESP 16; TEMP 98.2
--- NOTE | 2017-11-23 17:30 | RAD ---
PROCEDURE: Radiographs of the chest and abdomen (obstructive series) HISTORY: Abdominal pain COMPARISON: No prior. TECHNIQUE: AP radiograph of the chest, with upright and supine radiographs of the abdomen. FINDINGS: CHEST: Poor inspiration with low lung volumes, crowded bronchovascular markings and bibasilar atelectasis left greater than right. . Elevation right hemidiaphragm mild possibly due to eventration or scalloping. Suspect minor biapical pleural thickening. Heart is enlarged. Aorta ectatic and uncoiled. ABDOMEN AND PELVIS: No evidence of free intraperitoneal air seen under the diaphragmatic surfaces. Nonobstructive/nonspecific bowel gas pattern. Note is made of a mild levoscoliosis centered at the thoracolumbar junction on erect view. IMPRESSION: Low lung volumes with crowded bronchovascular markings and bibasilar atelectasis left greater than right. Cardiomegaly. No evidence of free intraperitoneal air. No evidence of acute mechanical bowel obstruction
[2017-11-26 15:05] VITALS: O2SAT 97
== END 2017-11-23 16:00 | disposition home or self-care (01) ==
LOC: C.ER 13:30
DX: K52.9 Noninfective gastroenteritis and colitis, unspecified (principal)
CPT/HCPCS: 74022; 80053; 81001; 83690; 85025; 96361; 96374; 96375; 99284; C9113; J1885; J2405; J7040

== ENCOUNTER 2018-02-08 03:25 | Emergency (ER) | payer MEDICARE, MEDICAID ==
[2018-02-08 03:25] VITALS: BMI 29.0
[2018-02-08 04:09] VITALS: BP 135/75; PULSE 74; RESP 20; TEMP 98; O2SAT 96
--- NOTE | 2018-02-08 04:55 | C.PDOC ---
History Of Present Illness 68 year old female is brought to the ED by ambulance for evaluation s/o head injury. Patient reports she fell at home while intoxicated, patient states " I was celebrating my birthday". Patient denies SI/HI, hallucinations, fever, chills, nausea, vomiting, dizziness, weakness, numbness. Time Seen by Provider: 02/08/18 03:26 Chief Complaint (Nursing): Substance Abuse History Per: Patient, EMS History/Exam Limitations: intoxication Onset/Duration Of Symptoms: Hrs Current Symptoms Are (Timing): Still Present Suicide/Self Injury Attempted (Context): None Modifying Factor(s): Alcohol Associated Symptoms: denies: Depression, Suicidal Thoughts, Suicidal Plan Involuntary Hold By: None Recent travel outside of the [place]: No Additional History Per: Patient, EMS Past Medical History Reviewed: Historical Data, Nursing Documentation, Vital Signs Vital Signs: Last Vital Signs Temp 98 F 02/08/18 04:04 Pulse 74 02/08/18 04:04 Resp 20 02/08/18 04:04 BP 135/75 02/08/18 04:04 Pulse Ox 96 02/08/18 05:08 - Medical History PMH: Anxiety, Asthma, Bipolar Disorder, Depression, HTN, Hypercholesterolemia, Schizophrenia Denies: Chronic Kidney Disease Surgical History: Endoscopy Family History: States: Unknown Family Hx - Social History Hx Alcohol Use: Yes Hx Substance Use: No - Immunization History Hx Tetanus Toxoid Vaccination: Yes Hx Influenza Vaccination: Yes Hx Pneumococcal Vaccination: Yes (07/2015) Review Of Systems Constitutional: Negative for: Fever, Chills Eyes: Negative for: Vision Change Cardiovascular: Negative for: Chest Pain, Palpitations Respiratory: Negative for: Cough, Shortness of Breath Gastrointestinal: Negative for: Nausea, Vomiting, Abdominal Pain Neurological: Positive for: Headache. Negative for: Weakness, Numbness, Dizziness Physical Exam - Physical Exam Appears: Non-toxic, No Acute Distress, Other (intoxicated) Skin: Normal Color, Warm, Dry Head: Atraumatic, Normacephalic, No Abrasion, No Laceration Eye(s): bilateral: Normal Inspection, PERRL, EOMI Oral Mucosa: Moist Neck: Normal ROM, No Midline Cervical Tenderness, No Step Off Deformity, Supple Chest: Symmetrical Cardiovascular: Rhythm Regular Respiratory: Normal Breath Sounds, No Rales, No Rhonchi, No Wheezing Gastrointestinal/Abdominal: Soft, No Tenderness, No Guarding, No Rebound Back: No Vertebral Tenderness Extremity: Normal ROM, No Tenderness, No Swelling Neurological/Psych: Oriented x3, Normal Speech, Normal Motor, Normal Sensation Gait: Steady ED Course And Treatment O2 Sat by Pulse Oximetry: 96 (ON RA) Pulse Ox Interpretation: Normal - CT Scan/US CT head Other Rad Studies (CT/US): Read By Radiologist, Radiology Report Reviewed CT/US Interpretation: EXAM: CT Head Without Intravenous Contrast. CLINICAL HISTORY: 68 years old, female; Pain; Headache; Patient HX: 09-09-17; Additional info: Head injury. TECHNIQUE: Axial computed tomography images of the head/ brain without intravenous contrast. All CT scans at. this facility use at least one of these dose optimization techniques: automated exposure control; mA. and/or kV adjustment per patient size (includes targeted exams where dose is matched to clinical. indication); or iterative reconstruction. 132 images are submitted. Axial images are submitted in. brain and bone windows. COMPARISON: CT - HEAD W/WO CONTRAST 2017-09-09 14:18. FINDINGS: Brain: Cerebral and cerebellar volume loss. Patchy hypodensity is seen in the periventricular and. subcortical white matter. No hemorrhage. Ventricles: Unremarkable. No ventriculomegaly. Bones/joints: Unremarkable. No acute fracture. Soft tissues: Unremarkable. Vasculature: There is small venous angioma left posterior frontoparietal deep white matter. Vascular calcifications. Sinuses: Unremarkable. No acute sinusitis. Mastoid air cells: Unremarkable. No mastoid effusion. Orbits: The globe and lens are intact. IMPRESSION: No evidence of an acute intracranial hemorrhage, midline shift or mass effect is identified. Thank you for allowing us to participate in the care of your patient. Dictated and Authenticated by: Jayson Morrow MD. 5:05 AM Eastern Time ([place] & [place]) Progress Note: Plan: - CT head Disposition Counseled Patient/Family Regarding: Studies Performed, Diagnosis, Need For Followup, Rx Given - Disposition Referrals: [facility] [Outside] Disposition: HOME/ ROUTINE Disposition Time: 06:35 Condition: STABLE Additional Instructions: FOLLOW UP WITH YOUR DOCTOR/CLINIC IN 1-2 DAYS RETURN TO ER IF SYMPTOMS WORSEN Instructions: Closed Head Injury (DC), Alcohol Abuse and Alcoholism (DC) Forms: NMRKT (Divehi) Print Language: URDU - POA Present On Arrival: None - Clinical Impression Clinical Impression: Closed head injury, Alcohol intoxication - Scribe Statement The provider has reviewed the documentation as recorded by the Scribe Agapito Chi All medical record entries made by the Scribe were at my direction and personally dictated by me. I have reviewed the chart and agree that the record accurately reflects my personal performance of the history, physical exam, medical decision making, and the department course for this patient. I have also personally directed, reviewed, and agree with the discharge instructions and disposition.
--- NOTE | 2018-02-08 06:29 | CT ---
Date of service: 02/08/2018 PROCEDURE: CT HEAD WITHOUT CONTRAST. HISTORY: HEAD INJURY COMPARISON: 09/09/2017 TECHNIQUE: Axial computed tomography images were obtained through the head/brain without intravenous contrast. Radiation dose: Total exam DLP = 894 mGy-cm. This CT exam was performed using one or more of the following dose reduction techniques: Automated exposure control, adjustment of the mA and/or kV according to patient size, and/or use of iterative reconstruction technique. FINDINGS: HEMORRHAGE: No intracranial hemorrhage. Probable small venous angioma in the left posterior frontoparietal deep white matter. Vascular calcifications. BRAIN: Cerebral and cerebellar volume loss. Scattered focal lucencies in the subcortical and periventricular white matter suggestive for chronic microvascular ischemic change. VENTRICLES: Unremarkable. No hydrocephalus. CALVARIUM: Unremarkable. PARANASAL SINUSES: Unremarkable as visualized. No significant inflammatory changes. MASTOID AIR CELLS: Unremarkable as visualized. No inflammatory changes. OTHER FINDINGS: None. IMPRESSION: No acute intracranial abnormality. Cerebral and cerebellar volume loss. Chronic microvascular ischemic change. Probable small venous angioma in the left posterior frontoparietal deep white matter. Correlation with MRI may be helpful if clinically indicated. These findings were preliminarily reported at 5:05 a.m. on 02/08/[address] Jayson Morrow from virtual [employer].
== END 2018-02-08 07:01 | disposition home or self-care (01) ==
LOC: C.ER 03:25
DX: F10.129 Alcohol abuse with intoxication, unspecified (principal); S09.90XA Unspecified injury of head, initial encounter; W19.XXXA Unspecified fall, initial encounter; Y92.009 Unspecified place in unspecified non-institutional (private) residence as the place of occurrence of the external cause; E78.00 Pure hypercholesterolemia, unspecified; I10 Essential (primary) hypertension; F20.9 Schizophrenia, unspecified

== ENCOUNTER 2018-02-20 08:52 | Observation (INO) | payer MEDICARE, MEDICAID ==
[2018-02-20 08:52] VITALS: BMI 29.0
[2018-02-20] MEDS ORDERED: Aspirin 325 mg EC Tablets PO STA (09:13)
--- NOTE | 2018-02-20 09:18 | C.PDOC ---
History Of Present Illness 68 y/o female presents to the ER complaining of chest pain which has been present for the past 3 days. Patient states that she has pain in the mid chest and she describes the pain as pressure. Patient reports that she has associated mild SOB. Denies having cough, fever, and chillls. Time Seen by Provider: 02/20/18 08:59 Chief Complaint (Nursing): Chest Pain History Per: Patient History/Exam Limitations: no limitations Onset/Duration Of Symptoms: Days Current Symptoms Are (Timing): Still Present Severity: Moderate Quality: Pressure Past Medical History Reviewed: Historical Data, Nursing Documentation, Vital Signs Vital Signs: Last Vital Signs Temp 97.5 F L 02/20/18 11:15 Pulse 70 02/20/18 11:15 Resp 16 02/20/18 11:15 BP 160/73 H 02/20/18 11:15 Pulse Ox 99 02/20/18 12:21 - Medical History PMH: Anxiety, Asthma, Bipolar Disorder, Depression, HTN, Hypercholesterolemia, Schizophrenia Denies: Chronic Kidney Disease Surgical History: Endoscopy Family History: States: No Known Family Hx - Social History Hx Alcohol Use: Yes Hx Substance Use: No - Immunization History Hx Tetanus Toxoid Vaccination: Yes Hx Influenza Vaccination: Yes Hx Pneumococcal Vaccination: Yes (07/2015) Review Of Systems Except As Marked, All Systems Reviewed And Found Negative. Constitutional: Negative for: Fever, Chills Cardiovascular: Positive for: Chest Pain Respiratory: Positive for: Shortness of Breath. Negative for: Cough Physical Exam - Physical Exam Appears: Non-toxic, No Acute Distress Skin: Normal Color, Warm, Dry Head: Atraumatic, Normacephalic Eye(s): bilateral: Normal Inspection Nose: Normal Oral Mucosa: Moist Neck: Supple Chest: Symmetrical Cardiovascular: Rhythm Regular Respiratory: Normal Breath Sounds, No Rales, No Rhonchi, No Wheezing Gastrointestinal/Abdominal: Normal Exam, Soft, No Tenderness, No Guarding, No Rebound Neurological/Psych: Oriented x3, Normal Speech ED Course And Treatment - Laboratory Results Result Diagrams: 02/20/18 09:33 02/20/18 09:33 ECG: Interpreted By Me, Viewed By Me ECG Rhythm: Sinus Rhythm Interpretation Of ECG: NSR with some LVH and no acute changes Rate From EC O2 Sat by Pulse Oximetry: 99 (RA) Pulse Ox Interpretation: Normal - Radiology CXR: Interpreted by Me, Viewed By Me CXR Interpretation: Yes: No Acute Disease Progress Note: Labs, UA, EKG, and CXR ordered and reviewed. Patient treated with Aspirin PO. Case discussed with Dr. Andrés Ramos. Patient will be admitted to [facility] under the service of . Disposition - Disposition Disposition: HOSPITALIZED Disposition Time: 11:51 Condition: FAIR - Clinical Impression Clinical Impression: Chest pain - PA / METROLOGY SPECIALIST / Resident Statement MD/DO has reviewed & agrees with the documentation as recorded. - Scribe Statement The provider has reviewed the documentation as recorded by the Scribe [facility] Provider Attestation All medical record entries made by the Scribe were at my direction and personally dictated by me. I have reviewed the chart and agree that the record accurately reflects my personal performance of the history, physical exam, medical decision making, and the department course for this patient. I have also personally directed, reviewed, and agree with the discharge instructions and disposition. Decision To Admit - Pt Status Changed To: Hospital Disposition Of: Observation - . Bed Request Type: Telemetry Admitting Physician: Dennis Ramos Patient Diagnosis: Chest pain
[2018-02-20 09:40] LABS: BASO # 0.1 K/uL (0.0-0.2); BASO % 1.5 % (0.0-2.0); EOS % 0.8 % (0.0-4.0); HEMOGLOBIN 12.9 g/dL (11.0-16.0); LYMPH # 1.9 K/uL (1.0-4.3); LYMPH % 32.2 % (20.0-40.0); MEAN CELL VOLUME 75.2 fL (81.0-99.0); MEAN CORPUSCULAR HEMOGLOBIN 25.2 pg (27.0-31.0); MEAN CORPUSCULAR HGB CONC 33.5 g/dL (33.0-37.0); MEAN PLATELET VOLUME 8.3 fL (7.2-11.7); MONO # 0.4 K/uL (0.0-0.8); MONO % 7.1 % (0.0-10.0); NEUT # 3.5 K/uL (1.8-7.0); NEUT % 58.4 % (50.0-75.0); NRBC % 0.1 % (0.0-2.0); RBC 5.1 Mil/uL (3.80-5.20); RED CELL DISTRIBUTION WIDTH 15.4 % (11.5-14.5); WHITE BLOOD COUNT 5.9 K/uL (4.8-10.8)
--- NOTE | 2018-02-20 09:44 | RAD ---
Date of service: 02/20/2018 PROCEDURE: CHEST RADIOGRAPH, 1 VIEW HISTORY: chest pain COMPARISON: 05/04/2017 FINDINGS: LUNGS: Clear. PLEURA: No pneumothorax or pleural fluid seen. CARDIOVASCULAR: Normal. OSSEOUS STRUCTURES: No significant abnormalities. VISUALIZED UPPER ABDOMEN: Normal. OTHER FINDINGS: None. IMPRESSION: No active disease.
[2018-02-20 09:54] LABS: ALB/GLOB RATIO 1.4 (1.0-2.1); ALBUMIN 4.7 g/dL (3.5-5.0); CALCIUM 9.6 mg/dl (8.6-10.4); GFR AFRICAN-AMERICAN > 60; GFR NON-AFRICAN AMERICAN > 60
[2018-02-20 09:55] LABS: PROTHROMBIN TIME 10.8 SECONDS (9.7-12.2)
[2018-02-20 10:00] LABS: ALT/SGPT 25 U/L (9-52); AST/SGOT 26 U/L (14-36); BLOOD UREA NITROGEN 15 mg/dL (7-17)
[2018-02-20 10:06] LABS: CK-MB 1.48 ng/mL (0.0-3.38)
[2018-02-20 14:46] LABS: SQUAMOUS EPITHIAL 1 /hpf (0-5); URINE BILIRUBIN NEGATIVE (NEGATIVE); URINE BLOOD NEGATIVE (NEGATIVE); URINE CLARITY Clear (Clear); URINE COLOR Straw (YELLOW); URINE GLUCOSE (UA) NORMAL (Normal); URINE LEUKOCYTE ESTERASE 2+ Leu/uL (Negative); URINE PROTEIN NEGATIVE (NEGATIVE); URINE UROBILINOGEN NORMAL mg/dL (0.2-1.0)
[2018-02-20 16:09] VITALS: RESP 20
--- NOTE | 2018-02-20 19:16 | CP.PCM.HP ---
Past Patient History - Infectious Disease Hx of Infectious Diseases: None - Past Medical History & Family History Past Medical History?: Yes - Past Social History Smoking Status: Never Smoked - CARDIAC Hx Hypercholesterolemia: Yes Hx Hypertension: Yes - PULMONARY Hx Asthma: Yes - NEUROLOGICAL Hx Neurological Disorder: No Other/Comment: slow to comprehend easily distracted - HEENT Hx HEENT Problems: No - RENAL Hx Chronic Kidney Disease: No - ENDOCRINE/METABOLIC Hx Endocrine Disorders: No - HEMATOLOGICAL/ONCOLOGICAL Hx Blood Disorders: No - INTEGUMENTARY Hx Dermatological Problems: No - MUSCULOSKELETAL/RHEUMATOLOGICAL Hx Falls: Yes - GASTROINTESTINAL Hx Gastrointestinal Disorders: No - GENITOURINARY/GYNECOLOGICAL Hx Genitourinary Disorders: No - PSYCHIATRIC Hx Anxiety: Yes Hx Bipolar Disorder: Yes Hx Depression: Yes Hx Schizophrenia: Yes Hx Substance Use: No - SURGICAL HISTORY Hx Surgeries: No - ANESTHESIA Hx Anesthesia: Yes Hx Anesthesia Reactions: No Hx Malignant Hyperthermia: No Meds Allergies/Adverse Reactions: Allergies Allergy/AdvReac Type Severity Reaction Status Date / Time Penicillins Allergy Intermediate RASH Verified 02/20/18 08:58 Physical Exam - Constitutional Appears: Well - Head Exam Head Exam: ATRAUMATIC, NORMAL INSPECTION, NORMOCEPHALIC - Eye Exam Eye Exam: EOMI, Normal appearance, PERRL Pupil Exam: NORMAL ACCOMODATION, PERRL - ENT Exam ENT Exam: Mucous Membranes Moist, Normal Exam - Neck Exam Neck exam: Positive for: Normal Inspection - Respiratory Exam Respiratory Exam: Decreased Breath Sounds - Cardiovascular Exam Cardiovascular Exam: REGULAR RHYTHM, +S1, +S2 - GI/Abdominal Exam GI & Abdominal Exam: Diminished Bowel Sounds, Soft - Rectal Exam Rectal Exam: Deferred Results - Vital Signs Recent Vital Signs: Last Vital Signs Temp 97.1 F L 02/20/18 16:32 Pulse 60 02/20/18 16:32 Resp 20 02/20/18 16:32 BP 160/73 H 02/20/18 16:32 Pulse Ox 97 02/20/18 16:32 - Labs Result Diagrams: 02/20/18 09:33 02/20/18 09:33 Labs: Laboratory Results - last 24 hr 02/20/18 02/20/18 02/20/18 09:33 09:33 09:33 WBC 5.9 RBC 5.10 Hgb 12.9 Hct 38.3 MCV 75.2 L MCH 25.2 L MCHC 33.5 RDW 15.4 H Plt Count 210 MPV 8.3 Neut % (Auto) 58.4 Lymph % (Auto) 32.2 [place] % (Auto) 7.1 Eos % (Auto) 0.8 Baso % (Auto) 1.5 Neut # (Auto) 3.5 Lymph # (Auto) 1.9 [place] # (Auto) 0.4 Eos # (Auto) 0.0 Baso # (Auto) 0.1 PT 10.8 INR 1.0 APTT 23 Sodium 141 Potassium 4.4 Chloride 102 Carbon Dioxide 23 Anion Gap 21 H BUN 15 Creatinine 0.7 Est GFR ( Amer) > 60 Est GFR (Non-Af Amer) > 60 Random Glucose 92 Calcium 9.6 Total Bilirubin 0.8 AST 26 ALT 25 Alkaline Phosphatase 71 Total Creatine Kinase 155 H CK-MB (Mass) 1.48 Troponin I < 0.0120 Total Protein 8.0 Albumin 4.7 Globulin 3.3 Albumin/Globulin Ratio 1.4 Urine Color Urine Clarity Urine pH Ur Specific [place] Urine Protein Urine Glucose (UA) Urine Ketones Urine Blood Urine Nitrate Urine Bilirubin Urine Urobilinogen Ur Leukocyte Esterase Urine WBC (Auto) Urine RBC (Auto) Ur Squamous Epith Cells 02/20/18 14:40 WBC RBC Hgb Hct MCV MCH MCHC RDW Plt Count MPV Neut % (Auto) Lymph % (Auto) [place] % (Auto) Eos % (Auto) Baso % (Auto) Neut # (Auto) Lymph # (Auto) [place] # (Auto) Eos # (Auto) Baso # (Auto) PT INR APTT Sodium Potassium Chloride Carbon Dioxide Anion Gap BUN Creatinine Est GFR ( Amer) Est GFR (Non-Af Amer) Random Glucose Calcium Total Bilirubin AST ALT Alkaline Phosphatase Total Creatine Kinase CK-MB (Mass) Troponin I Total Protein Albumin Globulin Albumin/Globulin Ratio Urine Color Straw Urine Clarity Clear Urine pH 7.0 Ur Specific [place] 1.008 Urine Protein Negative Urine Glucose (UA) Normal Urine Ketones Negative Urine Blood Negative Urine Nitrate Negative Urine Bilirubin Negative Urine Urobilinogen Normal Ur Leukocyte Esterase 2+ H Urine WBC (Auto) 15 H Urine RBC (Auto) 1 Ur Squamous Epith Cells 1
[2018-02-20 22:01] LABS: CK-MB 0.85 ng/mL (0.0-3.38)
[2018-02-21 05:10] LABS: CK-MB 0.85 ng/mL (0.0-3.38)
[2018-02-21] MEDS: Pantoprazole 40 mg EC Tab PO SCH (10:33)
[2018-02-21] MEDS: Bisoprolol-HCTZ 10-6.25 mg Tab PO SCH (10:33)
[2018-02-21] MEDS: Enoxaparin 40 mg Syringe SC SCH (10:34)
[2018-02-21 11:25] LABS: CK-MB 0.79 ng/mL (0.0-3.38)
--- NOTE | 2018-02-21 15:16 | CP.PCM.CON ---
History of Present Illness - History of Present Illness History of Present Illness: CC: Chest pain HPI: 68 year old female with pmx of HTN. She is reporting several day onset of chest pain. Pain is in the right sternal border. Pain is sharp in character. pain is occuring a random context. serial trop is negative. Review of Systems - Review of Systems All systems: reviewed and no additional remarkable complaints except Past Patient History - Infectious Disease Hx of Infectious Diseases: None - Past Medical History & Family History Past Medical History?: Yes - Past Social History Smoking Status: Never Smoked - CARDIAC Hx Hypercholesterolemia: Yes Hx Hypertension: Yes - PULMONARY Hx Asthma: Yes - NEUROLOGICAL Hx Neurological Disorder: No Other/Comment: slow to comprehend easily distracted - HEENT Hx HEENT Problems: No - RENAL Hx Chronic Kidney Disease: No - ENDOCRINE/METABOLIC Hx Endocrine Disorders: No - HEMATOLOGICAL/ONCOLOGICAL Hx Blood Disorders: No - INTEGUMENTARY Hx Dermatological Problems: No - MUSCULOSKELETAL/RHEUMATOLOGICAL Hx Falls: Yes - GASTROINTESTINAL Hx Gastrointestinal Disorders: No - GENITOURINARY/GYNECOLOGICAL Hx Genitourinary Disorders: No - PSYCHIATRIC Hx Anxiety: Yes Hx Bipolar Disorder: Yes Hx Depression: Yes Hx Schizophrenia: Yes Hx Substance Use: No - SURGICAL HISTORY Hx Surgeries: No - ANESTHESIA Hx Anesthesia: Yes Hx Anesthesia Reactions: No Hx Malignant Hyperthermia: No Meds Allergies/Adverse Reactions: Allergies Allergy/AdvReac Type Severity Reaction Status Date / Time Penicillins Allergy Intermediate RASH Verified 02/20/18 08:58 - Medications Medications: Current Medications Acetaminophen (Tylenol 325mg Tab) 650 mg PO TID PRN PRN Reason: arthritis pain Amlodipine Besylate (Norvasc) 5 mg PO DAILY [facility] Last Admin: 02/21/18 10:33 Dose: 5 mg Aspirin (Aspirin) 325 mg PO DAILY [facility] Last Admin: 02/21/18 10:49 Dose: 325 mg Bisoprolol Fumarate/HCTZ (Ziac 10-6.25 Mg) 1 tab PO DAILY [facility] Last Admin: 02/21/18 10:33 Dose: 1 tab Enoxaparin Sodium (Lovenox) 40 mg SC DAILY [facility] Last Admin: 02/21/18 10:34 Dose: 40 mg Gabapentin (Neurontin) 400 mg PO BID [facility] Last Admin: 02/21/18 10:33 Dose: 400 mg Lorazepam (Ativan) 1 mg PO DAILY [facility] Last Admin: 02/21/18 10:34 Dose: Not Given Meclizine HCl (Antivert) 25 mg PO Q6H PRN PRN Reason: Nausea, dizziness Morphine Sulfate (Morphine) 2 mg IVP Q6H PRN PRN Reason: Pain, moderate (4-7) Last Admin: 02/21/18 07:58 Dose: 2 mg Pantoprazole Sodium (Protonix Ec Tab) 40 mg PO DAILY [facility] Last Admin: 02/21/18 10:33 Dose: 40 mg Sertraline HCl (Zoloft) 50 mg PO DAILY [facility] Last Admin: 02/21/18 10:33 Dose: 50 mg Ziprasidone (Geodon Cap) 20 mg PO BID [facility] Last Admin: 02/21/18 10:34 Dose: 20 mg Physical Exam - Constitutional Appears: Well, Non-toxic - Head Exam Head Exam: ATRAUMATIC, NORMAL INSPECTION - Eye Exam Eye Exam: PERRL. absent: Scleral icterus - ENT Exam ENT Exam: Mucous Membranes Dry, Mucous Membranes Moist, Normal External Ear Exam - Neck Exam Neck exam: Positive for: Full Rom. Negative for: Thyromegaly - Respiratory Exam Respiratory Exam: Clear to Auscultation Bilateral, NORMAL BREATHING PATTERN - Cardiovascular Exam Cardiovascular Exam: REGULAR RHYTHM, RRR, +S1, +S2. absent: JVD - GI/Abdominal Exam GI & Abdominal Exam: Normal Bowel Sounds. absent: Organomegaly - Extremities Exam Extremities exam: Negative for: calf tenderness, pedal edema - Neurological Exam Neurological exam: CN II-XII Intact, Oriented x3 - Psychiatric Exam Psychiatric exam: Normal Affect, Normal Mood Results - Vital Signs Recent Vital Signs: Last Vital Signs Temp 97.4 F L 02/21/18 07:00 Pulse 51 L 02/21/18 12:04 Resp 20 02/21/18 07:00 BP 153/89 H 02/21/18 07:00 Pulse Ox 95 02/21/18 07:00 - Labs Result Diagrams: 02/20/18 09:33 02/20/18 09:33 Labs: Laboratory Results - last 24 hr 02/20/18 02/21/18 02/21/18 20:52 04:32 10:52 Total Creatine Kinase 119 112 101 CK-MB (Mass) 0.85 0.85 0.79 Troponin I < 0.0120 < 0.0120 < 0.0120 - EKG Data EKG Interpreted by: Myself EKG shows normal: Sinus rhythm - Imaging and Cardiology Chest x-ray Status: Image reviewed by me Additional comment: Poor inspirtory effort no infiltrates Assessment & Plan - Assessment and Plan (Free Text) Assessment: 68 year old female with atypical chest pain EKG is negative for ischemia, serial trop is negative for [place]. encourge patient to keep symptom log and we will review this together in the office to determine the benefit of angina work up HTN is chronic and stable on bisoprolol, hctz, and amlodipine Bradycardia is sinus likely due to beta jimmy and is asymptomatic so does not need further work up She should call my office on friday for appointment in 1-2 weeks
--- NOTE | 2018-02-21 18:23 | CP.PCM.PN ---
Subjective - Date & Time of Evaluation Date of Evaluation: 02/21/18 Time of Evaluation: 12:40 - Subjective Subjective: clinically same Objective - Vital Signs/Intake and Output Vital Signs (last 24 hours): Temp Pulse Resp BP Pulse Ox 98.0 F 48 L 20 115/63 96 02/21/18 15:03 02/21/18 15:42 02/21/18 15:03 02/21/18 15:03 02/21/18 16:00 - Medications Medications: Current Medications Acetaminophen (Tylenol 325mg Tab) 650 mg PO TID PRN PRN Reason: arthritis pain Amlodipine Besylate (Norvasc) 5 mg PO DAILY [facility] Last Admin: 02/21/18 10:33 Dose: 5 mg Aspirin (Aspirin) 325 mg PO DAILY [facility] Last Admin: 02/21/18 10:49 Dose: 325 mg Bisoprolol Fumarate/HCTZ (Ziac 10-6.25 Mg) 1 tab PO DAILY [facility] Last Admin: 02/21/18 10:33 Dose: 1 tab Enoxaparin Sodium (Lovenox) 40 mg SC DAILY [facility] Last Admin: 02/21/18 10:34 Dose: 40 mg Gabapentin (Neurontin) 400 mg PO BID [facility] Last Admin: 02/21/18 17:36 Dose: 400 mg Lorazepam (Ativan) 1 mg PO DAILY [facility] Last Admin: 02/21/18 10:34 Dose: Not Given Meclizine HCl (Antivert) 25 mg PO Q6H PRN PRN Reason: Nausea, dizziness Morphine Sulfate (Morphine) 2 mg IVP Q6H PRN PRN Reason: Pain, moderate (4-7) Last Admin: 02/21/18 07:58 Dose: 2 mg Pantoprazole Sodium (Protonix Ec Tab) 40 mg PO DAILY [facility] Last Admin: 02/21/18 10:33 Dose: 40 mg Sertraline HCl (Zoloft) 50 mg PO DAILY [facility] Last Admin: 02/21/18 10:33 Dose: 50 mg Ziprasidone (Geodon Cap) 20 mg PO BID [facility] Last Admin: 02/21/18 17:36 Dose: 20 mg - Labs Labs: 02/20/18 09:33 02/20/18 09:33 PT 10.8 SECONDS (9.7-12.2) 02/20/18 09:33 INR 1.0 02/20/18 09:33 APTT 23 SECONDS (21-34) 02/20/18 09:33 - Constitutional Appears: Well - Head Exam Head Exam: ATRAUMATIC, NORMAL INSPECTION, NORMOCEPHALIC - Eye Exam Eye Exam: EOMI, Normal appearance, PERRL Pupil Exam: NORMAL ACCOMODATION, PERRL - ENT Exam ENT Exam: Mucous Membranes Moist, Normal Exam - Neck Exam Neck Exam: Full ROM, Normal Inspection. absent: Lymphadenopathy - Respiratory Exam Respiratory Exam: Decreased Breath Sounds - Cardiovascular Exam Cardiovascular Exam: REGULAR RHYTHM, +S1, +S2 - GI/Abdominal Exam GI & Abdominal Exam: Soft, Diminished Bowel Sounds - Rectal Exam Rectal Exam: Deferred
[2018-02-22] MEDS: Pantoprazole 40 mg EC Tab PO SCH (10:25)
[2018-02-22] MEDS: Enoxaparin 40 mg Syringe SC SCH (10:26)
[2018-02-22] MEDS: Bisoprolol-HCTZ 10-6.25 mg Tab PO SCH (11:11)
--- NOTE | 2018-02-22 14:55 | CP.PCM.PN ---
Subjective - Date & Time of Evaluation Date of Evaluation: 02/22/18 Time of Evaluation: 13:00 - Subjective Subjective: clinically same Objective - Vital Signs/Intake and Output Vital Signs (last 24 hours): Temp Pulse Resp BP Pulse Ox 98.5 F 59 L 20 129/84 94 L 02/22/18 07:00 02/22/18 07:00 02/22/18 07:00 02/22/18 07:00 02/22/18 07:00 - Medications Medications: Current Medications Acetaminophen (Tylenol 325mg Tab) 650 mg PO TID PRN PRN Reason: arthritis pain Amlodipine Besylate (Norvasc) 5 mg PO DAILY [facility] Last Admin: 02/22/18 10:25 Dose: 5 mg Aspirin (Aspirin) 325 mg PO DAILY [facility] Last Admin: 02/22/18 10:25 Dose: 325 mg Bisoprolol Fumarate/HCTZ (Ziac 10-6.25 Mg) 1 tab PO DAILY [facility] Last Admin: 02/22/18 11:11 Dose: 1 tab Enoxaparin Sodium (Lovenox) 40 mg SC DAILY [facility] Last Admin: 02/22/18 10:26 Dose: 40 mg Gabapentin (Neurontin) 400 mg PO BID [facility] Last Admin: 02/22/18 10:26 Dose: 400 mg Lorazepam (Ativan) 1 mg PO DAILY [facility] Last Admin: 02/22/18 10:25 Dose: 1 mg Meclizine HCl (Antivert) 25 mg PO Q6H PRN PRN Reason: Nausea, dizziness Morphine Sulfate (Morphine) 2 mg IVP Q6H PRN PRN Reason: Pain, moderate (4-7) Last Admin: 02/21/18 19:35 Dose: 2 mg Pantoprazole Sodium (Protonix Ec Tab) 40 mg PO DAILY [facility] Last Admin: 02/22/18 10:25 Dose: 40 mg Sertraline HCl (Zoloft) 50 mg PO DAILY [facility] Last Admin: 02/22/18 10:25 Dose: 50 mg Ziprasidone (Geodon Cap) 20 mg PO BID [facility] Last Admin: 02/22/18 10:26 Dose: 20 mg - Labs Labs: 02/20/18 09:33 02/20/18 09:33 PT 10.8 SECONDS (9.7-12.2) 02/20/18 09:33 INR 1.0 02/20/18 09:33 APTT 23 SECONDS (21-34) 02/20/18 09:33 - Constitutional Appears: Well - Head Exam Head Exam: ATRAUMATIC, NORMAL INSPECTION, NORMOCEPHALIC - Eye Exam Eye Exam: EOMI, Normal appearance, PERRL Pupil Exam: NORMAL ACCOMODATION, PERRL - ENT Exam ENT Exam: Mucous Membranes Moist, Normal Exam - Neck Exam Neck Exam: Full ROM, Normal Inspection. absent: Lymphadenopathy - Respiratory Exam Respiratory Exam: Decreased Breath Sounds - Cardiovascular Exam Cardiovascular Exam: REGULAR RHYTHM, +S1, +S2 - GI/Abdominal Exam GI & Abdominal Exam: Soft, Diminished Bowel Sounds - Rectal Exam Rectal Exam: Deferred
[2018-02-22 15:42] VITALS: BP 127/72; PULSE 53; TEMP 97.9; O2SAT 97
--- NOTE | 2018-02-24 15:00 | CARD ---
APPROVED REPORT Date of service: 02/20/2018 EKG Measurement Heart [id number] <Conclusion> Normal sinus rhythm Minimal voltage criteria for LVH, may be normal variant Borderline ECG
== END 2018-02-22 19:00 | disposition home or self-care (01) ==
LOC: C.ER 08:52 → C.9E 11:49 → C.6T 15:55
PROVIDERS: ADMIT Internal Medicine Nephrology; ATTEND Internal Medicine Nephrology
DX: R07.89 Other chest pain (principal); E78.00 Pure hypercholesterolemia, unspecified; F20.9 Schizophrenia, unspecified; F31.9 Bipolar disorder, unspecified; I10 Essential (primary) hypertension; J45.909 Unspecified asthma, uncomplicated; F41.9 Anxiety disorder, unspecified; Z88.0 Allergy status to penicillin
CPT/HCPCS: 36415; 71045; 80053; 81001; 82550; 82553; 84484; 85025; 85610; 85730; 99285; G0378; J1650; J2270

== ENCOUNTER 2018-05-18 14:29 | Emergency (ER) | payer MEDICARE, MEDICAID ==
[2018-05-18 14:29] VITALS: BMI 30.4
[2018-05-18 15:15] LABS: BASO # 0.1 K/uL (0.0-0.2); BASO % 0.9 % (0.0-2.0); EOS % 0.7 % (0.0-4.0); HEMOGLOBIN 12.2 g/dL (11.0-16.0); LYMPH # 2.4 K/uL (1.0-4.3); LYMPH % 37.8 % (20.0-40.0); MEAN CORPUSCULAR HEMOGLOBIN 25.7 pg (27.0-31.0); MEAN CORPUSCULAR HGB CONC 33.1 g/dL (33.0-37.0); MEAN PLATELET VOLUME 7.5 fL (7.2-11.7); MONO # 0.5 K/uL (0.0-0.8); MONO % 7.7 % (0.0-10.0); NEUT # 3.3 K/uL (1.8-7.0); NEUT % 52.9 % (50.0-75.0); RBC 4.73 Mil/uL (3.80-5.20); WHITE BLOOD COUNT 6.3 K/uL (4.8-10.8)
[2018-05-18 15:17] LABS: MEAN CELL VOLUME 77.7 fL (81.0-99.0)
[2018-05-18 15:33] LABS: ALB/GLOB RATIO 1.4 (1.0-2.1); ALBUMIN 4.2 g/dL (3.5-5.0); ALT/SGPT 17 U/L (9-52); AST/SGOT 17 U/L (14-36); BLOOD UREA NITROGEN 10 mg/dL (7-17); CALCIUM 9.4 mg/dl (8.6-10.4); GFR NON-AFRICAN AMERICAN > 60
[2018-05-18 16:05] LABS: SQUAMOUS EPITHIAL < 1 /hpf (0-5); URINE BILIRUBIN NEGATIVE (NEGATIVE); URINE BLOOD NEGATIVE (NEGATIVE); URINE CLARITY Clear (Clear); URINE COLOR Straw (YELLOW); URINE GLUCOSE (UA) NORMAL (Normal); URINE LEUKOCYTE ESTERASE NEG Leu/uL (Negative); URINE PROTEIN NEGATIVE (NEGATIVE); URINE UROBILINOGEN NORMAL mg/dL (0.2-1.0)
[2018-05-18 16:18] LABS: BARBITURATES, UR NEGATIVE (NEGATIVE); BENZODIAZEPINES, UR NEGATIVE (NEGATIVE); OPIATES, UR NEGATIVE (NEGATIVE); PHENCYCLIDINE, UR NEGATIVE (NEGATIVE)
--- NOTE | 2018-05-18 17:22 | RAD ---
HISTORY: r/o infiltrate COMPARISON: Chest x-ray performed 02/20/18 TECHNIQUE: Chest, one view. FINDINGS: Examination limited by habitus. LUNGS: No focal consolidation. Please note that chest x-ray has limited sensitivity for the detection of pulmonary masses. PLEURA: No significant pleural effusion identified. No definite pneumothorax . CARDIOVASCULAR: Heart size appears within normal limits. Faint significant atherosclerotic calcification present. OSSEOUS STRUCTURES: No acute osseous abnormality identified. VISUALIZED UPPER ABDOMEN: Elevation of the right hemidiaphragm. OTHER FINDINGS: None. IMPRESSION: No focal consolidation, significant pleural effusion, or definite pneumothorax identified.
--- NOTE | 2018-05-18 17:36 | C.PDOC ---
History Of Present Illness 68-year-old female, presents to the emergency department with complaints of feeling anxious and depressed. Patient states she doesn't want to live anymore, and wants to slit her wrists. She denies any HI. No physical complaints. Time Seen by Provider: 05/18/18 14:42 Chief Complaint (Nursing): Psychiatric Evaluation History Per: Patient History/Exam Limitations: no limitations Current Symptoms Are (Timing): Still Present Past Medical History Reviewed: Historical Data, Nursing Documentation, Vital Signs Vital Signs: Last Vital Signs Temp 97.5 F L 05/18/18 15:00 Pulse 64 05/18/18 15:00 Resp 20 05/18/18 15:00 BP 139/76 05/18/18 15:00 Pulse Ox 99 05/18/18 15:00 - Medical History PMH: Anxiety, Asthma, Bipolar Disorder, Depression, HTN, Hypercholesterolemia, Schizophrenia Denies: Diabetes, Hepatitis, HIV, Chronic Kidney Disease, Seizures, Sexually Transmitted Disease Surgical History: Endoscopy Family History: States: No Known Family Hx - Social History Hx Alcohol Use: Yes (denies) Hx Substance Use: No - Immunization History Hx Tetanus Toxoid Vaccination: Yes Hx Influenza Vaccination: Yes Hx Pneumococcal Vaccination: Yes (07/2015) Review Of Systems Constitutional: Negative for: Fever, Chills Cardiovascular: Negative for: Chest Pain Respiratory: Negative for: Shortness of Breath Gastrointestinal: Negative for: Nausea, Vomiting Neurological: Negative for: Weakness Psych: Positive for: Depression, Suicidal ideation. Negative for: Psychosis, Withdrawal Physical Exam - Physical Exam Appears: Non-toxic, No Acute Distress Skin: Warm, Dry, No Rash Head: Atraumatic Eye(s): bilateral: Normal Inspection Nose: Normal Oral Mucosa: Moist Lips: Normal Appearing Neck: Normal ROM Cardiovascular: Rhythm Regular, No Murmur Respiratory: Normal Breath Sounds, No Accessory Muscle Use Gastrointestinal/Abdominal: Soft, No Tenderness Back: Normal Inspection Extremity: Normal ROM, No Deformity Neurological/Psych: Oriented x3, Normal Speech ED Course And Treatment - Laboratory Results Result Diagrams: 05/18/18 15:11 05/18/18 15:11 ECG: Interpreted By Me, Viewed By Me ECG Rhythm: Sinus Rhythm ECG Interpretation: No Acute Changes Rate From EC O2 Sat by Pulse Oximetry: 99 Pulse Ox Interpretation: Normal (RA) Progress Note: medically cleared for psychiatric evaluation and admission. Disposition - Disposition Disposition Time: :00 Condition: STABLE Forms: [facility] ([place]ese) - Clinical Impression Clinical Impression: MDD (major depressive disorder) - Scribe Statement The provider has reviewed the documentation as recorded by the Scribe (Pradeep Westbrook) Provider Attestation: All medical record entries made by the Scribe were at my direction and personally dictated by me. I have reviewed the chart and agree that the record accurately reflects my personal performance of the history, physical exam, medical decision making, and the department course for this patient. I have also personally directed, reviewed, and agree with the discharge instructions and disposition.
[2018-05-18 19:08] VITALS: RESP 20; TEMP 97.6
[2018-05-18 23:32] VITALS: BP 145/78; PULSE 70
[2018-05-19 00:09] VITALS: O2SAT 99
--- NOTE | 2018-05-20 23:57 | CARD ---
APPROVED REPORT Date of service: 05/18/2018 EKG Measurement Heart [id number] <Conclusion> Normal sinus rhythm Minimal voltage criteria for LVH, may be normal variant Borderline ECG
== END 2018-05-19 00:38 | disposition short-term general hospital (02) ==
LOC: C.ER 14:29
DX: F32.9 Major depressive disorder, single episode, unspecified (principal)
CPT/HCPCS: 36415; 71045; 80053; 81001; 83735; 84100; 85025; 93005; 99285; G0480

== ENCOUNTER 2018-06-08 08:14 | Emergency (ER) | payer MEDICARE, MEDICAID ==
[2018-06-08 08:14] VITALS: BMI 30.5
[2018-06-08 08:21] VITALS: RESP 18
[2018-06-08] MEDS ORDERED: cefTRIAXone 250 MG, Lidocaine Hydrochloride 1% 1 ML IM STA (10:25)
--- NOTE | 2018-06-08 12:38 | C.PDOC ---
History Of Present Illness 68 y/o female presents to the ER complaining of vaginal discharge and itching which has been present for the past 4 days. Patient is also complaining of dysuria. Patient denies having unprotected sex, abdominal pain, fever, and chills. Time Seen by Provider: 06/08/18 08:17 Chief Complaint (Nursing): Female Genitourinary History Per: Patient History/Exam Limitations: no limitations Onset/Duration Of Symptoms: Days Current Symptoms Are (Timing): Still Present Severity: Moderate Past Medical History Reviewed: Historical Data, Nursing Documentation, Vital Signs Vital Signs: Last Vital Signs Temp Pulse 86 06/08/18 08:16 Resp 18 06/08/18 08:16 BP 173/89 H 06/08/18 08:16 Pulse Ox 96 06/08/18 08:16 - Medical History PMH: Anxiety, Asthma, Bipolar Disorder, Depression, HTN, Hypercholesterolemia, Schizophrenia Denies: Diabetes, Hepatitis, HIV, Chronic Kidney Disease, Seizures, Sexually Transmitted Disease Surgical History: Endoscopy - [facility] PSYCHOTHERAPY (05/19/18) Family History: States: No Known Family Hx - Social History Hx Alcohol Use: No Hx Substance Use: No - Immunization History Hx Tetanus Toxoid Vaccination: Yes Hx Influenza Vaccination: Yes Hx Pneumococcal Vaccination: Yes (07/2015) Review Of Systems Except As Marked, All Systems Reviewed And Found Negative. Constitutional: Negative for: Fever, Chills Gastrointestinal: Negative for: Abdominal Pain Genitourinary: Positive for: Dysuria, Vaginal Discharge Physical Exam - Physical Exam Appears: No Acute Distress, Other (bizarre affect) Skin: Normal Color, Warm, Dry Head: Atraumatic, Normacephalic Eye(s): bilateral: Normal Inspection Nose: Normal Oral Mucosa: Moist Neck: Supple Chest: Symmetrical Cardiovascular: Rhythm Regular Respiratory: Normal Breath Sounds, No Rales, No Rhonchi, No Wheezing Gastrointestinal/Abdominal: Normal Exam, Soft, No Tenderness, No Guarding, No Rebound Pelvic: No Vaginal Bleeding, Vaginal Discharge (thick white discharge), No Cervical Motion Tenderness, No Adnexal Tenderness, Other (vesicular lesions consistent with herpes to right labia) Extremity: Normal ROM, Other (vesicular lesions consistent with shingles to right buttock) Neurological/Psych: Oriented x3, Normal Speech ED Course And Treatment O2 Sat by Pulse Oximetry: 96 (RA) Pulse Ox Interpretation: Normal Progress Note: Patient treated with Benadryl PO,Motrin PO, Zithromax PO,and Rocephin IM.Chlyamdia/GC RNA, TMA and UA ordered. Disposition Counseled Patient/Family Regarding: Studies Performed, Diagnosis, Need For Followup, Rx Given - Disposition Referrals: [facility] [Outside] [facility] [Outside] Disposition: HOME/ ROUTINE Disposition Time: 12:15 Condition: STABLE Additional Instructions: FOLLOW UP WITH [facility]ER WITHIN 1 WEEK USE MEDICATIONS DIRECTED RETURN TO ER IF SYMPTOMS WORSEN Prescriptions: Acyclovir 400 mg PO TID #21 tablet metroNIDAZOLE [Flagyl] 500 mg PO BID #14 tab Instructions: Genital Herpes (DC), Vaginal Discharge in Adults Forms: [email or web address] (Indian) Print Language: GERMAN - Clinical Impression Clinical Impression: Genital herpes, Cervicitis - Scribe Statement The provider has reviewed the documentation as recorded by the Teresa Domínguez Provider Attestation: All medical record entries made by the Teresa were at my direction and personally dictated by me. I have reviewed the chart and agree that the record accurately reflects my personal performance of the history, physical exam, medical decision making, and the department course for this patient. I have also personally directed, reviewed, and agree with the discharge instructions and disposition.
[2018-06-08 13:23] VITALS: BP 189/89; PULSE 75; TEMP 97.4
[2018-06-08 13:38] VITALS: O2SAT 96
== END 2018-06-08 13:23 | disposition home or self-care (01) ==
LOC: C.ER 08:14
DX: N72 Inflammatory disease of cervix uteri (principal); A60.00 Herpesviral infection of urogenital system, unspecified; E78.00 Pure hypercholesterolemia, unspecified; I10 Essential (primary) hypertension; F20.9 Schizophrenia, unspecified
CPT/HCPCS: 87491; 87591; 96372; 99284; J0696

== ENCOUNTER 2018-07-06 08:38 | Day surgery (SDC) | payer MEDICARE ==
[2018-07-02 09:31] VITALS: BMI 31.1
[2018-07-06] MEDS ORDERED: Bupivacaine 0.25% 20 ML INJ IJ ONE (12:42)
[2018-07-06] MEDS ORDERED: Lidocaine/Epinephrine 1% 1:100000 10 ML IJ ONE (12:42)
[2018-07-06] MEDS ORDERED: ceFAZolin IV 1 gm in Dextrose 0 GM/0 ML BAG IVPB ONE (12:42)
[2018-07-06] MEDS ORDERED: Midazolam 2 MG/2 ML VIAL ONE (12:52)
[2018-07-06] MEDS ORDERED: Propofol 10 mg/ml Inj (20 ML) ONE (12:53)
[2018-07-06] MEDS ORDERED: Vancomycin 1 gm/D5W 200 ml 1 GM/200 ML BAG IVPB ONE (12:55)
[2018-07-06] MEDS ORDERED: DiphenhydrAMINE 50 mg/ml Inj ONE (12:56)
[2018-07-06] MEDS ORDERED: HYDROmorphone 0.5 mg/0.5 ml ISec IVP PRN (14:30)
[2018-07-06] MEDS ORDERED: Oxycodone/Acetaminophen 5/325 mg Tab PO PRN (14:46)
--- NOTE | 2018-07-06 14:49 | PCM.SURG1 ---
Surgeon's Initial Post Op Note - Surgeon's Notes Surgeon: Dr. Pratt Vehicle Trimmer: Nitin PGY2 Type of Anesthesia: General Endo, Local Anesthesia Administered By: Carmencita Webb Pre-Operative Diagnosis: Right Breast lesion Operative Findings: see operative report Post-Operative Diagnosis: same Operation Performed: Right Breast Lumpectomy Specimen/Specimens Removed: Right breast needle-localized lesion Estimated Blood Loss: EBL {In ML}: 20 Blood Products Given: N/A Drains Used: No Drains Post-Op Condition: Good Date of Surgery/Procedure: 07/06/18 Time of Surgery/Procedure: 14:49
[2018-07-06 16:48] VITALS: BP 137/82; PULSE 71; RESP 18; TEMP 98; O2SAT 100
--- NOTE | 2018-07-06 16:55 | US ---
Date of service: 07/06/2018 HISTORY: Patient is 71-year-old female with history of right breast atypical papillary lesion is been identified at the 12 o'clock radius as per pathology from ultrasound-guided biopsy. Patient presents for preoperative right breast needle localization under ultrasound control. TECHNIQUE/FINDINGS: Following full discussion of risks and benefits of the procedure with the patient including alternatives, patient freely gave written consent. Timeout was called for ultrasound guided wire needle localization procedure for lesion right breast. Plan ultrasonography did identifies the lesion in question at the 12 o'clock radius, essentially periareolar space. Overlying skin was marked for procedure. Maximum sterile barrier protection was provided at the skin overlying the lesion in question. One cc of lidocaine was utilized for skin anesthesia and 4cc of lidocaine was utilized for deep tissue anesthesia. A 7.5 cm needle was advanced under ultrasound control through the lesion in question with a localizing modified Kopan's wire subsequently deployed with the stiffener in the lesion. Is confirmed in longitudinal and transverse sonographic projections. The wire was properly secured in good position. Post seizure mammograms demonstrate good placement of the wire through the lesion in question as well. Patient tolerated the procedure well with no complications. Postoperative specimen radiograph demonstrates the lesion in question in the center of the submitted specimen with wire through the lesion. OTHER FINDINGS: None. IMPRESSION: Post successful ultrasound needle localization with post lumpectomy specimen radiography identifying lesion in the center of the submitted tissue volume including the wire.
--- NOTE | 2018-07-07 04:23 | OP ---
PROCEDURE DATE: 07/06/2018 PREOPERATIVE DIAGNOSIS: Right breast lesion with atypical cell. POSTOPERATIVE DIAGNOSIS: Right breast lesion with atypical cell. PROCEDURES DONE: Preoperative needle localization and right breast lumpectomy. SURGEON: Lorenzo Pratt MD HEEL COVER SPLITTER: Geovanni Taveras DO, PGY-2 resident. TYPE OF ANESTHESIA: General anesthesia with LMA. ESTIMATED BLOOD LOSS: Around 10 mL. DRAIN: None. PATHOLOGY: The breast lumpectomy specimen was sent for the radiological confirmation as well as permanent pathology. COMPLICATIONS: None. INTRAOPERATIVE FINDINGS: This is a 68-year-old female who was diagnosed with right breast lesion with atypical cells. DESCRIPTION OF PROCEDURE: The patient was consented for the preoperative needle localization and right breast lumpectomy, and brought to the OR. After preoperative needle localization, placed supine on the operating table. After induction of the anesthesia, the right breast was prepped and draped in the usual sterile fashion. The curvilinear periareolar incision was made, and lateral flap was created. The wire was delivered into the wound, and now, the medial flap was created. The medial flap was going downward to the nipple, and the lesion was in the subareolar area underneath the nipple, and the dissection was carried down beyond the nipple and the dissection was carried down deep up to the fascia, and the central part of the breast was excised as a lumpectomy specimen and it was sent for the radiological confirmation. After proper confirmation, the wound was irrigated, and the wound was closed in two layers; the subcutaneous with 2-0 Vicryl and the skin with a 4-0 Monocryl, and dry sterile dressing was applied. The patient tolerated the procedure well. Count of instrument and gauze was correct. There were no apparent complications. The patient was reversed from anesthesia, sent to the postanesthesia care unit in stable condition. Lorenzo Pratt MD
== END 2018-07-06 17:37 | disposition home or self-care (01) ==
LOC: C.SDS 08:38
PROVIDERS: ATTEND Surgery Surgical Critical Care
DX: D24.1 Benign neoplasm of right breast (principal); N64.9 Disorder of breast, unspecified
CPT/HCPCS: 19285; 19301; 88307; J1170; J1200; J1885; J2001; J2250; J2405; J2704; J2930; J3010; J3370

== ENCOUNTER 2018-07-23 15:28 | Emergency (ER) | payer MEDICARE, MEDICAID ==
[2018-07-23 15:29] VITALS: BMI 31.1
[2018-07-23 15:56] VITALS: TEMP 97.4; O2SAT 95
--- NOTE | 2018-07-23 16:10 | C.PDOC ---
History Of Present Illness Patient presents to ED c/o pain and two episodes of bleeding from right breast today. Patient is s/p lumpectomy by Dr. Pratt on 07/06/18. She states the area has been painful for several days, but today she had bleeding. Patient denies fever, purulent discharge, rash, trauma/injuries. Time Seen by Provider: 07/23/18 15:59 Chief Complaint (Nursing): Abnormal Skin Integrity History Per: Patient History/Exam Limitations: no limitations Onset/Duration Of Symptoms: Days Current Symptoms Are (Timing): Still Present Location Of Injury: Right: Chest (righy breast) Quality Of Symptoms: Painful, Other (bleeding) Severity: Mild Past Medical History Reviewed: Historical Data, Nursing Documentation, Vital Signs Vital Signs: Last Vital Signs Temp 97.4 F L 07/23/18 15:50 Pulse 60 07/23/18 15:50 Resp 20 07/23/18 15:50 BP 153/77 H 07/23/18 15:50 Pulse Ox 95 07/23/18 15:50 - Medical History PMH: Anxiety, Asthma (NEVER HOSPITALIZED"IT WENT AWAY"), Bipolar Disorder, Depression, Gastritis, HTN, Hypercholesterolemia, Schizophrenia Surgical History: Endoscopy - [facility] Procedures GROUP PSYCHOTHERAPY (05/19/18) Family History: States: No Known Family Hx - Social History Hx Alcohol Use: No Hx Substance Use: No - Immunization History Hx Tetanus Toxoid Vaccination: (unk) Hx Influenza Vaccination: Yes Hx Pneumococcal Vaccination: Yes (07/2015) Review Of Systems Constitutional: Negative for: Fever, Chills Cardiovascular: Negative for: Chest Pain, Palpitations Respiratory: Negative for: Shortness of Breath Gastrointestinal: Negative for: Nausea, Vomiting Skin: Positive for: Other (right breast pain, redness, bleeding x 2) Physical Exam - Physical Exam Appears: Well, Non-toxic, No Acute Distress, Other (bizarre affect) Skin: Other (right breast mild erythema around surgical wound and arealo, no active bleeding or discharge, (+) mildly TTP) Oral Mucosa: Moist Cardiovascular: Rhythm Regular Respiratory: Normal Breath Sounds, No Rales, No Rhonchi, No Wheezing Neurological/Psych: Oriented x3 ED Course And Treatment - Laboratory Results Result Diagrams: 07/23/18 16:34 07/23/18 16:34 O2 Sat by Pulse Oximetry: 95 Disposition Counseled Patient/Family Regarding: Studies Performed, Diagnosis, Need For Followup, Rx Given - Disposition Referrals: [facility] [Outside] Disposition: HOME/ ROUTINE Disposition Time: 17:30 Condition: STABLE Additional Instructions: FOLLOW UP WITH DR MEDRANO IN HER SURGICAL CLINIC TAKE ALL ANTIBIOTICS UNTIL FINISHED RETURN TO ER IF SYMPTOMS WORSEN Prescriptions: Acetaminophen [Tylenol 325mg tab] 650 mg PO Q6 PRN #30 tab PRN Reason: pain/fever Cephalexin [Keflex] 500 mg PO BID #20 capsule Instructions: Mastalgia (DC), Cellulitis (Skin Infection), Adult (DC) Forms: [employer] (Rwandan) Print Language: ARABIC - Clinical Impression Clinical Impression: Breast pain, right, Bleeding from breast, Cellulitis of breast
[2018-07-23 16:38] LABS: BASO # 0.1 K/uL (0.0-0.2); BASO % 1.6 % (0.0-2.0); EOS % 0.6 % (0.0-4.0); HEMOGLOBIN 11.2 g/dL (11.0-16.0); LYMPH # 1.9 K/uL (1.0-4.3); LYMPH % 31.6 % (20.0-40.0); MEAN CELL VOLUME 76.2 fL (81.0-99.0); MEAN CORPUSCULAR HEMOGLOBIN 24.7 pg (27.0-31.0); MEAN CORPUSCULAR HGB CONC 32.4 g/dL (33.0-37.0); MEAN PLATELET VOLUME 8.1 fL (7.2-11.7); MONO # 0.5 K/uL (0.0-0.8); NEUT # 3.5 K/uL (1.8-7.0); NEUT % 58.2 % (50.0-75.0); NRBC % 0.2 % (0.0-2.0); RBC 4.52 Mil/uL (3.80-5.20); RED CELL DISTRIBUTION WIDTH 14.9 % (11.5-14.5); WHITE BLOOD COUNT 5.9 K/uL (4.8-10.8)
[2018-07-23] MEDS ORDERED: Amoxicillin-Clav 875-125 mg Tab PO STA (16:40)
[2018-07-23] MEDS ORDERED: Amoxicillin-Clav 875-125 mg Tab PO ONE (16:51)
[2018-07-23 16:54] LABS: INR 0.9; PROTHROMBIN TIME 10.3 SECONDS (9.7-12.2)
[2018-07-23 16:55] LABS: ALB/GLOB RATIO 1.4 (1.0-2.1); ALBUMIN 4.3 g/dL (3.5-5.0); ALT/SGPT 12 U/L (9-52); AST/SGOT 43 U/L (14-36); BLOOD UREA NITROGEN 13 mg/dL (7-17); CALCIUM 8.6 mg/dl (8.6-10.4); GFR NON-AFRICAN AMERICAN > 60
[2018-07-23 17:42] VITALS: BP 142/70; PULSE 64; RESP 18
== END 2018-07-23 17:42 | disposition home or self-care (01) ==
LOC: C.ER 15:28
DX: N64.4 Mastodynia (principal); N61.0 Mastitis without abscess; N64.89 Other specified disorders of breast; E78.00 Pure hypercholesterolemia, unspecified; F20.9 Schizophrenia, unspecified; F31.9 Bipolar disorder, unspecified; I10 Essential (primary) hypertension

== ENCOUNTER 2018-08-08 08:38 | Emergency (ER) | payer MEDICARE, MEDICAID ==
[2018-08-08 08:39] VITALS: BMI 31.1
[2018-08-08 08:48] VITALS: RESP 18
[2018-08-08] MEDS ORDERED: Sodium Chloride 0.9% 1,000 ML IV ONE (09:11)
--- NOTE | 2018-08-08 09:16 | C.PDOC ---
History Of Present Illness Lower abdominal pain and R. flank pain. Patient with 4 days with R, flank pain and suprapubic pain. Vomiting. Pain is dull, intermittent, 5 out of 10. No fevr, no diarrhea. PMH; HTN. PSH; no surgery. FMH; no family history contributing to this visit. Time Seen by Provider: 08/08/18 08:59 Chief Complaint (Nursing): Abdominal Pain History Per: Patient History/Exam Limitations: no limitations Onset/Duration Of Symptoms: Gradual Current Symptoms Are (Timing): Still Present Severity: Moderate Pain Scale Rating Of: 5 Location Of Pain/Discomfort: Diffuse, Suprapubic Radiation Of Pain To:: Back Quality Of Discomfort: Dull Associated Symptoms: Vomiting Exacerbating Factors: None Alleviating Factors: None Last Bowel Movement: Yesterday Recent travel outside of the [place]: No Abnormal Vaginal Bleeding: No Past Medical History Vital Signs: Last Vital Signs Temp 98.4 F 08/08/18 08:46 Pulse 90 08/08/18 08:46 Resp 18 08/08/18 08:46 BP 181/104 H 08/08/18 08:46 Pulse Ox 100 08/08/18 08:46 - Medical History PMH: Anxiety, Asthma (NEVER HOSPITALIZED"IT WENT AWAY"), Bipolar Disorder, Depression, Gastritis, HTN, Hypercholesterolemia, Schizophrenia Denies: Diabetes, Hepatitis, Chronic Kidney Disease Surgical History: Endoscopy - [facility] Procedures GROUP PSYCHOTHERAPY (05/19/18) Family History: States: Unknown Family Hx - Social History Hx Alcohol Use: No Hx Substance Use: No - Immunization History Hx Tetanus Toxoid Vaccination: (unk) Hx Influenza Vaccination: Yes Hx Pneumococcal Vaccination: Yes (07/2015) Review Of Systems Except As Marked, All Systems Reviewed And Found Negative. Gastrointestinal: Positive for: Nausea, Vomiting Physical Exam - Physical Exam Appears: Non-toxic Skin: Normal Color Head: Atraumatic Eye(s): bilateral: Normal Inspection, PERRL, EOMI Ear(s): Left: Normal Nose: Normal Oral Mucosa: Moist Tongue: Normal Appearing Lips: Normal Appearing Throat: Normal Neck: Normal Lymphatic: Normal Exam Chest: Symmetrical Cardiovascular: Rhythm Regular Respiratory: Normal Breath Sounds Gastrointestinal/Abdominal: Soft, Tenderness (suprapubic) Extremity: Normal ROM Pulses: Left Carotid: Normal, Right Carotid: Normal Neurological/Psych: Oriented x3, Normal Speech Gait: Steady ED Course And Treatment - Laboratory Results Result Diagrams: 08/08/18 10:11 08/08/18 10:11 Lab Interpretation: Abnormal Interpretation Of Abnormal: mild lipase elevation, no upper abd pain ECG: Interpreted By Me, Viewed By Me ECG Rhythm: Sinus Bradycardia, Nonspecific Changes ECG Interpretation: Normal, No Acute Changes Rate From EC O2 Sat by Pulse Oximetry: 100 (RA) Pulse Ox Interpretation: Normal - CT Scan/US abd&pelvis CT Other Rad Studies (CT/US): Read By Radiologist, Radiology Report Reviewed CT/US Interpretation: Accession No. : [id number]. Patient Name / ID : CHRIS MANCUSO / [id number]. Exam Date : 08/08/2018 11:03:15 ( Approved ). Study Comment : Sex / Age : F / 68Y. Creator : Tasha Driscoll MD. Dictator : Tasha Driscoll MD. Pad Machine Feeder : Barrel Straightener : Tasha Driscoll MD. Approver2 : Report Date : 08/08/2018 12:36:30. My Comment : * . Date of service: 08/08/2018. PROCEDURE: CT Abdomen and Pelvis without intravenous contrast. HISTORY: flank pain. COMPARISON: 07/13/2017. TECHNIQUE: CT scan of the abdomen and pelvis was performed without ad ministration of intravenous contrast. Oral contrast was not administered. Coronal and sagittal reformatted images were obtained. . Radiation dose: Total exam DLP = 768.54 mGy-cm. This CT exam was performed using one or more of the following dose reduction techniques: Automated exposure control, adjustment of the mA and/or kV according to patient size, and/or use of iterative reconstruction technique. FINDINGS: LOWER THORAX: The visualized lungs are clear. LIVER: Normal in size. Subcentimeter subcapsular hypodensity in the right hepatic lobe too small to characterize. No intrahepatic ductal dilatation. GALLBLADDER AND BILE DUCTS: No calcified gallstones. The gallbladder is partially contracted. PANCREAS: Normal in size. No ductal dilatation. SPLEEN: Normal in size. ADRENALS: The right adrenal gland is normal in size without discrete nodule. There is a stable 8 mm adenoma in the left adrenal gland. KIDNEYS AND URETERS: Normal in size without nephrolithiasis. Mild fullness in the collecting system and mild prominence of the ureters is likely related to an over distended urinary bladder. VASCULATURE: No aortic aneurysm. No aortic atherosclerotic calcification or mural plaque present. BOWEL: The small bowel loops are normal in caliber. Scattered colonic diverticulosis without CT evidence for acute diverticulitis. No bowel dilatation or wall thickening. No bowel obstruction. APPENDIX: Normal appendix. PERITONEUM: No free fluid. No free air. LYMPH NODES: No enlarged lymph nodes. BLADDER: Over distended and grossly normal in appearance. REPRODUCTIVE: The uterus is normal in size. BONES: No acute fracture. Hemangioma in the T11 vertebral body. OTHER FINDINGS: Incompletely imaged and characterized is a 2.6 x 3.3 cm low-density mass in the right breast. IMPRESSION: Over distended urinary bladder. No nephrolithiasis, hydronephrosis or obstructive uropathy. Scattered colonic diverticulosis without CT evidence for acute diverticulitis. Stable 8 mm adenoma in the left adrenal gland. Fluid density 2.6 x 3.3 cm mass in the right breast pathologically proven to be atypical papillary lesion. Clinical follow-up is advised. Progress Note: Abdomen reexamened, non tender, soft. BP 160/75 Medical Decision Making Medical Decision Making: Plans: -- chem labs -- blood work -- IV fluids -- toradol -- Zofran -- UA Disposition Counseled Patient/Family Regarding: Studies Performed, Diagnosis, Need For Followup, Rx Given - Disposition Referrals: Neno Hammer MD [Staff Provider] - Disposition: HOME/ ROUTINE Disposition Time: 12:56 Condition: STABLE Prescriptions: Dicyclomine [Dicyclomine HCl] 10 mg PO TID #15 cap Ondansetron ODT [Zofran ODT] 4 mg PO TID #12 odt Instructions: Pancreatitis, High Blood Pressure (DC), Acute Abdomen (Belly Pain), Adult (DC) Forms: [employer] (Italian), General Discharge Instructions, Gen Discharge Inst Kittitian - POA Present On Arrival: None - Clinical Impression Clinical Impression: Hypertension, Abdominal pain, Pancreatitis - Scribe Statement The provider has reviewed the documentation as recorded by the Scribe Sharonda Dent Provider Attestation: All medical record entries made by the Juanibe were at my direction and personally dictated by me. I have reviewed the chart and agree that the record accurately reflects my personal performance of the history, physical exam, medical decision making, and the department course for this patient. I have also personally directed, reviewed, and agree with the discharge instructions and disposition.
[2018-08-08] MEDS ORDERED: Sodium Chloride 0.9% 1,000 ML ONE (09:28)
[2018-08-08 10:14] LABS: SQUAMOUS EPITHIAL 1 /hpf (0-5); URINE BACTERIA RARE (<OCC); URINE BILIRUBIN NEGATIVE (NEGATIVE); URINE BLOOD NEGATIVE (NEGATIVE); URINE CLARITY Clear (Clear); URINE COLOR Colorless (YELLOW); URINE GLUCOSE (UA) NORMAL (Normal); URINE LEUKOCYTE ESTERASE 1+ Leu/uL (Negative); URINE PROTEIN NEGATIVE (NEGATIVE); URINE UROBILINOGEN NORMAL mg/dL (0.2-1.0)
[2018-08-08 10:26] LABS: BASO # 0.1 K/uL (0.0-0.2); BASO % 1.8 % (0.0-2.0); EOS % 0.7 % (0.0-4.0); LYMPH # 1.5 K/uL (1.0-4.3); LYMPH % 32.7 % (20.0-40.0); MEAN CELL VOLUME 75.8 fL (81.0-99.0); MEAN CORPUSCULAR HEMOGLOBIN 24.3 pg (27.0-31.0); MEAN CORPUSCULAR HGB CONC 32.1 g/dL (33.0-37.0); MEAN PLATELET VOLUME 8.2 fL (7.2-11.7); MONO # 0.3 K/uL (0.0-0.8); MONO % 6.2 % (0.0-10.0); NEUT # 2.7 K/uL (1.8-7.0); NEUT % 58.6 % (50.0-75.0); NRBC % 0.1 % (0.0-2.0); RBC 4.95 Mil/uL (3.80-5.20); RED CELL DISTRIBUTION WIDTH 15.5 % (11.5-14.5); WHITE BLOOD COUNT 4.7 K/uL (4.8-10.8)
[2018-08-08 10:50] LABS: ALB/GLOB RATIO 1.4 (1.0-2.1); ALBUMIN 4.4 g/dL (3.5-5.0); ALT/SGPT 21 U/L (9-52); AST/SGOT 29 U/L (14-36); BLOOD UREA NITROGEN 5 mg/dL (7-17); CALCIUM 8.8 mg/dl (8.6-10.4); GFR NON-AFRICAN AMERICAN > 60; LIPASE 349 U/L (23-300)
[2018-08-08] MEDS ORDERED: Oxycodone/Acetaminophen 5/325 mg Tab PO STA (11:21)
[2018-08-08] MEDS ORDERED: Oxycodone/Acetaminophen 5/325 mg Tab ONE (11:26)
[2018-08-08] MEDS ORDERED: Potassium Chloride 20 mEq ER Tab PO STA (12:29)
[2018-08-08] MEDS ORDERED: Morphine 4 MG/ML VIAL IV STA (12:35)
[2018-08-08] MEDS ORDERED: Potassium Chloride 20 mEq ER Tab PO ONE (12:39)
--- NOTE | 2018-08-08 12:40 | CT ---
Date of service: 08/08/2018 PROCEDURE: CT Abdomen and Pelvis without intravenous contrast HISTORY: flank pain COMPARISON: 07/13/2017. TECHNIQUE: CT scan of the abdomen and pelvis was performed without administration of intravenous contrast. Oral contrast was not administered. Coronal and sagittal reformatted images were obtained. . Radiation dose: Total exam DLP = 768.54 mGy-cm. This CT exam was performed using one or more of the following dose reduction techniques: Automated exposure control, adjustment of the mA and/or kV according to patient size, and/or use of iterative reconstruction technique. FINDINGS: LOWER THORAX: The visualized lungs are clear. LIVER: Normal in size. Subcentimeter subcapsular hypodensity in the right hepatic lobe too small to characterize. No intrahepatic ductal dilatation. GALLBLADDER AND BILE DUCTS: No calcified gallstones. The gallbladder is partially contracted. PANCREAS: Normal in size. No ductal dilatation. SPLEEN: Normal in size. ADRENALS: The right adrenal gland is normal in size without discrete nodule. There is a stable 8 mm adenoma in the left adrenal gland. KIDNEYS AND URETERS: Normal in size without nephrolithiasis. Mild fullness in the collecting system and mild prominence of the ureters is likely related to an over distended urinary bladder. VASCULATURE: No aortic aneurysm. No aortic atherosclerotic calcification or mural plaque present. BOWEL: The small bowel loops are normal in caliber. Scattered colonic diverticulosis without CT evidence for acute diverticulitis. No bowel dilatation or wall thickening. No bowel obstruction. APPENDIX: Normal appendix. PERITONEUM: No free fluid. No free air. LYMPH NODES: No enlarged lymph nodes. BLADDER: Over distended and grossly normal in appearance. REPRODUCTIVE: The uterus is normal in size BONES: No acute fracture. Hemangioma in the T11 vertebral body. OTHER FINDINGS: Incompletely imaged and characterized is a 2.6 x 3.3 cm low-density mass in the right breast. IMPRESSION: Over distended urinary bladder. No nephrolithiasis, hydronephrosis or obstructive uropathy. Scattered colonic diverticulosis without CT evidence for acute diverticulitis. Stable 8 mm adenoma in the left adrenal gland. Fluid density 2.6 x 3.3 cm mass in the right breast pathologically proven to be atypical papillary lesion. Clinical follow-up is advised.
[2018-08-08] MEDS ORDERED: Morphine 4 MG/ML VIAL ONE (13:15)
[2018-08-08 13:31] VITALS: BP 150/73; PULSE 78; TEMP 98; O2SAT 98
== END 2018-08-08 13:31 | disposition home or self-care (01) ==
LOC: C.ER 08:38
DX: K85.90 Acute pancreatitis without necrosis or infection, unspecified (principal); I10 Essential (primary) hypertension; R10.30 Lower abdominal pain, unspecified
CPT/HCPCS: 74176; 80053; 81001; 83690; 85025; 87086; 96361; 96374; 96375; 99284; J1885; J2270; J2405; J7030

== ENCOUNTER 2018-09-12 09:29 | Emergency (ER) | payer MEDICARE, MEDICAID ==
[2018-09-12 09:30] VITALS: BMI 31.1
--- NOTE | 2018-09-12 11:13 | C.PDOC ---
History Of Present Illness 68 y/o female comes in to ED complaining of pain in her right breast. She states that she had a tumor removed from the right breast by Dr. Pratt on 07/06/18 and has been seen several times in the ER for pain and drainage, or bleeding from the right breast. Patient also states that yesterday and today she had a few episodes of bleeding. She reports she has not seen her surgeon because I lost the address. Otherwise patient has no other complaints. Time Seen by Provider: 09/12/18 09:38 Chief Complaint (Nursing): Breast Problem History Per: Patient History/Exam Limitations: no limitations Onset/Duration Of Symptoms: Days Current Symptoms Are (Timing): Still Present Past Medical History Reviewed: Historical Data, Nursing Documentation, Vital Signs Vital Signs: Last Vital Signs Temp 97.4 F L 09/12/18 09:38 Pulse 64 09/12/18 09:38 Resp 16 09/12/18 09:38 BP 122/70 09/12/18 09:38 Pulse Ox 97 09/12/18 09:38 - Medical History PMH: Anxiety, Asthma (NEVER HOSPITALIZED"IT WENT AWAY"), Bipolar Disorder, Depression, Gastritis, HTN, Hypercholesterolemia, Schizophrenia Denies: Diabetes, Hepatitis, Chronic Kidney Disease Surgical History: Endoscopy - [facility] Procedures GROUP PSYCHOTHERAPY (05/19/18) Family History: States: No Known Family Hx - Social History Hx Alcohol Use: No Hx Substance Use: No - Immunization History Hx Tetanus Toxoid Vaccination: (unk) Hx Influenza Vaccination: Yes Hx Pneumococcal Vaccination: Yes (07/2015) Review Of Systems Constitutional: Negative for: Fever, Chills Musculoskeletal: Positive for: Other (Right Breast Pain) Skin: Negative for: Rash Physical Exam - Physical Exam Appears: Non-toxic, No Acute Distress, Other (Bizarre affect) Skin: Warm, Dry Head: Atraumatic, Normacephalic Eye(s): bilateral: Normal Inspection Oral Mucosa: Moist Neck: Supple Chest: Other (Right breast: well healed surgical scar at 9 and 10 o clock, no erythema, fluctuance, induration, bleeding, or discharge) Cardiovascular: Rhythm Regular, No Murmur Respiratory: Normal Breath Sounds, No Rales, No Rhonchi, No Wheezing Extremity: Bilateral: Normal Color And Temperature, Normal ROM Neurological/Psych: Oriented x3, Normal Speech ED Course And Treatment O2 Sat by Pulse Oximetry: 97 (RA) Pulse Ox Interpretation: Normal - CT Scan/US Breast US Other Rad Studies (CT/US): Read By Radiologist, Radiology Report Reviewed CT/US Interpretation: FINDINGS: Please noted this study is not for breast tumor diagnosis. The study was performed for emergency evaluation for right breast fluid collection or abscess formation. The study demonstrates complex fluid or cystic structure with thin septation at the right breast retroareolar oral area 11-12 o'clock measures 2.6 x 2.1 x 2.98 centimeter. No definite evidence of significant hyperemia adjacent to this complex cystic structure. There is right axilla lymph node measures 2.2 x 0.9 x 1.4 centimeter. IMPRESSION: Limited ultrasound examination of right breast was performed to evaluate for fluid collection or abscess formation in the right breast and was not tailored to evaluate for breast neoplasm or residual tumor. Complex cystic structure with thin septation noted at the 11-12 o'clock retroareolar area may represent postsurgical changes versus less likely abscess formation. Mildly enlarged right axilla lymph node measures 2.2 centimeter. Follow-up re-evaluation by diagnostic ultrasound and mammogram is recommended. BI-RADS: 0 incomplete evaluation. Progress Note: Patient sent for an US for fluid collection. Motrin and tylenol PO administered. Patient is to follow up with surgery. Disposition Counseled Patient/Family Regarding: Studies Performed, Diagnosis, Need For Followup, Rx Given - Disposition Referrals: Lorenzo Pratt MD [Staff Provider] - Disposition: HOME/ ROUTINE Disposition Time: 12:50 Condition: STABLE Additional Instructions: FOLLOW UP WITH YOUR SURGEON WITHIN 1 WEEK USE MEDICATIONS NEEDED FOR PAIN RETURN TO EMERGENCY ROOM IF SYMPTOMS BECOME WORSE SIGUE CON TU CIRUJANO EN DAVID SEMANA UTILICE MEDICAMENTOS SONAM SE NECESITA PARA EL DOLOR VUELVA A LA VICKIE DE EMERGENCIA SI LOS SNTOMAS SE HACEN PEOR Prescriptions: Naproxen 375 mg PO BID PRN #20 tablet PRN Reason: pain Instructions: Mastalgia (DC) Forms: [employer] (Romansh) Print Language: YI - Clinical Impression Clinical Impression: Pain of right breast, Breast cyst - Scribe Statement The provider has reviewed the documentation as recorded by the Teresa Padilla Provider Attestation: All medical record entries made by the Scribe were at my direction and personally dictated by me. I have reviewed the chart and agree that the record accurately reflects my personal performance of the history, physical exam, medical decision making, and the department course for this patient. I have also personally directed, reviewed, and agree with the discharge instructions and disposition.
[2018-09-12 11:52] VITALS: BP 135/77; PULSE 69; RESP 18; TEMP 98.2
--- NOTE | 2018-09-12 11:58 | US ---
Date of service: 09/12/2018 PROCEDURE: Limited ultrasound examination of the right breast HISTORY: right breast pain, surgery in Jun 2018. COMPARISON: Comparison is made with the previous study dated 05/04/2018 TECHNIQUE: Limited emergency ultrasound examination of the right breast was performed. FINDINGS: Please noted this study is not for breast tumor diagnosis. The study was performed for emergency evaluation for right breast fluid collection or abscess formation. The study demonstrates complex fluid or cystic structure with thin septation at the right breast retroareolar oral area 11-12 o'clock measures 2.6 x 2.1 x 2.98 centimeter. No definite evidence of significant hyperemia adjacent to this complex cystic structure. There is right axilla lymph node measures 2.2 x 0.9 x 1.4 centimeter. IMPRESSION: Limited ultrasound examination of right breast was performed to evaluate for fluid collection or abscess formation in the right breast and was not tailored to evaluate for breast neoplasm or residual tumor. Complex cystic structure with thin septation noted at the 11-12 o'clock retroareolar area may represent postsurgical changes versus less likely abscess formation. Mildly enlarged right axilla lymph node measures 2.2 centimeter. Follow-up re-evaluation by diagnostic ultrasound and mammogram is recommended. BI-RADS: 0 incomplete evaluation.
[2018-09-12 12:02] VITALS: O2SAT 97
== END 2018-09-12 12:57 | disposition home or self-care (01) ==
LOC: C.ER 09:29
DX: N64.4 Mastodynia (principal); N60.01 Solitary cyst of right breast; I10 Essential (primary) hypertension; E78.00 Pure hypercholesterolemia, unspecified; F20.9 Schizophrenia, unspecified

== ENCOUNTER 2018-10-05 07:43 | Emergency (ER) | payer MEDICARE, MEDICAID ==
[2018-10-05 07:50] VITALS: BMI 31.4
[2018-10-05] MEDS ORDERED: Sodium Chloride 0.9% 500 ML IV ONE ×3 (08:42→10:06)
--- NOTE | 2018-10-05 08:53 | C.PDOC ---
History Of Present Illness 68 year old female with PMHx of hypertension, hypercholestrolemia, and asthma presents to ED with dizziness, vomiting, diarrhea, and chills for the past 3 days. Patient states that she has had constipation for 1 week. She states her PMD gave her a 'little blue pill," which is giving her diarrhea. Patient states that she stopped taking the pill 2 days ago, but still has diarrhea. She states that she has had diarrhea 1-3 times. She states the pain is in her right lower quadrant describes the pain as stabbing, non-radiating, and 8/10 in severity. Patient has a past surgical history of breast surgery. Patient [place] in a detention. Patient denies fever, diaphoresis, runny nose, sick contacts, recent travel, and recent hospitalization. Time Seen by Provider: 10/05/18 07:52 Chief Complaint (Nursing): GI Problem History Per: Patient History/Exam Limitations: no limitations Onset/Duration Of Symptoms: Days (3) Current Symptoms Are (Timing): Still Present Location Of Pain/Discomfort: RLQ Radiation Of Pain To:: None Quality Of Discomfort: Stabbing Associated Symptoms: Chills, Vomiting, Diarrhea, Constipation. denies: Fever, Nausea Exacerbating Factors: None Alleviating Factors: None Recent travel outside of the [place]: No Past Medical History Reviewed: Historical Data, Nursing Documentation, Vital Signs Vital Signs: Last Vital Signs Temp 97.6 F 10/05/18 07:50 Pulse 58 L 10/05/18 08:10 Resp 12 10/05/18 08:10 BP 163/100 H 10/05/18 08:10 Pulse Ox 100 10/05/18 07:50 - Medical History PMH: Anxiety, Asthma (NEVER HOSPITALIZED"IT WENT AWAY"), Bipolar Disorder, Depression, Gastritis, HTN, Hypercholesterolemia, Schizophrenia Denies: Diabetes, Hepatitis, Chronic Kidney Disease Surgical History: Endoscopy Other Surgeries: Breast surgery - [facility] Procedures GROUP PSYCHOTHERAPY (05/19/18) Family History: States: Unknown Family Hx - Social History Hx Alcohol Use: No Hx Substance Use: No - Immunization History Hx Tetanus Toxoid Vaccination: No Hx Influenza Vaccination: Yes Hx Pneumococcal Vaccination: Yes (07/2015) Review Of Systems Constitutional: Positive for: Chills. Negative for: Fever, Sweats, Weakness Gastrointestinal: Positive for: Vomiting, Abdominal Pain (right lower quadrant), Diarrhea, Constipation. Negative for: Nausea Neurological: Negative for: Weakness, Numbness, Dizziness Physical Exam - Physical Exam Appears: Non-toxic, No Acute Distress Skin: Normal Color, Warm, Dry Head: Atraumatic, Normacephalic Oral Mucosa: Moist Neck: Normal ROM, Supple Chest: Symmetrical, No Deformity Cardiovascular: Rhythm Regular, No Murmur Respiratory: No Accessory Muscle Use, No Rales, No Rhonchi, No Wheezing Gastrointestinal/Abdominal: Soft, No Tenderness Extremity: Capillary Refill (<2 seconds) Extremity: Bilateral: Normal Color And Temperature Neurological/Psych: Oriented x3, Normal Speech, Normal Cognition ED Course And Treatment - Laboratory Results Result Diagrams: 10/05/18 08:53 10/05/18 08:53 O2 Sat by Pulse Oximetry: 100 (in RA) Progress Note: Labs ordered with CBC, CMP, and UA. Patient given Zofran IVP, Toradol IVP, and IV fluids. Re-evaluation. Patient feels better. Discussed results and plan with patient who expresses understanding. All questions answered and there is agreement with the plan to discharge home with instructions. Patient stable for discharge. Return if symptoms persist or worsen. Disposition - Disposition Referrals: [facility] [Outside] Disposition: HOME/ ROUTINE Additional Instructions: FOLLOW UP WITH YOUR DOCTOR/CLINIC IN 1-2 DAYS USE MEDICATIONS DIRECTED/NEEDED DRINK PLENTY OF CLEAR FLUIDS RETURN TO ER IF SYMPTOMS WORSEN Prescriptions: Dicyclomine [Bentyl] 20 mg PO Q6 PRN #12 tab PRN Reason: ABDOMINAL CRAMPING Ondansetron ODT [Zofran ODT] 1 odt PO BID PRN #15 odt PRN Reason: Nausea/Vomiting Instructions: Diarrhea and Traveler's Diarrhea, Adult (DC), Nausea and Vomiting, Adult (DC) Forms: [employer] (Greenlandic) Print Language: CITIZEN OF [place] - Clinical Impression Clinical Impression: Nausea & vomiting, Acute diarrhea, Elevated lipase - Scribe Statement The provider has reviewed the documentation as recorded by the Scribe (Verito Storm) All medical record entries made by the Scribe were at my direction and person ally dictated by me. I have reviewed the chart and agree that the record accurately reflects my personal performance of the history, physical exam, medical decision making, and the department course for this patient. I have also personally directed, reviewed, and agree with the discharge instructions and disposition.
[2018-10-05 08:57] LABS: BASO % 0.4 % (0.0-2.0); EOS % 0.4 % (0.0-4.0); HEMOGLOBIN 12.1 g/dL (11.0-16.0); LYMPH # 1.7 K/uL (1.0-4.3); LYMPH % 34.9 % (20.0-40.0); MEAN CELL VOLUME 78.3 fL (81.0-99.0); MEAN CORPUSCULAR HEMOGLOBIN 24.9 pg (27.0-31.0); MEAN CORPUSCULAR HGB CONC 31.8 g/dL (33.0-37.0); MEAN PLATELET VOLUME 8.5 fL (7.2-11.7); MONO # 0.3 K/uL (0.0-0.8); MONO % 6.3 % (0.0-10.0); NEUT # 2.8 K/uL (1.8-7.0); NRBC % 0.1 % (0.0-2.0); RBC 4.84 Mil/uL (3.80-5.20); RED CELL DISTRIBUTION WIDTH 15.2 % (11.5-14.5); WHITE BLOOD COUNT 4.9 K/uL (4.8-10.8)
[2018-10-05 09:05] LABS: SQUAMOUS EPITHIAL < 1 /hpf (0-5); URINE BILIRUBIN NEGATIVE (NEGATIVE); URINE BLOOD NEGATIVE (NEGATIVE); URINE CLARITY Clear (Clear); URINE COLOR Colorless (YELLOW); URINE GLUCOSE (UA) NORMAL (Normal); URINE LEUKOCYTE ESTERASE NEG Leu/uL (Negative); URINE PROTEIN NEGATIVE (NEGATIVE); URINE UROBILINOGEN NORMAL mg/dL (0.2-1.0)
[2018-10-05 09:11] LABS: ALB/GLOB RATIO 1.5 (1.0-2.1); ALBUMIN 4.8 g/dL (3.5-5.0); ALT/SGPT 21 U/L (9-52); AST/SGOT 35 U/L (14-36); BLOOD UREA NITROGEN 11 mg/dL (7-17); CALCIUM 9.2 mg/dl (8.6-10.4); GFR NON-AFRICAN AMERICAN > 60; LIPASE 459 U/L (23-300)
[2018-10-05] MEDS ORDERED: Midazolam 2 MG/2 ML VIAL ONE (09:56)
[2018-10-05 11:21] VITALS: BP 114/71; PULSE 49; RESP 16; TEMP 97.3
[2018-10-05 12:49] VITALS: O2SAT 100
== END 2018-10-05 11:21 | disposition home or self-care (01) ==
LOC: C.ER 07:43
DX: R19.7 Diarrhea, unspecified (principal); R11.2 Nausea with vomiting, unspecified; R74.8 Abnormal levels of other serum enzymes; E78.00 Pure hypercholesterolemia, unspecified; I10 Essential (primary) hypertension
CPT/HCPCS: 80053; 81001; 83690; 85025; 96374; 96375; 99285; J1885; J2405; J7040

== ENCOUNTER 2018-10-08 09:40 | Outpatient (CLI) | payer MEDICARE, MEDICAID | END 2018-10-08 09:41 | disposition home or self-care (01) | LOC: C.MAMMO 09:40 | DX: N64.4 Mastodynia (principal); T88.8XXA Other specified complications of surgical and medical care, not elsewhere classified, initial encounter ==

== ENCOUNTER 2018-11-18 17:38 | Inpatient (IN) | payer MEDICARE, MEDICAID ==
[2018-11-18 17:41] VITALS: BMI 29.8
[2018-11-18 18:26] LABS: BASO % 0.4 % (0.0-2.0); EOS % 0.3 % (0.0-4.0); HEMOGLOBIN 11.5 g/dL (11.0-16.0); LYMPH # 2.2 K/uL (1.0-4.3); MEAN CORPUSCULAR HEMOGLOBIN 24.8 pg (27.0-31.0); MEAN CORPUSCULAR HGB CONC 32.6 g/dL (33.0-37.0); MEAN PLATELET VOLUME 8.2 fL (7.2-11.7); MONO # 0.4 K/uL (0.0-0.8); NEUT # 2.4 K/uL (1.8-7.0); NEUT % 48.3 % (50.0-75.0); NRBC % 0.3 % (0.0-2.0); RBC 4.63 Mil/uL (3.80-5.20); RED CELL DISTRIBUTION WIDTH 14.6 % (11.5-14.5)
--- NOTE | 2018-11-18 18:26 | C.PDOC ---
History Of Present Illness 68 y/o female,w/PMhx of HTN, asthma, bipolar disorder, and anxiety, brought to ER by EMS for evaluation of chest pain s/p fall today. Patient states that she began feeling dizzy when she was walking down the steps in her apartment. Patient walks with a cane. She lost her balance and she fell backwards hitting her head. She notes that she began having chest pain after the fall. She reports that she is not sure why she fell. She still has chest pain. Denies having LOC, SOB, fever,chills, visual changes, nausea,vomiting, weakness, and disorientation. - HPI Time Seen by Provider: 11/18/18 17:50 Chief Complaint (Nursing): Trauma History Per: Patient History/Exam Limitations: no limitations Onset/Duration Of Symptoms: Hrs Severity: Moderate Past Medical History Reviewed: Historical Data, Nursing Documentation, Vital Signs Vital Signs: Last Vital Signs Temp 97.6 F 11/18/18 17:41 Pulse 55 L 11/18/18 17:41 Resp 20 11/18/18 17:41 BP 116/55 L 11/18/18 17:41 Pulse Ox 98 11/18/18 17:56 - Medical History PMH: Anxiety, Asthma (NEVER HOSPITALIZED"IT WENT AWAY"), Bipolar Disorder, Depression, Gastritis, HTN, Hypercholesterolemia, Personality Disorder, Schizophrenia Denies: Diabetes, Hepatitis, Chronic Kidney Disease Surgical History: Endoscopy - [facility] Procedures GROUP PSYCHOTHERAPY (05/19/18) Family History: States: No Known Family Hx - Social History Hx Alcohol Use: No Hx Substance Use: No - Immunization History Hx Tetanus Toxoid Vaccination: No Hx Influenza Vaccination: Yes Hx Pneumococcal Vaccination: Yes (07/2015) Review Of Systems Constitutional: Negative for: Fever, Chills Eyes: Negative for: Vision Change Cardiovascular: Positive for: Chest Pain Respiratory: Negative for: Shortness of Breath Gastrointestinal: Negative for: Nausea, Vomiting Neurological: Negative for: Headache, Dizziness Physical Exam - Physical Exam Appears: No Acute Distress Skin: Normal Color, Warm, Dry, Other (skin intact, no signs of injury) Head: Atraumatic, Normacephalic Eye(s): bilateral: Normal Inspection, PERRL, EOMI Nose: Normal Oral Mucosa: Moist Neck: Supple Chest: Symmetrical Cardiovascular: Rhythm Regular Respiratory: Normal Breath Sounds, No Rales, No Rhonchi, No Wheezing Gastrointestinal/Abdominal: Normal Exam, Soft, No Tenderness, No Guarding, No Rebound Extremity: Normal ROM Neurological/Psych: Oriented x3, Normal Speech (mildly slurred speech), Normal Motor, Normal Sensation, Other (pt is able to follow commands, no weakness, no ataxia) ED Course And Treatment - Laboratory Results Result Diagrams: 11/18/18 18:12 11/18/18 18:12 Lab Interpretation: No Acute Changes ECG: Interpreted By Me ECG Rhythm: Sinus Bradycardia ECG Interpretation: Abnormal O2 Sat by Pulse Oximetry: 98 (RA) Pulse Ox Interpretation: Normal - Radiology CXR: Viewed By Me, Read By Radiologist CXR Interpretation: Yes: No Acute Disease - CT Scan/US CT Head Other Rad Studies (CT/US): Read By Radiologist, Radiology Report Reviewed CT/US Interpretation: EXAM: CT Head with Intravenous Contrast. CLINICAL HISTORY: Fall head injury. TECHNIQUE: Axial computed tomography images of the head/brain with intravenous contrast. CONTRAST: With; VISI 320 100MLS. COMPARISON: None provided. FINDINGS: BRAIN. No acute intraparenchymal hemorrhage. No mass lesion. No abnormal enhancement. No CT evidence for acute territorial infarct. No midline shift or extra-axial collections. VENTRICLES: No hydrocephalus. ORBITS: The orbits are unremarkable. SINUSES AND MASTOIDS: There are inflammatory changes within the left sphenoid and ethmoid sinuses. BONES: No fracture. IMPRESSION: No acute intracranial abnormality. Inflammatory changes within the left sphenoid and ethmoid sinuses. Clinical correlation advised. - Physician Consult Information Time Consulting Physician Contacted: 20:18 Physician Contacted: Dennis Ramos Outcome Of Conversation: Patient to be admitted to [facility] for bradycardia with chest pain. Medical Decision Making Medical Decision Making: Plan: --Labs --ECG --CXR --CT-Head Disposition - Disposition Disposition: HOSPITALIZED Disposition Time: 20:18 Condition: STABLE - POA Present On Arrival: Falls Or Trauma - Clinical Impression Clinical Impression: Chest discomfort, Sinus bradycardia, Dizziness, Head injury due to trauma - Scribe Statement The provider has reviewed the documentation as recorded by the Juanibpeggy Domínguez Provider Attestation: All medical record entries made by the Scribe were at my direction and personally dictated by me. I have reviewed the chart and agree that the record accurately reflects my personal performance of the history, physical exam, medical decision making, and the department course for this patient. I have also personally directed, reviewed, and agree with the discharge instructions and disposition.
[2018-11-18 18:29] LABS: MEAN CELL VOLUME 76.2 fL (81.0-99.0)
[2018-11-18 18:34] LABS: ALB/GLOB RATIO 1.6 (1.0-2.1); ALBUMIN 4.2 g/dL (3.5-5.0); ALT/SGPT 16 U/L (9-52); AST/SGOT 27 U/L (14-36); BLOOD UREA NITROGEN 8 mg/dL (7-17); CALCIUM 8.6 mg/dl (8.6-10.4); GFR NON-AFRICAN AMERICAN > 60
--- NOTE | 2018-11-18 18:37 | RAD ---
Date of service: 11/18/2018 PROCEDURE: CHEST RADIOGRAPH, 1 VIEW HISTORY: chest pain COMPARISON: 05/18/2018. FINDINGS: LUNGS: The lungs are well inflated and clear. PLEURA: No pneumothorax or pleural effusion. CARDIOVASCULAR: The heart is normal in size. No aortic atherosclerotic calcifications present. OSSEOUS STRUCTURES: Within normal limits for the patient's age. VISUALIZED UPPER ABDOMEN: Normal. OTHER FINDINGS: None. IMPRESSION: No active pulmonary disease.
[2018-11-18] MEDS ORDERED: Iodixanol 320 MG/ML 100 ML BOTTLE IV ONE (19:08)
--- NOTE | 2018-11-18 23:36 | CP.PCM.HP ---
Past Patient History - Infectious Disease Hx of Infectious Diseases: None - Past Medical History & Family History Past Medical History?: Yes - Past Social History Smoking Status: Never Smoked - CARDIAC Hx Hypercholesterolemia: Yes Hx Hypertension: Yes - PULMONARY Hx Asthma: Yes (NEVER HOSPITALIZED"IT WENT AWAY") - HEENT Hx HEENT Problems: No - RENAL Hx Chronic Kidney Disease: No - ENDOCRINE/METABOLIC Hx Endocrine Disorders: No Hx Diabetes Mellitus Type 2: Yes (Denies 04/08/17) - INTEGUMENTARY Other/Comment: HX: RIGHT BREAST LESION - MUSCULOSKELETAL/RHEUMATOLOGICAL Hx Degenerative Joint Disease: Yes - GASTROINTESTINAL Hx Gastritis: Yes - PSYCHIATRIC Hx Anxiety: Yes Hx Bipolar Disorder: Yes Hx Depression: Yes Hx Schizophrenia: Yes Hx Substance Use: No - SURGICAL HISTORY Hx Cataract Extraction: Yes - ANESTHESIA Hx Anesthesia: Yes Hx Anesthesia Reactions: No Hx Malignant Hyperthermia: No Meds Allergies/Adverse Reactions: Allergies Allergy/AdvReac Type Severity Reaction Status Date / Time Penicillins Allergy Intermediate RASH Verified 11/18/18 17:40 Physical Exam - Constitutional Appears: Well - Head Exam Head Exam: ATRAUMATIC, NORMAL INSPECTION, NORMOCEPHALIC - Eye Exam Eye Exam: EOMI, Normal appearance, PERRL Pupil Exam: NORMAL ACCOMODATION, PERRL - ENT Exam ENT Exam: Mucous Membranes Moist, Normal Exam - Neck Exam Neck exam: Positive for: Normal Inspection - Respiratory Exam Respiratory Exam: Decreased Breath Sounds - Cardiovascular Exam Cardiovascular Exam: REGULAR RHYTHM, +S1, +S2 - GI/Abdominal Exam GI & Abdominal Exam: Diminished Bowel Sounds, Soft - Rectal Exam Rectal Exam: Deferred - Neurological Exam Neurological exam: Oriented x3 Results - Vital Signs Recent Vital Signs: Last Vital Signs Temp 97.7 F 11/18/18 21:44 Pulse 58 L 11/18/18 21:48 Resp 20 11/18/18 21:44 BP 128/64 11/18/18 21:44 Pulse Ox 94 L 11/18/18 21:44 - Labs Result Diagrams: 11/18/18 18:12 11/18/18 18:12 Labs: Laboratory Results - last 24 hr 11/18/18 11/18/18 11/18/18 17:54 18:12 18:12 WBC 5.0 RBC 4.63 Hgb 11.5 Hct 35.3 MCV 76.2 L D MCH 24.8 L MCHC 32.6 L RDW 14.6 H Plt Count 188 MPV 8.2 Neut % (Auto) 48.3 L Lymph % (Auto) 44.0 H Wilkinson % (Auto) 7.0 Eos % (Auto) 0.3 Baso % (Auto) 0.4 Neut # (Auto) 2.4 Lymph # (Auto) 2.2 Wilkinson # (Auto) 0.4 Eos # (Auto) 0.0 Baso # (Auto) 0.0 Sodium 132 Potassium 3.5 L Chloride 96 L Carbon Dioxide 24 Anion Gap 16 BUN 8 Creatinine 0.8 Est GFR ( Amer) > 60 Est GFR (Non-Af Amer) > 60 POC Glucose (mg/dL) 119 H Random Glucose 110 H D Calcium 8.6 Total Bilirubin 0.3 AST 27 ALT 16 Alkaline Phosphatase 57 Troponin I < 0.0120 Total Protein 6.9 Albumin 4.2 Globulin 2.6 Albumin/Globulin Ratio 1.6
[2018-11-19] MEDS: Potassium Chloride 20 mEq ER Tab PO SCH (07:59)
--- NOTE | 2018-11-19 08:15 | CT ---
Date of service: 11/18/2018 PROCEDURE: CT HEAD WITH CONTRAST HISTORY: head injury COMPARISON: None available. TECHNIQUE: Axial computed tomography images were obtained through the head/brain with intravenous contrast. Contrast dose: 100 mL Visipaque 320 Radiation dose: Total exam DLP = 1063.15 mGy-cm. This CT exam was performed using one or more of the following dose reduction techniques: Automated exposure control, adjustment of the mA and/or kV according to patient size, and/or use of iterative reconstruction technique. FINDINGS: HEMORRHAGE: No intracranial hemorrhage. BRAIN: There are mild chronic microangiopathic changes. There is no mass, mass effect or abnormal extra-axial fluid collection. There is no territorial infarction. The midline sagittal structures are normal. There is no leptomeningeal or parenchymal enhancement VENTRICLES: There is mild age-related global parenchymal volume loss and proportionate enlargement of the ventricles and cortical sulci. CALVARIUM: There is normal bone marrow signal pattern. PARANASAL SINUSES: There is mild mucosal thickening in the left posterior ethmoid air cells and moderate thickening in the left sphenoid chamber MASTOID AIR CELLS: Unremarkable as visualized. No mastoid effusion. OTHER FINDINGS: None. IMPRESSION: No acute intracranial abnormality. Mild prominent left posterior ethmoid and moderate chronic sphenoid sinusitis. A preliminary report was provided by [facility].
[2018-11-19 08:42] LABS: CK-MB 1.01 ng/mL (0.0-3.38)
--- NOTE | 2018-11-19 09:29 | CP.PCM.CON ---
History of Present Illness - History of Present Illness History of Present Illness: CC: Chest pain HPI: 68 year old female with severe chest pain. Pain is located in the retrosternum. Pain is throbbing in character. She is reporting it occured in the context of mechanical fall with trauma to that area. She is denying presyncope or sycnope. Review of Systems - Review of Systems All systems: reviewed and no additional remarkable complaints except Past Patient History - Infectious Disease Hx of Infectious Diseases: None - Past Medical History & Family History Past Medical History?: Yes - Past Social History Smoking Status: Never Smoked - CARDIAC Hx Hypercholesterolemia: Yes Hx Hypertension: Yes - PULMONARY Hx Asthma: Yes (NEVER HOSPITALIZED"IT WENT AWAY") - HEENT Hx HEENT Problems: No - RENAL Hx Chronic Kidney Disease: No - ENDOCRINE/METABOLIC Hx Endocrine Disorders: No Hx Diabetes Mellitus Type 2: Yes (Denies 04/08/17) - INTEGUMENTARY Other/Comment: HX: RIGHT BREAST LESION - MUSCULOSKELETAL/RHEUMATOLOGICAL Hx Degenerative Joint Disease: Yes - GASTROINTESTINAL Hx Gastritis: Yes - PSYCHIATRIC Hx Anxiety: Yes Hx Bipolar Disorder: Yes Hx Depression: Yes Hx Schizophrenia: Yes Hx Substance Use: No - SURGICAL HISTORY Hx Cataract Extraction: Yes - ANESTHESIA Hx Anesthesia: Yes Hx Anesthesia Reactions: No Hx Malignant Hyperthermia: No Meds Home Medications: Home Medication List Medication Instructions Recorded Confirmed Type Acetaminophen [Tylenol 325mg tab] 650 mg PO Q6 PRN tab 11/22/18 Rx Aspirin 325 mg PO DAILY tab 11/22/18 Rx Enoxaparin [Lovenox] 40 mg SC DAILY syr 11/22/18 Rx Ergocalciferol [Drisdol 50,000 1 cap PO QWK cap 11/22/18 Rx Intl Units Cap] Fluticasone Propionate [Flonase] 1 spr DUGLAS DAILY bottle 11/22/18 Rx Gabapentin [Neurontin] 400 mg PO Q12 cap 11/22/18 Rx Losartan [Cozaar] 25 mg PO ONCE tab 11/22/18 Rx Losartan [Cozaar] 50 mg PO DAILY tab 11/22/18 Rx Naproxen [Anaprox DS] 550 mg PO ONCE tab 11/22/18 Rx Pantoprazole [Protonix EC Tab] 40 mg PO DAILY ect 11/22/18 Rx Potassium Chloride [K-Dur 20 mEq 40 meq PO BRK tab 11/22/18 Rx ER Tab] Rosuvastatin Calcium [Crestor] 5 mg PO HS tab 11/22/18 Rx Allergies/Adverse Reactions: Allergies Allergy/AdvReac Type Severity Reaction Status Date / Time Penicillins Allergy Intermediate RASH Verified 11/18/18 17:40 - Medications Medications: Current Medications Aspirin (Aspirin) 325 mg PO DAILY [facility] Enoxaparin Sodium (Lovenox) 40 mg SC DAILY [facility] Ergocalciferol (Drisdol 50,000 Intl Units Cap) 1 cap PO QWK [facility] Gabapentin (Neurontin) 400 mg PO Q12 [facility] Losartan Potassium (Cozaar) 25 mg PO DAILY [facility] Pantoprazole Sodium (Protonix Ec Tab) 40 mg PO DAILY [facility] Potassium Chloride (K-Dur 20 Meq Er Tab) 40 meq PO BRK [facility] Last Admin: 11/19/18 07:59 Dose: 40 meq Rosuvastatin Calcium (Crestor) 5 mg PO HS [facility] Sertraline HCl (Zoloft) 100 mg PO DAILY [facility] Trazodone HCl (Desyrel) 100 mg PO QPM [facility] Ziprasidone (Geodon Cap) 40 mg PO BID [facility] Physical Exam - Constitutional Appears: Well, Non-toxic - Head Exam Head Exam: ATRAUMATIC, NORMAL INSPECTION - Eye Exam Eye Exam: PERRL. absent: Scleral icterus - ENT Exam ENT Exam: Normal External Ear Exam, Normal Oropharynx - Neck Exam Neck exam: Positive for: Full Rom. Negative for: Thyromegaly - Respiratory Exam Respiratory Exam: Clear to Auscultation Bilateral, NORMAL BREATHING PATTERN - Cardiovascular Exam Cardiovascular Exam: REGULAR RHYTHM, RRR, +S1, +S2. absent: JVD Additional comments: Chest painful to palpation - GI/Abdominal Exam GI & Abdominal Exam: Normal Bowel Sounds. absent: Organomegaly - Extremities Exam Extremities exam: Negative for: calf tenderness, pedal edema - Neurological Exam Neurological exam: CN II-XII Intact, Oriented x3 - Psychiatric Exam Psychiatric exam: Normal Mood Additional comments: Odd affect Results - Vital Signs Recent Vital Signs: Last Vital Signs Temp 97 F L 11/19/18 07:00 Pulse 55 L 11/19/18 08:00 Resp 20 11/19/18 07:00 BP 166/78 H 11/19/18 07:00 Pulse Ox 100 11/19/18 07:00 - Labs Result Diagrams: 11/22/18 07:47 11/22/18 07:47 Labs: Laboratory Results - last 24 hr 11/18/18 11/18/18 11/18/18 17:54 18:12 18:12 WBC 5.0 RBC 4.63 Hgb 11.5 Hct 35.3 MCV 76.2 L D MCH 24.8 L MCHC 32.6 L RDW 14.6 H Plt Count 188 MPV 8.2 Neut % (Auto) 48.3 L Lymph % (Auto) 44.0 H Metcalfe % (Auto) 7.0 Eos % (Auto) 0.3 Baso % (Auto) 0.4 Neut # (Auto) 2.4 Lymph # (Auto) 2.2 Metcalfe # (Auto) 0.4 Eos # (Auto) 0.0 Baso # (Auto) 0.0 Sodium 132 Potassium 3.5 L Chloride 96 L Carbon Dioxide 24 Anion Gap 16 BUN 8 Creatinine 0.8 Est GFR ( Amer) > 60 Est GFR (Non-Af Amer) > 60 POC Glucose (mg/dL) 119 H Random Glucose 110 H D Calcium 8.6 Total Bilirubin 0.3 AST 27 ALT 16 Alkaline Phosphatase 57 Total Creatine Kinase CK-MB (Mass) Troponin I < 0.0120 Total Protein 6.9 Albumin 4.2 Globulin 2.6 Albumin/Globulin Ratio 1.6 11/19/18 07:57 WBC RBC Hgb Hct MCV MCH MCHC RDW Plt Count MPV Neut % (Auto) Lymph % (Auto) Metcalfe % (Auto) Eos % (Auto) Baso % (Auto) Neut # (Auto) Lymph # (Auto) Metcalfe # (Auto) Eos # (Auto) Baso # (Auto) Sodium Potassium Chloride Carbon Dioxide Anion Gap BUN Creatinine Est GFR ( Amer) Est GFR (Non-Af Amer) POC Glucose (mg/dL) Random Glucose Calcium Total Bilirubin AST ALT Alkaline Phosphatase Total Creatine Kinase 113 CK-MB (Mass) 1.01 Troponin I < 0.0120 Total Protein Albumin Globulin Albumin/Globulin Ratio - EKG Data EKG Interpreted by: Myself EKG shows normal: Sinus rhythm Rate: Normal - Imaging and Cardiology Chest x-ray Status: Image reviewed by me Additional comment: Poor inspiritory effort Assessment & Plan - Assessment and Plan (Free Text) Assessment: 68 year old female chest pain likely due to trauma of chest wall, I ordered serial troponin and EKG they are negative for myocardial infarction HTN chronic and stable on losartan Hyperlipidemia is chronic and stable on crestor Depression/Bipolar is chronic and stable on trazadone, geodone Bradycardia is chronic and stable in sinus without any symptoms. - Date & Time Date: 11/19/18 Time: 09:28
[2018-11-19] MEDS ORDERED: Ergocalciferol 50,000 Intl Units Cap PO SCH (10:00)
[2018-11-19] MEDS: Enoxaparin 40 mg Syringe SC SCH (10:14)
[2018-11-19] MEDS: Pantoprazole 40 mg EC Tab PO SCH (10:14)
--- NOTE | 2018-11-19 10:27 | PCM.PSYCH ---
Initial Psychiatric Evaluation - Initial Psychiatric Evaluation Type of Admission: Voluntary Chief Complaint (in patient's own words): I have depression History of Present Illness and Precipitating Events: Psychiatric consult note: Patient is a 68 year old single female with no children, unemployed and residing in a prison Patient reports she has a history of depression, diagnosed 40 years ago and treated with unknown medication, and medical history of HTN and HLD. She states she was previously living with her sister, but moved to a prison 5 years ago because her sister didn't want her residing with her any longer. Patient reports she attends a program in her prison, sees a psychiatrist regularly who monitors her medications, and is compliant with all medications as prescribed. Patient denies history of anxiety, bipolar disorder, schizophrenia, alcohol or drug use. Denies SI/HI, auditory/visual hallucinations. HPI limited to patient's cognitive ability; she completed her education up to her sophomore year. PsychHx: Depression PMHx: HTN, HLD FamPsychHx: denies Current Medications: Active Medications Generic Name Dose Route Start Last Admin Trade Name Juanita PRN Reason Stop Dose Admin Aspirin 325 mg 11/19/18 10:00 11/19/18 10:14 Aspirin PO 325 mg DAILY HER[facility] Administration Enoxaparin Sodium 40 mg 11/19/18 10:00 11/19/18 10:14 Lovenox SC 40 mg DAILY HER[facility]IO Administration Ergocalciferol 1 cap 11/19/18 10:00 11/19/18 10:15 Drisdol 50,000 Intl Units Cap PO 1 cap QWK HER[facility] Administration Gabapentin 400 mg 11/19/18 10:00 11/19/18 10:15 Neurontin PO 400 mg Q12 HER[facility]IO Administration Losartan Potassium 25 mg 11/19/18 10:00 11/19/18 10:15 Cozaar PO 25 mg DAILY HER[facility]IO Administration Pantoprazole Sodium 40 mg 11/19/18 10:00 11/19/18 10:14 Protonix Ec Tab PO 40 mg DAILY HER[facility] Administration Potassium Chloride 40 meq 11/19/18 08:00 11/19/18 07:59 K-Dur 20 Meq Er Tab PO 40 meq BRK HER[facility] Administration Rosuvastatin Calcium 5 mg 11/19/18 22:00 Crestor PO HS HER[facility]IO Sertraline HCl 100 mg 11/19/18 10:00 11/19/18 10:15 Zoloft PO 100 mg DAILY [facility] Administration Trazodone HCl 100 mg 11/19/18 18:00 Desyrel PO QPM HER[facility]IO Ziprasidone 40 mg 11/19/18 10:00 11/19/18 10:15 Geodon Cap PO 40 mg BID HER[facility]IO Administration Past Psychiatric History - Past Psychiatric History Previous Treatment History: Intensive Outpatient Pertinent Medical Hx (Current Medical&Sleep Prob, Allergies): Allergies Allergy/AdvReac Type Severity Reaction Status Date / Time Penicillins Allergy Intermediate RASH Verified 11/18/18 17:40 Aspirin [Aspirin Chewable] 81 mg PO DAILY 07/09/16 Bisoprolol/HCTZ [Ziac 10-6.25 mg] 1 tab PO DAILY 05/04/17 Cholecalciferol (Vitamin D3) [Vitamin D3] 1,000 unit PO BID 05/04/17 amLODIPine [Norvasc] 10 mg PO DAILY 05/04/17 Atorvastatin [Lipitor] 10 mg PO DAILY tab 05/25/18 Gabapentin [Neurontin] 400 mg PO Q12 cap 05/25/18 Losartan [Cozaar] 25 mg PO DAILY tab 05/25/18 Sertraline [Zoloft] 100 mg PO DAILY #30 tab 05/25/18 traZODone [Desyrel] 100 mg PO QPM 07/02/18 Omeprazole 40 mg PO DAILY 07/23/18 Ziprasidone [Geodon Cap] 40 mg PO BID 07/23/18 Review of Systems - Psychiatric Psychiatric: Depression. absent: Anxiety, Auditory Hallucinations, Homicidal Ideation, Suicidal Ideation, Visual Hallucinations Mental Status Examination - Personal Presentation Personal Presentation: Looks stated age - Affect Affect: Constricted - Motor Activity Motor Activity: Psychomotor Agitation (jaw clenching) - Reliability in Providing Information Reliability in Providing Information: Poor, due to cognitve impairment - Speech Speech: Organized - Mood Mood: Neutral - Formal Thought Process Formal Thought Process: No Impairment - Cognitive Functions Orientation: Person, Situation Sensorium: Alert Memory: Recent impaired, as evidence by: Inability to recall events of the day, Remote impaired as evidenced by: Inability to recall sig life events - Risk Risk: Diminished functioning - Strength & Assets Inventory Strength & Assets Inventory: Cooperative DSM 5 DX - DSM 5 DSM 5 Diagnosis: Major Depressive Disorder, recurrent, severe - Recommended/Plan of Treatment Treatment Recommendations and Plan of Treatment: Continue home medications; Geodon, Zoloft, Trazodone All risks, benefits and treatment alternatives of medications discussed; patient understands and agrees Supportive therapy and psycho-education provided Patient to return to prison upon discharge Patient to follow up with psychiatrist as scheduled Teach healthy lifestyle methods(diet, exercise, meditation) Signing off Patient to continue medications Discussed with Dr. Annette Valera, PGY-1 31 min - Smoking Cessation Smoking Cessation Initiated: No Reason for not providing: non-smoker
[2018-11-19 11:46] LABS: CK-MB 0.74 ng/mL (0.0-3.38)
--- NOTE | 2018-11-19 13:38 | CP.PCM.PN ---
Subjective - Date & Time of Evaluation Date of Evaluation: 11/19/18 Time of Evaluation: 10:16 - Subjective Subjective: patient seen today no dizziness, no fever, no vomiting, no nausea, no diarrhea denies sob 68 year old female with history of hypertension, hypercholesterolemia, asthma, bipolar disorder, depression, anxiety and schizophrenia presents to the ED for chest pain after sustaining a fall. Patient reports she was walking down the stairs and suddenly loss balance. Patient denies injuring her head or losing consciousness. Patient reports having mid sternum chest pain that is non radiating, sharp in quality, and reproducible with arm movement. Patient denies having fever, chills, diaphoresis, shortness of breath, abdominal pain, nausea, vomiting, urinary or fecal in continence. Patient examined and seen at bedside. Patient still complains of chest pain whenever she makes a position changes. She is having good appetite. Objective - Vital Signs/Intake and Output Vital Signs (last 24 hours): Temp Pulse Resp BP Pulse Ox 97 F L 55 L 20 166/78 H 100 11/19/18 07:00 11/19/18 08:00 11/19/18 07:00 11/19/18 07:00 11/19/18 07:00 - Medications Medications: Current Medications Aspirin (Aspirin) 325 mg PO DAILY [facility] Last Admin: 11/19/18 10:14 Dose: 325 mg Enoxaparin Sodium (Lovenox) 40 mg SC DAILY [facility] Last Admin: 11/19/18 10:14 Dose: 40 mg Ergocalciferol (Drisdol 50,000 Intl Units Cap) 1 cap PO QWK [facility] Last Admin: 11/19/18 10:15 Dose: 1 cap Gabapentin (Neurontin) 400 mg PO Q12 [facility] Last Admin: 11/19/18 10:15 Dose: 400 mg Losartan Potassium (Cozaar) 25 mg PO DAILY [facility] Last Admin: 11/19/18 10:15 Dose: 25 mg Pantoprazole Sodium (Protonix Ec Tab) 40 mg PO DAILY [facility] Last Admin: 11/19/18 10:14 Dose: 40 mg Potassium Chloride (K-Dur 20 Meq Er Tab) 40 meq PO BRK [facility] Last Admin: 11/19/18 07:59 Dose: 40 meq Rosuvastatin Calcium (Crestor) 5 mg PO HS [facility] Sertraline HCl (Zoloft) 100 mg PO DAILY [facility] Last Admin: 11/19/18 10:15 Dose: 100 mg Trazodone HCl (Desyrel) 100 mg PO QPM [facility] Ziprasidone (Geodon Cap) 40 mg PO BID [facility] Last Admin: 11/19/18 10:15 Dose: 40 mg - Labs Labs: 11/18/18 18:12 11/18/18 18:12 - Constitutional Appears: Well - Head Exam Head Exam: ATRAUMATIC, NORMAL INSPECTION, NORMOCEPHALIC - Eye Exam Eye Exam: EOMI, Normal appearance, PERRL Pupil Exam: NORMAL ACCOMODATION, PERRL - ENT Exam ENT Exam: Mucous Membranes Moist, Normal Exam - Neck Exam Neck Exam: Full ROM, Normal Inspection. absent: Lymphadenopathy - Respiratory Exam Respiratory Exam: Decreased Breath Sounds - Cardiovascular Exam Cardiovascular Exam: REGULAR RHYTHM, +S1, +S2 - GI/Abdominal Exam GI & Abdominal Exam: Soft, Diminished Bowel Sounds - Rectal Exam Rectal Exam: Deferred - Neurological Exam Neurological Exam: Oriented x3 Assessment and Plan - Assessment and Plan (Free Text) Plan: medications reviewed cozaar mike albright cap k-dur lovenox neurontin protnix ec tab zoloft not on b blockeror caclcium channel bloacker labs reviewed vitals reviewed plan of car dw pt d/c planning Chest pain -Likely secondary to muscle strain from s/p fall -EKG shows bradycardia at 49 bpm, no acute ST changes -Troponin negative x3 -Cardiology consulted, Dr. Esparza help appreciated -Previous Echo shows EF 50-55% -ASA 325mg Intraductal papilloma -S/P right breast lumpectomy -Patient has a scheduled outpatient mammogram on 11/25/18 Hypertension -Losartan 25mg Hyperlipidemia -Crestor 5mg Bipolar disorder, depression -Psychiatry consulted, Dr. Bryant help appreciated -Geodon 40mg BID -Zoloft 100mg -Trazodone 100mg Prophylactic measures -Lovenox -Protonix
[2018-11-19 14:34] LABS: CK-MB 0.64 ng/mL (0.0-3.38)
--- NOTE | 2018-11-19 14:49 | CP.PCM.PN ---
<Constanza Gordon - Last Filed: 11/19/18 15:09> Subjective - Date & Time of Evaluation Date of Evaluation: 11/19/18 Time of Evaluation: 09:20 - Subjective Subjective: Medicine Progress Note for Dr. Ramos 68 year old female with history of hypertension, hypercholesterolemia, asthma, bipolar disorder, depression, anxiety and schizophrenia presents to the ED for chest pain after sustaining a fall. Patient reports she was walking down the stairs and suddenly loss balance. Patient denies injuring her head or losing consciousness. Patient reports having mid sternum chest pain that is non radiating, sharp in quality, and reproducible with arm movement. Patient denies having fever, chills, diaphoresis, shortness of breath, abdominal pain, nausea, vomiting, urinary or fecal in continence. Patient examined and seen at bedside. Patient still complains of chest pain whenever she makes a position changes. She is having good appetite. Objective - Vital Signs/Intake and Output Vital Signs (last 24 hours): Temp Pulse Resp BP Pulse Ox 97 F L 55 L 20 166/78 H 100 11/19/18 07:00 11/19/18 08:00 11/19/18 07:00 11/19/18 07:00 11/19/18 07:00 - Medications Medications: Current Medications Aspirin (Aspirin) 325 mg PO DAILY [facility] Last Admin: 11/19/18 10:14 Dose: 325 mg Enoxaparin Sodium (Lovenox) 40 mg SC DAILY [facility] Last Admin: 11/19/18 10:14 Dose: 40 mg Ergocalciferol (Drisdol 50,000 Intl Units Cap) 1 cap PO QWK [facility] Last Admin: 11/19/18 10:15 Dose: 1 cap Gabapentin (Neurontin) 400 mg PO Q12 [facility] Last Admin: 11/19/18 10:15 Dose: 400 mg Losartan Potassium (Cozaar) 25 mg PO DAILY [facility] Last Admin: 11/19/18 10:15 Dose: 25 mg Pantoprazole Sodium (Protonix Ec Tab) 40 mg PO DAILY [facility] Last Admin: 11/19/18 10:14 Dose: 40 mg Potassium Chloride (K-Dur 20 Meq Er Tab) 40 meq PO BRK [facility] Last Admin: 11/19/18 07:59 Dose: 40 meq Rosuvastatin Calcium (Crestor) 5 mg PO HS [facility] Sertraline HCl (Zoloft) 100 mg PO DAILY [facility] Last Admin: 11/19/18 10:15 Dose: 100 mg Trazodone HCl (Desyrel) 100 mg PO QPM [facility] Ziprasidone (Geodon Cap) 40 mg PO BID [facility] Last Admin: 11/19/18 10:15 Dose: 40 mg - Labs Labs: 11/18/18 18:12 11/18/18 18:12 - Additional Findings Additional findings: - Constitutional Appears: No Acute Distress - Head Exam Head Exam: NORMAL INSPECTION - Eye Exam Eye Exam: EOMI, PERRL - ENT Exam ENT Exam: Normal Oropharynx - Neck Exam Neck exam: Positive for: Normal Inspection. Negative for: Lymphadenopathy, Meningismus - Respiratory Exam Respiratory Exam: Clear to Auscultation Bilateral - Cardiovascular Exam Cardiovascular Exam: REGULAR RHYTHM, +S1, +S2 - GI/Abdominal Exam GI & Abdominal Exam: Normal Bowel Sounds, Soft. absent: Organomegaly, Tenderness - Extremities Exam Extremities exam: Positive for: pedal pulses present. Negative for: calf tenderness, pedal edema - Neurological Exam Neurological exam: Alert, CN II-XII Intact, Oriented x3, Reflexes Normal - Psychiatric Exam Psychiatric exam: Normal Mood - Skin Skin Exam: Normal Color, Warm Assessment and Plan - Assessment and Plan (Free Text) Assessment: Chest pain -Likely secondary to muscle strain from s/p fall -EKG shows bradycardia at 49 bpm, no acute ST changes -Troponin negative x3 -Cardiology consulted, Dr. Esparza help appreciated -Previous Echo shows EF 50-55% -ASA 325mg Intraductal papilloma -S/P right breast lumpectomy -Patient has a scheduled outpatient mammogram on 11/25/18 Hypertension -Losartan 25mg Hyperlipidemia -Crestor 5mg Bipolar disorder, depression -Psychiatry consulted, Dr. Bryant help appreciated -Geodon 40mg BID -Zoloft 100mg -Trazodone 100mg Prophylactic measures -Lovenox -Protonix Case discussed with attending physician Dr. Ramos <Dennis Ramos - Last Filed: 11/20/18 16:16> Objective - Vital Signs/Intake and Output Vital Signs (last 24 hours): Temp Pulse Resp BP Pulse Ox 97.8 F 59 L 20 163/67 H 95 11/20/18 07:00 11/20/18 15:39 11/20/18 07:00 11/20/18 14:57 11/20/18 07:00 - Medications Medications: Current Medications Aspirin (Aspirin) 325 mg PO DAILY [facility] Last Admin: 11/20/18 09:13 Dose: 325 mg Enoxaparin Sodium (Lovenox) 40 mg SC DAILY [facility] Last Admin: 11/20/18 09:13 Dose: 40 mg Ergocalciferol (Drisdol 50,000 Intl Units Cap) 1 cap PO QWK [facility] Last Admin: 11/19/18 10:15 Dose: 1 cap Fluticasone Propionate (Flonase) 1 spr DUGLAS DAILY [facility] Gabapentin (Neurontin) 400 mg PO Q12 [facility] Last Admin: 11/20/18 09:13 Dose: 400 mg Losartan Potassium (Cozaar) 25 mg PO DAILY [facility] Last Admin: 11/20/18 09:13 Dose: 25 mg Pantoprazole Sodium (Protonix Ec Tab) 40 mg PO DAILY [facility] Last Admin: 11/20/18 09:13 Dose: 40 mg Potassium Chloride (K-Dur 20 Meq Er Tab) 40 meq PO BRK [facility] Last Admin: 11/20/18 08:37 Dose: 40 meq Rosuvastatin Calcium (Crestor) 5 mg PO HS [facility] Last Admin: 11/19/18 21:18 Dose: 5 mg Sertraline HCl (Zoloft) 100 mg PO DAILY [facility] Last Admin: 11/20/18 09:14 Dose: 100 mg Trazodone HCl (Desyrel) 100 mg PO QPM [facility] Last Admin: 11/19/18 17:30 Dose: 100 mg Ziprasidone (Geodon Cap) 40 mg PO BID [facility] Last Admin: 11/20/18 09:13 Dose: 40 mg - Labs Labs: 11/20/18 08:08 11/20/18 08:08 Attending/Attestation - Attestation I have personally seen and examined this patient.: Yes I have fully participated in the care of the patient.: Yes I have reviewed all pertinent clinical information, including history, physical exam and plan: Yes Notes (Text): 11/20/18 16:16 case seen and d.w staff and resident, concurred with finding and management..
--- NOTE | 2018-11-19 19:37 | CARD ---
APPROVED REPORT Date of service: 11/18/2018 EKG Measurement Heart [id number] <Conclusion> Sinus bradycardia with sinus arrhythmia Otherwise normal ECG
--- NOTE | 2018-11-20 07:36 | CP.PCM.PN ---
<Doroteo Moffett - Last Filed: 11/20/18 13:26> Subjective - Date & Time of Evaluation Date of Evaluation: 11/20/18 Time of Evaluation: 07:29 - Subjective Subjective: Medicine Progress Note for Dr. Ramos Pt seen and examined at bedside. Nursing reports no acute events overnight. Patient found lying comfortably in room 653A. Patient complains of pain in the left breast that radiates to chest. She still complains of persistent mid s ternum chest pain that is ever-present, non radiating, sharp in quality, and reproducible with arm movement. Tolerating diet and voiding without difficulty. Denies fever, chills, dyspnea at rest or exertion. Objective - Vital Signs/Intake and Output Vital Signs (last 24 hours): Temp Pulse Resp BP Pulse Ox 98.3 F 54 L 20 118/64 95 11/20/18 01:26 11/20/18 01:26 11/20/18 01:26 11/20/18 01:26 11/20/18 01:26 - Medications Medications: Current Medications Aspirin (Aspirin) 325 mg PO DAILY [facility] Last Admin: 11/19/18 10:14 Dose: 325 mg Enoxaparin Sodium (Lovenox) 40 mg SC DAILY [facility] Last Admin: 11/19/18 10:14 Dose: 40 mg Ergocalciferol (Drisdol 50,000 Intl Units Cap) 1 cap PO QWK [facility] Last Admin: 11/19/18 10:15 Dose: 1 cap Gabapentin (Neurontin) 400 mg PO Q12 [facility] Last Admin: 11/19/18 21:18 Dose: 400 mg Losartan Potassium (Cozaar) 25 mg PO DAILY [facility] Last Admin: 11/19/18 10:15 Dose: 25 mg Pantoprazole Sodium (Protonix Ec Tab) 40 mg PO DAILY [facility] Last Admin: 11/19/18 10:14 Dose: 40 mg Potassium Chloride (K-Dur 20 Meq Er Tab) 40 meq PO BRK [facility] Last Admin: 11/19/18 07:59 Dose: 40 meq Rosuvastatin Calcium (Crestor) 5 mg PO HS [facility] Last Admin: 11/19/18 21:18 Dose: 5 mg Sertraline HCl (Zoloft) 100 mg PO DAILY [facility] Last Admin: 11/19/18 10:15 Dose: 100 mg Trazodone HCl (Desyrel) 100 mg PO QPM [facility] Last Admin: 11/19/18 17:30 Dose: 100 mg Ziprasidone (Geodon Cap) 40 mg PO BID [facility] Last Admin: 11/19/18 17:30 Dose: 40 mg - Labs Labs: 11/18/18 18:12 11/18/18 18:12 - Additional Findings Additional findings: - Constitutional Appears: No Acute Distress - Head Exam Head Exam: NORMAL INSPECTION - Eye Exam Eye Exam: EOMI, PERRL - ENT Exam ENT Exam: Normal Oropharynx - Neck Exam Neck exam: Positive for: Normal Inspection. Negative for: Lymphadenopathy, Meningismus - Respiratory Exam Respiratory Exam: Clear to Auscultation Bilateral - Cardiovascular Exam Cardiovascular Exam: REGULAR RHYTHM, +S1, +S2 - GI/Abdominal Exam GI & Abdominal Exam: Normal Bowel Sounds, Soft. absent: Organomegaly, Tenderness - Extremities Exam Extremities exam: Positive for: pedal pulses present. Negative for: calf tenderness, pedal edema - Neurological Exam Neurological exam: Alert, CN II-XII Intact, Oriented x3, Reflexes Normal - Psychiatric Exam Psychiatric exam: Normal Mood - Skin Skin Exam: Normal Color, Warm Assessment and Plan - Assessment and Plan (Free Text) Plan: Chest pain, R/o ACS Likely secondary to muscle strain from s/p fall EKG (11/17/18): bradycardia at 49 bpm, no acute ST changes, No QTc elongation Troponin negative x3 A1c: 5.3 (04/2018) Cardiology consulted, Dr. Esparza/Chris help appreciated Recent myocardial perfusion study (03/2018) with no ischemia; EF 70% Previous Echo shows EF 50-55% ASA 325mg f/u lipid panel, A1c Bradycardia Overnight, pt in 40s EKG, Tele shows no sign of heart block (MA interval extension, dropped beat) f/u TSH Intraductal papilloma S/P right breast lumpectomy Patient has a scheduled outpatient mammogram on 11/25/18 Presyncopal episode/Fall CT Head (11/18/18): IMPRESSION: No acute intracranial abnormality. Inflammatory changes within the left sphenoid and ethmoid sinuses. Clinical correlation advised. CXR (11/18/18): NAD EKG (11/17/18): bradycardia at 49 bpm, no acute ST changes, No QTc elongation Hypertension Losartan 25mg Hyperlipidemia Crestor 5mg f/u lipid panel Sinusitis CT Head (11/18/18): IMPRESSION: No acute intracranial abnormality. Inflammatory changes within the left sphenoid and ethmoid sinuses. Clinical correlation advised. Start Flonase intranasally Daily Bipolar disorder, depression Psychiatry consulted, Dr. Bryant help appreciated Geodon 40mg BID Zoloft 100mg Daily Trazodone 100mg QHS Gabapentin 400mg Q12H Prophylactic measures Lovenox 40mg SC Daily Protonix 40mg PO Daily SCDs Disposition: F/u cardiac reccs Case discussed with attending physician Dr. Richard Moffett PGY3 <Dennis Ramos S - Last Filed: 11/20/18 16:13> Objective - Vital Signs/Intake and Output Vital Signs (last 24 hours): Temp Pulse Resp BP Pulse Ox 97.8 F 59 L 20 163/67 H 95 11/20/18 07:00 11/20/18 15:39 11/20/18 07:00 11/20/18 14:57 11/20/18 07:00 - Medications Medications: Current Medications Aspirin (Aspirin) 325 mg PO DAILY [facility] Last Admin: 11/20/18 09:13 Dose: 325 mg Enoxaparin Sodium (Lovenox) 40 mg SC DAILY [facility] Last Admin: 11/20/18 09:13 Dose: 40 mg Ergocalciferol (Drisdol 50,000 Intl Units Cap) 1 cap PO QWK [facility] Last Admin: 11/19/18 10:15 Dose: 1 cap Fluticasone Propionate (Flonase) 1 spr DUGLAS DAILY [facility] Gabapentin (Neurontin) 400 mg PO Q12 [facility] Last Admin: 11/20/18 09:13 Dose: 400 mg Losartan Potassium (Cozaar) 25 mg PO DAILY [facility] Last Admin: 11/20/18 09:13 Dose: 25 mg Pantoprazole Sodium (Protonix Ec Tab) 40 mg PO DAILY [facility] Last Admin: 11/20/18 09:13 Dose: 40 mg Potassium Chloride (K-Dur 20 Meq Er Tab) 40 meq PO BRK [facility] Last Admin: 11/20/18 08:37 Dose: 40 meq Rosuvastatin Calcium (Crestor) 5 mg PO HS [facility] Last Admin: 11/19/18 21:18 Dose: 5 mg Sertraline HCl (Zoloft) 100 mg PO DAILY [facility] Last Admin: 11/20/18 09:14 Dose: 100 mg Trazodone HCl (Desyrel) 100 mg PO QPM [facility] Last Admin: 11/19/18 17:30 Dose: 100 mg Ziprasidone (Geodon Cap) 40 mg PO BID [facility] Last Admin: 11/20/18 09:13 Dose: 40 mg - Labs Labs: 11/20/18 08:08 11/20/18 08:08 Assessment and Plan (1) Chest discomfort Status: Acute (2) Dizziness Status: Acute (3) Head injury due to trauma Status: Acute (4) Sinus bradycardia Status: Acute (5) Abdominal pain Status: Acute (6) Acute diarrhea Status: Acute (7) Acute recurrent sphenoidal sinusitis Status: Acute (8) Adrenal adenoma Status: Acute (9) Alcohol intoxication Status: Acute (10) Anemia Status: Acute (11) Bleeding from breast Status: Acute (12) Bradycardia Status: Acute (13) Breast cyst Status: Acute (14) Breast pain, right Status: Acute (15) Bronchitis Status: Acute (16) Cellulitis Status: Acute (17) Cellulitis of breast Status: Acute (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, acute Status: Acute (19) Cervicitis Status: Acute (20) Chest pain Status: Acute (21) Chest pain of unknown etiology Status: Acute (22) Closed head injury Status: Acute (23) Constipation Status: Acute (24) Contusion of buttock Status: Acute (25) Diarrhea Status: Acute (26) Elevated lipase Status: Acute (27) Fall Status: Acute (28) Gastroenteritis Status: Acute (29) Genital herpes Status: Acute (30) HTN (hypertension) Status: Acute (31) Headache Status: Acute (32) Low back pain Status: Acute (33) MDD (major depressive disorder) Status: Acute (34) Migraine Status: Acute (35) Nausea Status: Acute (36) Nausea & vomiting Status: Acute (37) Pancreatitis Status: Acute (38) Shingles Status: Acute (39) Skin irritation Status: Acute (40) Syncope Status: Acute (41) Syncope Status: Acute (42) Syncope and collapse Status: Acute (43) UTI (urinary tract infection) Status: Acute (44) Vertigo Status: Acute (45) Vertigo Status: Acute (46) Vomiting Status: Acute (47) Schizoaffective disorder Status: Chronic Attending/Attestation - Attestation I have personally seen and examined this patient.: Yes I have fully participated in the care of the patient.: Yes I have reviewed all pertinent clinical information, including history, physical exam and plan: Yes Notes (Text): 11/20/18 16:13 case seen and dSerenityw staff and resident, concurred with finding and management..
[2018-11-20 08:21] LABS: BASO % 0.1 % (0.0-2.0); EOS % 0.7 % (0.0-4.0); HEMOGLOBIN 12.2 g/dL (11.0-16.0); LYMPH # 1.4 K/uL (1.0-4.3); LYMPH % 49.3 % (20.0-40.0); MEAN CELL VOLUME 76.6 fL (81.0-99.0); MEAN CORPUSCULAR HEMOGLOBIN 25.6 pg (27.0-31.0); MEAN CORPUSCULAR HGB CONC 33.4 g/dL (33.0-37.0); MEAN PLATELET VOLUME 8.3 fL (7.2-11.7); MONO # 0.3 K/uL (0.0-0.8); MONO % 10.1 % (0.0-10.0); NEUT # 1.1 K/uL (1.8-7.0); NEUT % 39.8 % (50.0-75.0); RBC 4.79 Mil/uL (3.80-5.20); RED CELL DISTRIBUTION WIDTH 14.3 % (11.5-14.5); WHITE BLOOD COUNT 2.8 K/uL (4.8-10.8)
[2018-11-20] MEDS: Potassium Chloride 20 mEq ER Tab PO SCH (08:37)
[2018-11-20 08:46] LABS: ALB/GLOB RATIO 1.5 (1.0-2.1); ALT/SGPT 22 U/L (9-52); AST/SGOT 23 U/L (14-36); BLOOD UREA NITROGEN 9 mg/dL (7-17); CALCIUM 8.9 mg/dl (8.6-10.4); GFR NON-AFRICAN AMERICAN > 60
[2018-11-20] MEDS: Pantoprazole 40 mg EC Tab PO SCH (09:13)
[2018-11-20] MEDS: Enoxaparin 40 mg Syringe SC SCH (09:13)
--- NOTE | 2018-11-20 14:02 | CP.PCM.PN ---
Subjective - Date & Time of Evaluation Date of Evaluation: 11/20/18 Time of Evaluation: 14:00 - Subjective Subjective: Events reviewed Objective - Vital Signs/Intake and Output Vital Signs (last 24 hours): Temp Pulse Resp BP Pulse Ox 97.8 F 54 L 20 156/81 H 95 11/20/18 07:00 11/20/18 13:26 11/20/18 07:00 11/20/18 07:00 11/20/18 07:00 - Medications Medications: Current Medications Aspirin (Aspirin) 325 mg PO DAILY [facility] Last Admin: 11/20/18 09:13 Dose: 325 mg Enoxaparin Sodium (Lovenox) 40 mg SC DAILY [facility] Last Admin: 11/20/18 09:13 Dose: 40 mg Ergocalciferol (Drisdol 50,000 Intl Units Cap) 1 cap PO QWK [facility] Last Admin: 11/19/18 10:15 Dose: 1 cap Fluticasone Propionate (Flonase) 1 spr DUGLAS DAILY [facility] Gabapentin (Neurontin) 400 mg PO Q12 [facility] Last Admin: 11/20/18 09:13 Dose: 400 mg Losartan Potassium (Cozaar) 25 mg PO DAILY [facility] Last Admin: 11/20/18 09:13 Dose: 25 mg Pantoprazole Sodium (Protonix Ec Tab) 40 mg PO DAILY [facility] Last Admin: 11/20/18 09:13 Dose: 40 mg Potassium Chloride (K-Dur 20 Meq Er Tab) 40 meq PO BRK [facility] Last Admin: 11/20/18 08:37 Dose: 40 meq Rosuvastatin Calcium (Crestor) 5 mg PO HS [facility] Last Admin: 11/19/18 21:18 Dose: 5 mg Sertraline HCl (Zoloft) 100 mg PO DAILY [facility] Last Admin: 11/20/18 09:14 Dose: 100 mg Trazodone HCl (Desyrel) 100 mg PO QPM [facility] Last Admin: 11/19/18 17:30 Dose: 100 mg Ziprasidone (Geodon Cap) 40 mg PO BID [facility] Last Admin: 11/20/18 09:13 Dose: 40 mg - Labs Labs: 11/20/18 08:08 11/20/18 08:08 - Constitutional Appears: Well, Non-toxic - Head Exam Head Exam: ATRAUMATIC, NORMAL INSPECTION - Eye Exam Eye Exam: PERRL. absent: Scleral icterus - ENT Exam ENT Exam: Mucous Membranes Moist Additional comments: Poor dentition - Neck Exam Neck Exam: absent: Lymphadenopathy, Thyromegaly - Respiratory Exam Respiratory Exam: Clear to Ausculation Bilateral, NORMAL BREATHING PATTERN. absent: Respiratory Distress - Cardiovascular Exam Cardiovascular Exam: REGULAR RHYTHM, RRR, +S1, +S2. absent: JVD - GI/Abdominal Exam GI & Abdominal Exam: Normal Bowel Sounds. absent: Organomegaly - Extremities Exam Extremities Exam: absent: Calf Tenderness, Pedal Edema - Neurological Exam Neurological Exam: Oriented x3. absent: Motor Sensory Deficit - Psychiatric Exam Psychiatric exam: Normal Affect, Normal Mood Assessment and Plan - Assessment and Plan (Free Text) Assessment: 68 year old female with chest pain I ordered serial trop and they are negative. EKG is negative for ischemia. Bradycardia is sinus without evidence of presyncope HTN is chronic and stable on losartan, can increase 50mg po daily Hyperlipidemia is chronic and stable on crestor
--- NOTE | 2018-11-20 16:08 | CP.PCM.PN ---
Subjective - Date & Time of Evaluation Date of Evaluation: 11/20/18 Time of Evaluation: 09:15 - Subjective Subjective: Patient still on multiple psych medicines The status post is seen by cardiology No nausea No vomiting Pt seen and examined at bedside. Nursing reports no acute events overnight. Patient found lying comfortably in room 653A. Patient complains of pain in the left breast that radiates to chest. She still complains of persistent mid garcia um chest pain that is ever-present, non radiating, sharp in quality, and reproducible with arm movement. Tolerating diet and voiding without difficulty. Denies fever, chills, dyspnea at rest or exertion. Objective - Vital Signs/Intake and Output Vital Signs (last 24 hours): Temp Pulse Resp BP Pulse Ox 97.8 F 59 L 20 163/67 H 95 11/20/18 07:00 11/20/18 15:39 11/20/18 07:00 11/20/18 14:57 11/20/18 07:00 - Medications Medications: Current Medications Aspirin (Aspirin) 325 mg PO DAILY [facility] Last Admin: 11/20/18 09:13 Dose: 325 mg Enoxaparin Sodium (Lovenox) 40 mg SC DAILY [facility] Last Admin: 11/20/18 09:13 Dose: 40 mg Ergocalciferol (Drisdol 50,000 Intl Units Cap) 1 cap PO QWK [facility] Last Admin: 11/19/18 10:15 Dose: 1 cap Fluticasone Propionate (Flonase) 1 spr DUGLAS DAILY [facility] Gabapentin (Neurontin) 400 mg PO Q12 [facility] Last Admin: 11/20/18 09:13 Dose: 400 mg Losartan Potassium (Cozaar) 25 mg PO DAILY [facility] Last Admin: 11/20/18 09:13 Dose: 25 mg Pantoprazole Sodium (Protonix Ec Tab) 40 mg PO DAILY [facility] Last Admin: 11/20/18 09:13 Dose: 40 mg Potassium Chloride (K-Dur 20 Meq Er Tab) 40 meq PO BRK [facility] Last Admin: 11/20/18 08:37 Dose: 40 meq Rosuvastatin Calcium (Crestor) 5 mg PO HS [facility] Last Admin: 11/19/18 21:18 Dose: 5 mg Sertraline HCl (Zoloft) 100 mg PO DAILY [facility] Last Admin: 11/20/18 09:14 Dose: 100 mg Trazodone HCl (Desyrel) 100 mg PO QPM [facility] Last Admin: 11/19/18 17:30 Dose: 100 mg Ziprasidone (Geodon Cap) 40 mg PO BID [facility] Last Admin: 11/20/18 09:13 Dose: 40 mg - Labs Labs: 11/20/18 08:08 11/20/18 08:08 - Constitutional Appears: Well - Head Exam Head Exam: ATRAUMATIC, NORMAL INSPECTION, NORMOCEPHALIC - Eye Exam Eye Exam: EOMI, Normal appearance, PERRL Pupil Exam: NORMAL ACCOMODATION, PERRL - ENT Exam ENT Exam: Mucous Membranes Moist, Normal Exam - Neck Exam Neck Exam: Full ROM, Normal Inspection. absent: Lymphadenopathy - Respiratory Exam Respiratory Exam: Decreased Breath Sounds - Cardiovascular Exam Cardiovascular Exam: REGULAR RHYTHM, +S1, +S2 - GI/Abdominal Exam GI & Abdominal Exam: Soft, Diminished Bowel Sounds - Rectal Exam Rectal Exam: Deferred - Neurological Exam Neurological Exam: Oriented x3 Assessment and Plan (1) Chest discomfort Status: Acute (2) Dizziness Status: Acute (3) Head injury due to trauma Status: Acute (4) Sinus bradycardia Status: Acute (5) Abdominal pain Status: Acute (6) Acute diarrhea Status: Acute (7) Acute recurrent sphenoidal sinusitis Status: Acute (8) Adrenal adenoma Status: Acute (9) Alcohol intoxication Status: Acute (10) Anemia Status: Acute (11) Bleeding from breast Status: Acute (12) Bradycardia Status: Acute (13) Breast cyst Status: Acute (14) Breast pain, right Status: Acute (15) Bronchitis Status: Acute (16) Cellulitis Status: Acute (17) Cellulitis of breast Status: Acute (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, acute Status: Acute (19) Cervicitis Status: Acute (20) Chest pain Status: Acute (21) Chest pain of unknown etiology Status: Acute (22) Closed head injury Status: Acute (23) Constipation Status: Acute (24) Contusion of buttock Status: Acute (25) Diarrhea Status: Acute (26) Elevated lipase Status: Acute (27) Fall Status: Acute (28) Gastroenteritis Status: Acute (29) Genital herpes Status: Acute (30) HTN (hypertension) Status: Acute (31) Headache Status: Acute (32) Low back pain Status: Acute (33) MDD (major depressive disorder) Status: Acute (34) Migraine Status: Acute (35) Nausea Status: Acute (36) Nausea & vomiting Status: Acute (37) Pancreatitis Status: Acute (38) Shingles Status: Acute (39) Skin irritation Status: Acute (40) Syncope Status: Acute (41) Syncope Status: Acute (42) Syncope and collapse Status: Acute (43) UTI (urinary tract infection) Status: Acute (44) Vertigo Status: Acute (45) Vertigo Status: Acute (46) Vomiting Status: Acute (47) Schizoaffective disorder Status: Chronic - Assessment and Plan (Free Text) Plan: s/p cardio cardio note apprecaited HTN is chronic and stable on losartan, can increase 50mg po daily Hyperlipidemia is chronic and stable on crestor Assessment and Plan (Free Text) Plan: Chest pain, R/o ACS Likely secondary to muscle strain from s/p fall EKG (11/17/18): bradycardia at 49 bpm, no acute ST changes, No QTc elongation Troponin negative x3 A1c: 5.3 (04/2018) Cardiology consulted, Dr. Esparza/Chris help appreciated Recent myocardial perfusion study (03/2018) with no ischemia; EF 70% Previous Echo shows EF 50-55% ASA 325mg f/u lipid panel, A1c Bradycardia Overnight, pt in 40s EKG, Tele shows no sign of heart block (NE interval extension, dropped beat) f/u TSH Intraductal papilloma S/P right breast lumpectomy Patient has a scheduled outpatient mammogram on 11/25/18 Presyncopal episode/Fall CT Head (11/18/18): IMPRESSION: No acute intracranial abnormality. Inflammatory changes within the left sphenoid and ethmoid sinuses. Clinical correlation advised. CXR (11/18/18): NAD EKG (11/17/18): bradycardia at 49 bpm, no acute ST changes, No QTc elongation Hypertension Losartan 25mg Hyperlipidemia Crestor 5mg f/u lipid panel Sinusitis CT Head (11/18/18): IMPRESSION: No acute intracranial abnormality. Inflammatory changes within the left sphenoid and ethmoid sinuses. Clinical correlation advised. Start Flonase intranasally Daily Bipolar disorder, depression Psychiatry consulted, Dr. Bryant help appreciated Geodon 40mg BID Zoloft 100mg Daily Trazodone 100mg QHS Gabapentin 400mg Q12H Prophylactic measures Lovenox 40mg SC Daily Protonix 40mg PO Daily [facility] Disposition: F/u cardiac reccs
[2018-11-20] MEDS ORDERED: Naproxen 550 mg Tab PO ONE (17:24)
[2018-11-21 07:49] LABS: BASO % 0.5 % (0.0-2.0); EOS % 0.8 % (0.0-4.0); LYMPH # 2.2 K/uL (1.0-4.3); LYMPH % 52.1 % (20.0-40.0); MEAN CELL VOLUME 76.6 fL (81.0-99.0); MEAN CORPUSCULAR HEMOGLOBIN 25.4 pg (27.0-31.0); MEAN CORPUSCULAR HGB CONC 33.1 g/dL (33.0-37.0); MEAN PLATELET VOLUME 8.6 fL (7.2-11.7); MONO # 0.3 K/uL (0.0-0.8); MONO % 6.9 % (0.0-10.0); NEUT # 1.7 K/uL (1.8-7.0); NEUT % 39.7 % (50.0-75.0); NRBC % 0.1 % (0.0-2.0); RBC 5.14 Mil/uL (3.80-5.20); RED CELL DISTRIBUTION WIDTH 14.5 % (11.5-14.5); WHITE BLOOD COUNT 4.3 K/uL (4.8-10.8)
[2018-11-21 08:02] LABS: ALB/GLOB RATIO 1.4 (1.0-2.1); ALBUMIN 4.3 g/dL (3.5-5.0); ALT/SGPT 22 U/L (9-52); AST/SGOT 22 U/L (14-36); BLOOD UREA NITROGEN 15 mg/dL (7-17); CALCIUM 9.2 mg/dl (8.6-10.4); GFR NON-AFRICAN AMERICAN > 60; HDL CHOLESTEROL 77 mg/dL (30-70)
[2018-11-21 08:29] LABS: LDL CHOLESTEROL 78 mg/dL (0-129)
[2018-11-21] MEDS: Potassium Chloride 20 mEq ER Tab PO SCH (08:41)
[2018-11-21] MEDS: Fluticasone Nasal 50 mcg/Spray NAS SCH (09:42)
[2018-11-21] MEDS: Pantoprazole 40 mg EC Tab PO SCH (09:43)
[2018-11-21] MEDS: Enoxaparin 40 mg Syringe SC SCH (09:43)
--- NOTE | 2018-11-21 20:59 | CP.PCM.PN ---
Subjective - Date & Time of Evaluation Date of Evaluation: 11/21/18 - Subjective Subjective: patient seen and examined no nausea no vomiting no diarrhea no dizziness no fever Objective - Vital Signs/Intake and Output Vital Signs (last 24 hours): Temp Pulse Resp BP Pulse Ox 97.4 F L 63 18 140/76 95 11/21/18 15:53 11/21/18 18:00 11/21/18 15:53 11/21/18 15:53 11/21/18 15:53 - Medications Medications: Current Medications Acetaminophen (Tylenol 325mg Tab) 650 mg PO Q6 PRN PRN Reason: Pain, moderate (4-7) Aspirin (Aspirin) 325 mg PO DAILY [facility] Last Admin: 11/21/18 09:42 Dose: 325 mg Enoxaparin Sodium (Lovenox) 40 mg SC DAILY [facility] Last Admin: 11/21/18 09:43 Dose: 40 mg Ergocalciferol (Drisdol 50,000 Intl Units Cap) 1 cap PO QWK [facility] Last Admin: 11/19/18 10:15 Dose: 1 cap Fluticasone Propionate (Flonase) 1 spr [place] DAILY [facility] Last Admin: 11/21/18 09:42 Dose: 1 spr Gabapentin (Neurontin) 400 mg PO Q12 [facility] Last Admin: 11/21/18 09:43 Dose: 400 mg Losartan Potassium (Cozaar) 50 mg PO DAILY [facility] Pantoprazole Sodium (Protonix Ec Tab) 40 mg PO DAILY [facility] Last Admin: 11/21/18 09:43 Dose: 40 mg Potassium Chloride (K-Dur 20 Meq Er Tab) 40 meq PO BRK [facility] Last Admin: 11/21/18 08:41 Dose: 40 meq Rosuvastatin Calcium (Crestor) 5 mg PO HS [facility] Last Admin: 11/20/18 21:30 Dose: 5 mg Sertraline HCl (Zoloft) 100 mg PO DAILY [facility] Last Admin: 11/21/18 09:42 Dose: 100 mg Trazodone HCl (Desyrel) 100 mg PO QPM [facility] Last Admin: 11/21/18 17:26 Dose: 100 mg Ziprasidone (Geodon Cap) 40 mg PO BID [facility] Last Admin: 11/21/18 17:25 Dose: 40 mg - Labs Labs: 11/21/18 07:16 11/21/18 07:16 - Constitutional Appears: Well - Head Exam Head Exam: ATRAUMATIC, NORMAL INSPECTION, NORMOCEPHALIC - Eye Exam Eye Exam: EOMI, Normal appearance, PERRL Pupil Exam: NORMAL ACCOMODATION, PERRL - ENT Exam ENT Exam: Mucous Membranes Moist, Normal Exam - Neck Exam Neck Exam: Full ROM, Normal Inspection. absent: Lymphadenopathy - Respiratory Exam Respiratory Exam: Decreased Breath Sounds - Cardiovascular Exam Cardiovascular Exam: REGULAR RHYTHM, +S1, +S2 - GI/Abdominal Exam GI & Abdominal Exam: Soft, Diminished Bowel Sounds - Rectal Exam Rectal Exam: Deferred - Neurological Exam Neurological Exam: Oriented x3 Assessment and Plan (1) Chest discomfort Status: Acute (2) Dizziness Status: Acute (3) Head injury due to trauma Status: Acute (4) Sinus bradycardia Status: Acute (5) Abdominal pain Status: Acute (6) Acute diarrhea Status: Acute (7) Acute recurrent sphenoidal sinusitis Status: Acute (8) Adrenal adenoma Status: Acute (9) Alcohol intoxication Status: Acute (10) Anemia Status: Acute (11) Bleeding from breast Status: Acute (12) Bradycardia Status: Acute (13) Breast cyst Status: Acute (14) Breast pain, right Status: Acute (15) Bronchitis Status: Acute (16) Cellulitis Status: Acute (17) Cellulitis of breast Status: Acute (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, acute Status: Acute (19) Cervicitis Status: Acute (20) Chest pain Status: Acute (21) Chest pain of unknown etiology Status: Acute (22) Closed head injury Status: Acute (23) Constipation Status: Acute (24) Contusion of buttock Status: Acute (25) Diarrhea Status: Acute (26) Elevated lipase Status: Acute (27) Fall Status: Acute (28) Gastroenteritis Status: Acute (29) Genital herpes Status: Acute (30) HTN (hypertension) Status: Acute (31) Headache Status: Acute (32) Low back pain Status: Acute (33) MDD (major depressive disorder) Status: Acute (34) Migraine Status: Acute (35) Nausea Status: Acute (36) Nausea & vomiting Status: Acute (37) Pancreatitis Status: Acute (38) Shingles Status: Acute (39) Skin irritation Status: Acute (40) Syncope Status: Acute (41) Syncope Status: Acute (42) Syncope and collapse Status: Acute (43) UTI (urinary tract infection) Status: Acute (44) Vertigo Status: Acute (45) Vertigo Status: Acute (46) Vomiting Status: Acute (47) Schizoaffective disorder Status: Chronic - Assessment and Plan (Free Text) Plan: plan discussed with patient modern complexity of care vitals reviewed labs reviewed medications reviewed aspirin tammi aly flopalmirae gedon cap k-dur lovenox neurontin protonix ec tab tylenol zoloft
[2018-11-22 08:06] LABS: BASO % 0.4 % (0.0-2.0); EOS % 0.5 % (0.0-4.0); HEMOGLOBIN 12.7 g/dL (11.0-16.0); LYMPH # 1.5 K/uL (1.0-4.3); LYMPH % 47.2 % (20.0-40.0); MEAN CELL VOLUME 75.7 fL (81.0-99.0); MEAN CORPUSCULAR HEMOGLOBIN 25.2 pg (27.0-31.0); MEAN CORPUSCULAR HGB CONC 33.3 g/dL (33.0-37.0); MEAN PLATELET VOLUME 8.2 fL (7.2-11.7); MONO # 0.3 K/uL (0.0-0.8); MONO % 8.1 % (0.0-10.0); NEUT # 1.4 K/uL (1.8-7.0); NEUT % 43.8 % (50.0-75.0); NRBC % 0.1 % (0.0-2.0); RBC 5.02 Mil/uL (3.80-5.20); RED CELL DISTRIBUTION WIDTH 14.7 % (11.5-14.5); WHITE BLOOD COUNT 3.2 K/uL (4.8-10.8)
[2018-11-22 08:24] LABS: ALB/GLOB RATIO 1.4 (1.0-2.1); ALBUMIN 4.1 g/dL (3.5-5.0); ALT/SGPT 21 U/L (9-52); AST/SGOT 37 U/L (14-36); BLOOD UREA NITROGEN 15 mg/dL (7-17); CALCIUM 9.2 mg/dl (8.6-10.4); GFR NON-AFRICAN AMERICAN > 60
[2018-11-22 08:47] VITALS: O2SAT 96
[2018-11-22] MEDS: Potassium Chloride 20 mEq ER Tab PO SCH (09:37)
[2018-11-22] MEDS: Pantoprazole 40 mg EC Tab PO SCH (09:37)
[2018-11-22] MEDS: Enoxaparin 40 mg Syringe SC SCH (09:40)
[2018-11-22] MEDS: Fluticasone Nasal 50 mcg/Spray NAS SCH (09:44)
--- NOTE | 2018-11-22 14:02 | CP.PCM.DIS ---
Provider - Provider Date of Admission: 11/21/18 13:01 Attending physician: Andrés Ramos MD Consults: 11/18/18 22:59 Cardiology Consult Routine Comment: Consulting Provider: Quoc Cote Consulting Physician: Quoc Cote Reason for Consult: Chest pain 11/18/18 23:01 Psychiatry Consult Routine Comment: Consulting Provider: Josesito Bryant Consulting Physician: Josseito Bryant Reason for Consult: Bipolar Disorder Time Spent in preparation of Discharge (in minutes): 30 Diagnosis - Discharge Diagnosis (1) Chest discomfort Status: Acute (2) Dizziness Status: Acute (3) Head injury due to trauma Status: Acute (4) Sinus bradycardia Status: Acute Comment: no pacemaker. cleared by dr. 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, acute Status: Acute (19) Cervicitis Status: Acute (20) Chest pain Status: Acute (21) Chest pain of unknown etiology Status: Acute (22) Closed head injury Status: Acute (23) Constipation Status: Acute (24) Contusion of buttock Status: Acute (25) Diarrhea Status: Acute (26) Elevated lipase Status: Acute (27) Fall Status: Acute (28) Gastroenteritis Status: Acute (29) Genital herpes Status: Acute (30) HTN (hypertension) Status: Acute (31) Headache Status: Acute (32) Low back pain Status: Acute (33) MDD (major depressive disorder) Status: Acute (34) Migraine Status: Acute (35) Nausea Status: Acute (36) Nausea & vomiting Status: Acute (37) Pancreatitis Status: Acute (38) Shingles Status: Acute (39) Skin irritation Status: Acute (40) Syncope Status: Acute (41) Syncope Status: Acute (42) Syncope and collapse Status: Acute (43) UTI (urinary tract infection) Status: Acute (44) Vertigo Status: Acute (45) Vertigo Status: Acute (46) Vomiting Status: Acute (47) Schizoaffective disorder Status: Chronic Hospital Course - Lab Results Lab Results: Most Recent Lab Values WBC 3.2 K/uL (4.8-10.8) L 11/22/18 07:47 RBC 5.02 Mil/uL (3.80-5.20) 11/22/18 07:47 Hgb 12.7 g/dL (11.0-16.0) 11/22/18 07:47 Hct 38.0 % (34.0-47.0) 11/22/18 07:47 MCV 75.7 fL (81.0-99.0) L 11/22/18 07:47 MCH 25.2 pg (27.0-31.0) L 11/22/18 07:47 MCHC 33.3 g/dL (33.0-37.0) 11/22/18 07:47 RDW 14.7 % (11.5-14.5) H 11/22/18 07:47 Plt Count 182 K/uL (130-400) 11/22/18 07:47 MPV 8.2 fL (7.2-11.7) 11/22/18 07:47 Neut % (Auto) 43.8 % (50.0-75.0) L 11/22/18 07:47 Lymph % (Auto) 47.2 % (20.0-40.0) H 11/22/18 07:47 [place] % (Auto) 8.1 % (0.0-10.0) 11/22/18 07:47 Eos % (Auto) 0.5 % (0.0-4.0) 11/22/18 07:47 Baso % (Auto) 0.4 % (0.0-2.0) 11/22/18 07:47 Neut # (Auto) 1.4 K/uL (1.8-7.0) L 11/22/18 07:47 Lymph # (Auto) 1.5 K/uL (1.0-4.3) 11/22/18 07:47 [place] # (Auto) 0.3 K/uL (0.0-0.8) 11/22/18 07:47 Eos # (Auto) 0.0 K/uL (0.0-0.7) 11/22/18 07:47 Baso # (Auto) 0.0 K/uL (0.0-0.2) 11/22/18 07:47 Sodium 140 mmol/L (132-148) 11/22/18 07:47 Potassium 4.2 mmol/L (3.6-5.2) 11/22/18 07:47 Chloride 106 mmol/L (98-107) 11/22/18 07:47 Carbon Dioxide 25 mmol/L (22-30) 11/22/18 07:47 Anion Gap 14 (10-20) 11/22/18 07:47 BUN 15 mg/dL (7-17) 11/22/18 07:47 Creatinine 0.8 mg/dL (0.7-1.2) 11/22/18 07:47 Est GFR ( Amer) > 60 11/22/18 07:47 Est GFR (Non-Af Amer) > 60 11/22/18 07:47 POC Glucose (mg/dL) 119 mg/dL (65-110) H 11/18/18 17:54 Random Glucose 97 mg/dL (65-105) 11/22/18 07:47 Hemoglobin A1c 6.2 % (4.2-6.5) 11/21/18 07:16 Calcium 9.2 mg/dl (8.6-10.4) 11/22/18 07:47 Phosphorus 3.9 mg/dL (2.5-4.5) 11/22/18 07:47 Magnesium 1.9 mg/dL (1.6-2.3) 11/22/18 07:47 Total Bilirubin 0.4 mg/dL (0.2-1.3) 11/22/18 07:47 AST 37 U/L (14-36) H D 11/22/18 07:47 ALT 21 U/L (9-52) 11/22/18 07:47 Alkaline Phosphatase 61 U/L (38-126) 11/22/18 07:47 Total Creatine Kinase 92 U/L (30-135) 11/19/18 14:01 CK-MB (Mass) 0.64 ng/mL (0.0-3.38) 11/19/18 14:01 Troponin I < 0.0120 ng/mL (0.00-0.120) 11/19/18 14:01 Total Protein 7.0 g/dL (6.3-8.3) 11/22/18 07:47 Albumin 4.1 g/dL (3.5-5.0) 11/22/18 07:47 Globulin 2.9 gm/dL (2.2-3.9) 11/22/18 07:47 Albumin/Globulin Ratio 1.4 (1.0-2.1) 11/22/18 07:47 Triglycerides 79 mg/dL (0-149) D 11/21/18 07:16 Cholesterol 178 mg/dL (0-199) 11/21/18 07:16 LDL Cholesterol Direct 78 mg/dL (0-129) 11/21/18 07:16 HDL Cholesterol 77 mg/dL (30-70) H 11/21/18 07:16 TSH 3rd Generation 2.27 mIU/L (0.46-4.68) 11/21/18 07:16 - Hospital Course Hospital Course: Is medically cleared by cardiology status post here patient's blood test were reviewed to the patient's patient's heart rate went up patient advised to stop the bisoprolol patient advised to return to the ER if condition worsens bp 159/89 heart rate 65 no dizyness work up as outpt pt understnads Discharge Exam - Head Exam Head Exam: ATRAUMATIC, NORMAL INSPECTION, NORMOCEPHALIC - Eye Exam Eye Exam: EOMI, Normal appearance, PERRL Pupil Exam: NORMAL ACCOMODATION, PERRL - Neck Exam Neck exam: Normal Inspection - Respiratory Exam Respiratory Exam: Decreased Breath Sounds - Cardiovascular Exam Cardiovascular Exam: Bradycardia, REGULAR RHYTHM, +S1, +S2 - GI/Abdominal Exam GI & Abdominal Exam: Diminished Bowel Sounds, Normal Bowel Sounds - Rectal Exam Rectal Exam: Deferred - Neurological Exam Neurological exam: Oriented x3 Discharge Plan - Follow Up Plan Condition: STABLE Disposition: HOME/ ROUTINE Instructions: Syncope (Fainting), Angina, Acetaminophen, Losartan, Rosuvastatin, Rotavirus Infection (DC), Rotavirus Infection (GEN), Acute Abdominal Pain (DC), Acute Abdominal Pain (GEN), Nutrition Tips for Relief of Diarrhea (DC), Nutrition Tips for Relief of Diarrhea (GEN)
[2018-11-22 18:44] VITALS: BP 155/89; PULSE 63; RESP 20; TEMP 97.2
== END 2018-11-22 19:11 | disposition home or self-care (01) | DRG 563 ==
LOC: C.ER 17:38 → C.6T 20:20 → OBSVTOIN 11-21 13:01
PROVIDERS: ADMIT Internal Medicine Nephrology; ATTEND Internal Medicine Nephrology
DX: S29.011A Strain of muscle and tendon of front wall of thorax, initial encounter (principal); F33.2 Major depressive disorder, recurrent severe without psychotic features; R07.89 Other chest pain; S09.90XA Unspecified injury of head, initial encounter; S30.0XXA Contusion of lower back and pelvis, initial encounter; W10.8XXA Fall (on) (from) other stairs and steps, initial encounter; I10 Essential (primary) hypertension; Y92.008 Other place in unspecified non-institutional (private) residence as the place of occurrence of the external cause; R42 Dizziness and giddiness; N72 Inflammatory disease of cervix uteri; E11.9 Type 2 diabetes mellitus without complications; E78.5 Hyperlipidemia, unspecified; F31.9 Bipolar disorder, unspecified; R00.1 Bradycardia, unspecified; J45.909 Unspecified asthma, uncomplicated; M19.90 Unspecified osteoarthritis, unspecified site; Z98.49 Cataract extraction status, unspecified eye; Z79.82 Long term (current) use of aspirin; Z79.899 Other long term (current) drug therapy; G43.909 Migraine, unspecified, not intractable, without status migrainosus; J01.31 Acute recurrent sphenoidal sinusitis

== ENCOUNTER 2018-11-25 10:31 | Outpatient (CLI) | payer MEDICARE, OTHER, MEDICAID | END 2018-11-25 10:32 | disposition home or self-care (01) | LOC: C.MAMMO 10:31 | DX: N64.4 Mastodynia (principal); R92.8 Other abnormal and inconclusive findings on diagnostic imaging of breast ==

== ENCOUNTER 2018-12-05 22:10 | Emergency (ER) | payer MEDICARE, OTHER ==
[2018-12-05 22:11] VITALS: BMI 29.8
[2018-12-05 22:16] VITALS: BP 152/78; PULSE 76; RESP 18; TEMP 97.4; O2SAT 100
--- NOTE | 2018-12-06 00:07 | C.PDOC ---
History Of Present Illness 68-year-old female presents to the emergency department status post taking a fall prior to arrival. Patient reports having a few drinks tonight and after falling, hitting her right side of forehead. Patient was brought into the ED by EMS, patient denies any other injuries at this time. - HPI Time Seen by Provider: 12/05/18 22:22 Chief Complaint (Nursing): Trauma History Per: Patient History/Exam Limitations: no limitations Onset/Duration Of Symptoms: Hrs Location Of Injury: Right: Head, Anterior: Head - Fall Fall:Prior To Injury: Other (as a result of intoxication) Past Medical History Reviewed: Historical Data, Nursing Documentation, Vital Signs Vital Signs: Last Vital Signs Temp 97.4 F L 12/05/18 22:15 Pulse 76 12/05/18 22:15 Resp 18 12/05/18 22:15 BP 152/78 H 12/05/18 22:15 Pulse Ox 100 12/05/18 22:15 Primary Care Provider: Jr Mcdaniel - Medical History PMH: Anxiety, Asthma (NEVER HOSPITALIZED"IT WENT AWAY"), Bipolar Disorder, Depression, Gastritis, HTN, Hypercholesterolemia, Personality Disorder, Schizophrenia Denies: Diabetes, Hepatitis, Chronic Kidney Disease Surgical History: Endoscopy - [facility]YCHOTHER[facility]Y (05/19/18) Family History: States: No Known Family Hx - Social History Hx Alcohol Use: Yes Hx Substance Use: No - Immunization History Hx Tetanus Toxoid Vaccination: No Hx Influenza Vaccination: Yes Hx Pneumococcal Vaccination: Yes (07/2015) Review Of Systems Constitutional: Negative for: Fever, Chills, Weakness ENT: Negative for: Nose Discharge, Nose Congestion, Throat Pain Cardiovascular: Negative for: Chest Pain Respiratory: Negative for: Cough, Shortness of Breath Gastrointestinal: Negative for: Nausea, Vomiting, Diarrhea Genitourinary: Negative for: Dysuria, Frequency, Hematuria Musculoskeletal: Positive for: Other (right-sided head injury) Neurological: Negative for: Weakness, Numbness Physical Exam - Physical Exam Additional Physical Exam Comments: General: Well, non-toxic, NAD Skin: normal, warm, no rash Head: Large hematoma to the left side of forehead. Eyes: Normal Inspection (no scleral icterus), PERRL, EOMI Ears: Normal (no drainage) Nose: normal Throat: Normal (no swelling or injection), No Exudate, Other (Airway patent) Mucosa moist Neck: supple, normal ROM Chest: Symmetrical Respiratory: No accessory muscle use, other (Normal inspiratory effort) Back: Ambulating with steady upright gait Extremities: Atraumatic, Normal ROM Radial pulses 2+ Neuro: Oriented x3, Cranial nerves grossly intact ED Course And Treatment O2 Sat by Pulse Oximetry: 100 - CT Scan/US CT Head Other Rad Studies (CT/US): Read By Radiologist, Radiology Report Reviewed CT/US Interpretation: EXAM: CT Head Without IV contrast. CLINICAL HISTORY: H ead injury. TECHNIQUE: Axial computed tomography images of the head/brain without intravenous contrast. COMPARISON: CT - HEAD W/CONTRAST - 11/18/2018 07:31 PM EDT. FINDINGS: BRAIN: No CT evidence for acute intracranial abnormality. VENTRICLES: No hydrocephalus. ORBITS: The orbits are unremarkable. SINUSES AND MASTOIDS: Mild mucosal thickening of the left sphenoid sinus, less than seen on November 18, [address] Previously seen mucosal thickening of left ethmoid sinuses has resolved. BONES: No fracture. SOFT TISSUES: Prominent left frontoparietal scalp hematoma and soft tissue swelling. There is a question of some small gas bubbles in this region, raising the possibility of penetrating trauma. Please correlate clinically. IMPRESSION: 1. Mild mucosal thickening of the left sphenoid sinus, less than seen on November 18, [address] Previously seen mucosal thickening of left ethmoid sinuses has resolved. 2. No CT evidence for acute intracranial abnormality. 3. Prominent left frontoparietal scalp hematoma and soft tissue swelling. There is a question of some small gas bubbles in this region, raising the possibility of penetrating trauma. Please correlate clinically. Medical Decision Making Medical Decision Making: Plan: CT Head Motrin 800mg PO Patient's brain CT did not show any acute intracranial abnormalities. Minor head injury precaution paperwork given to patient. Patient's gait was tested prior to leaving and was tested, she was also AOx3. A cab was called for the patient and she was discharged home. Disposition Counseled Patient/Family Regarding: Diagnosis, Need For Followup, Rx Given - Disposition Referrals: Jr Mcdaniel MD [Primary Care Provider] - Disposition: HOME/ ROUTINE Disposition Time: 00:06 Condition: STABLE Prescriptions: Ibuprofen [Motrin Tab] 800 mg PO TID PRN #21 tab PRN Reason: Pain, Moderate (4-7) Instructions: Head Injury (ED) Forms: [facility] ([place]), General Discharge Instructions - Clinical Impression Clinical Impression: Head injury due to trauma, Traumatic hematoma of forehead - PA / DOCTOR OF NURSING PRACTICE / Resident Statement MD/DO has reviewed & agrees with the documentation as recorded. - Scribe Statement The provider has reviewed the documentation as recorded by the Scribe ([place]) All medical record entries made by the Scribe were at my direction and personally dictated by me. I have reviewed the chart and agree that the record accurately reflects my personal performance of the history, physical exam, medical decision making, and the department course for this patient. I have also personally directed, reviewed, and agree with the discharge instructions and disposition.
[2018-12-06] MEDS ORDERED: Bacitracin 500 Units/gm Oint Foilpak UD ONE (00:11)
--- NOTE | 2018-12-06 10:46 | CT ---
Date of service: 12/05/2018 PROCEDURE: CT HEAD WITHOUT CONTRAST. HISTORY: Head injury COMPARISON: Comparison made with CT scan brain 11/18/2018. TECHNIQUE: Axial computed tomography images were obtained through the head/brain without intravenous contrast. Radiation dose: Total exam DLP = 1020.56 mGy-cm. This CT exam was performed using one or more of the following dose reduction techniques: Automated exposure control, adjustment of the mA and/or kV according to patient size, and/or use of iterative reconstruction technique. FINDINGS: HEMORRHAGE: No acute parenchymal, subarachnoid nor extra-axial hemorrhage. BRAIN: Mild chronic periventricular white matter ischemic changes seen extending peripherally into the deep and subcortical white matter both cerebral hemispheres.. There may be a few tiny chronic bilateral basal nuclei lacunar type infarcts. Moderate central volume loss. VENTRICLES: No obstructive hydrocephalus. CALVARIUM: No acute calvarial fractures. Large left frontoparietal scalp contusion. PARANASAL SINUSES: Minimal mucosal thickening seen within a left aspect of the sphenoid sinus MASTOID AIR CELLS: Unremarkable as visualized. No inflammatory changes. OTHER FINDINGS: None. IMPRESSION: No acute intracranial hemorrhage. Mild chronic white matter ischemic changes with suspected few chronic bilateral basal nuclei lacunar type infarcts. Moderate generalized volume loss. Large left frontoparietal scalp contusion.
== END 2018-12-06 00:15 | disposition home or self-care (01) ==
LOC: SUPCPDRO 22:10 → C.ER 22:10
DX: S00.83XA Contusion of other part of head, initial encounter (principal); W19.XXXA Unspecified fall, initial encounter